=== PATIENT | female | born 1965 | race Caucasian/White ===

== ENCOUNTER → 2017-05-07 | Outpatient (CLI) | payer BC ==
[~2017-05-07] MED LIST: ACET-749 PO; CLRD24 PO; FRRG27 PO; MULT-506 PO; NAPR-1169 PO; OSCAL PO
--- NOTE | 2017-05-08 07:57 | MAMMOGRAPHY REPORT ---
BILATERAL DIGITAL SCREENING MAMMOGRAM TOMOSYNTHESIS WITH CAD: 05/07/2017 CLINICAL HISTORY: Routine screening. TECHNIQUE: Breast tomosynthesis in addition to standard 2D mammography was performed. Current study was also evaluated with a Computer Aided Detection (CAD) system. COMPARISON: Comparison is made to exams dated: 05/03/2016 mammogram, 04/29/2015 mammogram, 04/28/2014 beto mogram, 04/27/2013 mammogram, 04/25/2012 mammogram, and 04/20/2011 mammogram - [facility] BREAST COMPOSITION: The tissue of both breasts is heterogeneously dense, which may obscure small mas ses. FINDINGS: There is stable asymmetry in the superior left breast. No suspicious mass, architectural d istortion or cluster of suspicious microcalcifications is seen. IMPRESSION: ACR BI-RADS CATEGORY 1: NEGATIVE There is no mammographic evidence of malignancy. A 1 year screening mammogram is recommended. The pa tient will receive written notification of the results. Approximately 10% of breast cancers are not detected with mammography. A negative mammographic report should not delay biopsy if a clinically suggestive mass is present. Machelle Pastor M.D. ay/:05/07/2017 16:29:30 Survival Equipment Repairer: Jani ROSE(Torie)(Schuyler), [facility] letter sent: Normal 1/2 BI-RADS Code: ACR BI-RADS Category 1: Negative
== END | disposition home or self-care (01) ==
LOC: C.MAMM 08:50
PROVIDERS: ATTEND Obstetrics & Gynecology
DX: Z12.31 Encounter for screening mammogram for malignant neoplasm of breast (principal)

== ENCOUNTER → 2017-06-03 | Outpatient (CLI) | payer BC | END | disposition home or self-care (01) | LOC: C.LABSPEC 13:39 | PROVIDERS: ATTEND Obstetrics & Gynecology | DX: N89.8 Other specified noninflammatory disorders of vagina (principal) ==

== ENCOUNTER → 2017-06-03 | Outpatient (CLI) | payer BC | END | disposition home or self-care (01) | LOC: C.PAPS 14:13 | PROVIDERS: ATTEND Obstetrics & Gynecology | DX: Z01.419 Encounter for gynecological examination (general) (routine) without abnormal findings (principal); Z78.0 Asymptomatic menopausal state ==

== ENCOUNTER 2021-07-02 15:21 | Inpatient (IN) ==
[2021-07-02] MEDS ORDERED: CEFEPIME 2,000 MG/20 ML VIAL IV STA (16:17)
[2021-07-02] MEDS ORDERED: REMDESIVIR 200 MG in SODIUM CHLORIDE 0.9% 210 ML IV STA (16:29)
[2021-07-02] MEDS ORDERED: SODIUM CHLORIDE 0.9% 1000ML 1,000 ML IV SCH ×2 (16:30→17:30)
[2021-07-02] MEDS ORDERED: SODIUM CHLORIDE 0.9% 10ML FLUSH IV SCH (16:30)
[2021-07-02] MEDS ORDERED: ACETAMINOPHEN 1,000 MG/100 ML VIAL IV STA (16:33)
[2021-07-02] MEDS ORDERED: ALBUT/IPRATROP 3MG/0.5MG NEB 3 ML VIAL NEB ONE (16:34)
--- NOTE | 2021-07-02 16:34 | Emergency Department Note ---
History of Present Illness General Chief complaint: Shortness of Breath/Dyspnea Stated complaint: SOB COUGH CONGESTION Time Seen by Provider: 07/02/21 16:16 History of Present Illness 56-year-old female who presents to the ED with a chief complaint of shortness of breath. The patient states that she had had some sinus infection-like symptoms and was tested for Covid on last Saturday. Her test was positive. Since that time she has developed a cough over the past couple of days, decreased appetite. Her shortness of breath that is worse with exertion. She also reports tightness in her chest. She also reports decreased energy. No additional complaints at this time. Home Medications Medication Instructions Recorded Confirmed Type cetirizine 10 mg capsule (Allergy 10 mg PO QA 06/16/19 06/20/20 History Relief (cetirizine)) montelukast 10 mg tablet 10 mg PO QA 06/16/19 06/20/20 History calcium carbonate 500 mg calcium 1,000 mg PO [facility] 03/25/20 06/20/20 History (1,250 mg) chewable tablet (Calcium 500) cyanocobalamin (vitamin B-12) 2,500 mcg PO [facility] 03/25/20 06/20/20 History 2,500 mcg tablet fluticasone propionate 50 1 spray INTRANASAL [facility] 03/25/20 06/20/20 History mcg/actuation nasal spray,suspension (Flonase Allergy Relief) hydrochlorothiazide 25 mg tablet 25 mg PO [facility] 03/25/20 06/20/20 History multivitamin 1 tab PO [facility] 03/25/20 06/20/20 History tramadol 50 mg tablet 50 mg PO Q6 PRN #28 tab 04/04/20 06/20/20 Rx clindamycin phosphate 1 % topical 1 applic TOPICAL BID #30 g 06/20/20 06/20/20 Rx gel escitalopram oxalate 5 mg tablet 5 mg PO DAILY #30 tab 07/25/20 Rx (Lexapro) Allergies Allergy/AdvReac Type Severity Reaction Status Date / Time gluten Allergy Severe celiac's Verified 06/20/20 10:11 disease wheat Allergy Severe celiac's Verified 06/20/20 10:11 diease adhesive Allergy Mild Rash Verified 06/20/20 10:11 Sulfa (Sulfonamide Allergy Unknown CHILDHOOD Verified 06/20/20 10:11 Antibiotics) - UNKNOWN Past Med/Surg History Medical History (Updated 07/02/21 @ 19:25 by Pj Sidhu DO) Anxiety Celiac disease eats gluten free HTN (hypertension) Hx of menorrhagia IBS (irritable bowel syndrome) Osteoarthritis Surgical History H/O sinus surgery History of colonoscopy History of dilatation and curettage History of wisdom tooth extraction S/P tubal ligation Status post hysteroscopic ablation of endometrium Family History Aunt Ovarian cancer maternal Breast cancer maternal Family history of diabetes mellitus Mother Breast cancer Other No family history of adverse response to anesthesia Social History Smoking Status: Never smoker Second Hand Exposure: Yes (parents smoked); Hx Alcohol Use: No Hx Substance Use: No Preferred Language: Belarusian Communication Ability: Effective Location Director Required: No Beliefs That Will Affect Care: None marital status: Current Living Situation: Spouse current occupational status: employed Feels Safe at Home: Yes Assistive Devices: Glasses Review of Systems A total of 10 systems reviewed and were otherwise negative Physical Exam Vital Signs Vital Signs - 24 hr 07/02/21 16:06 07/02/21 16:28 07/02/21 16:30 Temperature 39.1 C H Temperature Source Oral Pulse Rate 103 H 96 H Pulse Rate [Right Radial] Respiratory Rate 22 26 H Respiratory Effort / Characteristics Blood Pressure 97/58 L Blood Pressure Mean 71 Pulse Oximetry 56 L 90 92 Oxygen Delivery Method Room Air Oxymask Oxymask Oxygen Flow Rate 15 12 Sepsis Recent Fever Within 48 Hours Yes Sepsis New/Unexplained Change in Mental Status N/A Sepsis Action Taken by Nursing No Action Required 07/02/21 17:00 07/02/21 17:04 07/02/21 17:30 Temperature Temperature Source Pulse Rate 96 H 102 H Pulse Rate [Right Radial] 94 H Respiratory Rate 26 H 22 28 H Respiratory Effort / Characteristics Short of Breath Non-Labored Spontaneous Short of Breath Blood Pressure 129/60 Blood Pressure Mean 83 Pulse Oximetry 90 90 89 L Oxygen Delivery Method Oxymask Oxyhood Nebulizer Oxygen Flow Rate 12 12 10 Sepsis Recent Fever Within 48 Hours Sepsis New/Unexplained Change in Mental Status Sepsis Action Taken by Nursing 07/02/21 17:45 07/02/21 18:00 07/02/21 18:15 Temperature 37.8 C H Temperature Source Oral Pulse Rate 104 H 101 H 93 H Pulse Rate [Right Radial] Respiratory Rate 30 H 28 H 29 H Respiratory Effort / Characteristics Non-Labored Blood Pressure 121/57 L Blood Pressure Mean 78 Pulse Oximetry 89 L 78 L 78 L Oxygen Delivery Method Nebulizer Oxymask Non-rebreather Oxygen Flow Rate 10 12 15 Sepsis Recent Fever Within 48 Hours Sepsis New/Unexplained Change in Mental Status Sepsis Action Taken by Nursing 07/02/21 18:30 07/02/21 18:45 07/02/21 19:00 Temperature Temperature Source Pulse Rate 91 H 88 86 Pulse Rate [Right Radial] Respiratory Rate 26 H 24 24 Respiratory Effort / Characteristics Blood Pressure 121/63 124/66 Blood Pressure Mean 82 85 Pulse Oximetry 86 L 91 88 L Oxygen Delivery Method Non-rebreather Non-rebreather Non-rebreather Oxygen Flow Rate 15 15 15 Sepsis Recent Fever Within 48 Hours Sepsis New/Unexplained Change in Mental Status Sepsis Action Taken by Nursing CONSTITUTIONAL/VITAL SIGNS: Reviewed / noted above. GENERAL: Non-toxic in appearance. INTEGUMENTARY: Warm, dry, and [place]. HEAD: Normocephalic. EYES: without scleral icterus or trauma. ENT/OROPHARYNX: clear and moist. LYMPHADENOPATHY/NECK: Is supple without lymphadenopathy or meningismus. RESPIRATORY: Decreased breath sounds bilaterally with crackles in the bases. Mild increased work of breathing. CARDIOVASCULAR: Regular rate and rhythm. GI/ABDOMEN: Soft and nontender. No organomegaly or pulsatile mass. EXTREMITIES: Warm and well perfused. BACK: No CVA tenderness. NEUROLOGICAL: Intact without focal deficits. PSYCHIATRIC: normal affect. MUSCULOSKELETAL: Normally developed with good muscle tone. TRIAGE NURSING DOCUMENTATION REVIEWED. Procedures ABG Interpretation ABG Interpretation 1: ABG Results: pH 7.47/PCO2 35/PO2 49/84.7% Additional Comments: The patient has a normal acid-base status and adequate ventilation. Oxygenation is poor despite 10 L of oxygen via facemask. Course Administered Medications Dexamethasone 6 mg/ Syringe 1.5 mls @ 1 mls/min IV DAILY NAKIA Stop: 07/12/21 16:29 Last Admin: 07/02/21 18:08 Dose: 1 mls/min Documented by: [id number] Discontinued Medications Albuterol (Albut/Ipratrop 3mg/0.5mg Neb 3 Ml Vial) 12 ml NEB ONE ONE Stop: 07/02/21 16:35 Last Admin: 07/02/21 17:02 Dose: 12 ml Documented by: [id number] Sodium Chloride (Nss 1000ml) 1,000 mls @ 999 mls/hr IV .Q1H1M NAKIA Stop: 07/02/21 17:18 Last Infusion: 07/02/21 19:14 Dose: 999 mls/hr Documented by: [id number] Admin: 07/02/21 17:13 Dose: 999 mls/hr Documented by: [id number] Sodium Chloride (Nss 1000ml) 1,000 mls @ 999 mls/hr IV .Q1H1M NAKIA Stop: 07/02/21 18:29 Last Admin: 07/02/21 18:14 Dose: 999 mls/hr Documented by: [id number] Cefepime HCl (Maxipime) 2,000 mg in 20 mls @ 5 mls/min IV NOW STA; Protocol Stop: 07/02/21 16:20 Last Admin: 07/02/21 17:13 Dose: 5 mls/min Documented by: [id number] Remdesivir 200 mg/ Sodium (Chloride) 250 mls @ 125 mls/hr IV ONE STA; Protocol Stop: 07/02/21 18:28 Last Admin: 07/02/21 18:12 Dose: 125 mls/hr Documented by: [id number] Acetaminophen (Ofirmev) 1,000 mg in 100 mls @ 400 mls/hr IV NOW STA Stop: 07/02/21 16:47 Last Infusion: 07/02/21 17:31 Dose: 0 mls/hr Documented by: [id number] Admin: 07/02/21 17:13 Dose: 400 mls/hr Documented by: [id number] Critical Care Time Critical Care Time: Yes Total Critical Care Time: 40 I have personally spent 40 minutes of critical care time in the direct management of this patient. This includes bedside care, interpretation of diagnostic studies, and testing, discussion with consultants, patient, and family members, and other required patient management activities. This 40 minutes is in excess of all separately billable procedures. Medical Decision Making Differential Diagnosis Differential includes viral illness, influenza, streptococcal pharyngitis, meningitis, pneumonia, sinusitis, UTI, pyelonephritis, otitis media. Medical Records Attestation: I reviewed the patient's medical records. Home Medications Current Medication List: was personally reviewed by me Laboratory Data Attestation: I reviewed the patient's lab results. Result diagrams: 07/02/21 17:12 07/02/21 17:12 Lab Results 07/02/21 07/02/21 07/02/21 Range/Units 17:05 17:12 17:12 WBC 9.23 (4.8-10.8) K/uL RBC 4.06 L (4.2-5.4) M/uL Hgb 12.6 (12.0-16.0) g/dL Hct 36.4 L (37-47) % MCV 89.7 (80-100) fL MCH 31.0 (25-34) pg MCHC 34.6 (32-36) g/dL RDW Std Deviation 41.0 (36.4-46.3) fL RDW Coeff of Sheng 12.5 (11.5-14.5) % Plt Count 303 (130-400) K/uL MPV 9.6 (7.4-10.4) fL Immature Gran % (Auto) 1.1 % Neut % (Auto) 82.5 % Lymph % (Auto) 9.5 % [place] % (Auto) 6.5 % Eos % (Auto) 0.1 % Baso % (Auto) 0.3 % Neut # (Auto) 7.61 H (1.4-6.5) K/uL Lymph # (Auto) 0.88 L (1.2-3.4) K/uL [place] # (Auto) 0.60 H (0.11-0.59) K/uL Eos # (Auto) 0.01 (0-0.5) K/uL Baso # (Auto) 0.03 (0-0.2) K/uL Immature Gran # (Auto) 0.10 H (0.00-0.02) K/uL PT 10.6 (9.0-12.0) Seconds INR 1.0 (0.9-1.1) APTT 27.5 (21.0-31.0) Seconds PTT Ratio 1.0 ABG pH (7.35-7.45) ABG pCO2 (35-46) mmHg ABG pO2 (80-95) mmHg ABG HCO3 (19-24) mmol/L ABG O2 Saturation (90-95) % ABG Base Excess (-9-1.8) mEq/L Giovanni Test (Pos) Barometric Pressure mm/Hg Oxygen Given Sodium (136-145) mmol/L Potassium (3.5-5.1) mmol/L Chloride (98-107) mmol/L Carbon Dioxide (21-32) mmol/L Anion Gap (3-11) BUN (7-18) mg/dl Creatinine (0.6-1.2) mg/dl Est Cr Clr Drug Dosing ml/min Est GFR ( Amer) ml/min Est GFR (Non-Af Amer) ml/min BUN/Creatinine Ratio (10-20) Glucose (70-99) mg/dl Lactate (0.4-2.0) mmol/L Calcium (8.5-10.1) mg/dl Magnesium (1.8-2.4) mg/dl Total Bilirubin (0.2-1) mg/dl AST (15-37) U/L ALT (12-78) U/L Alkaline Phosphatase (45-117) U/L Troponin I (0-0.045) ng/ml Total Protein (6.4-8.2) gm/dl Albumin (3.4-5.0) gm/dl Globulin (2.5-4.0) gm/dl Albumin/Globulin Ratio (0.9-2) Procalcitonin (0-0.5) ng/ml COVID-19 Eval Order SARS-CoV-2 (PCR) POSITIVE A* (Negative) 07/02/21 07/02/21 07/02/21 Range/Units 17:12 17:12 17:12 WBC (4.8-10.8) K/uL RBC (4.2-5.4) M/uL Hgb (12.0-16.0) g/dL Hct (37-47) % MCV (80-100) fL MCH (25-34) pg MCHC (32-36) g/dL RDW Std Deviation (36.4-46.3) fL RDW Coeff of Sheng (11.5-14.5) % Plt Count (130-400) K/uL MPV (7.4-10.4) fL Immature Gran % (Auto) % Neut % (Auto) % Lymph % (Auto) % [place] % (Auto) % Eos % (Auto) % Baso % (Auto) % Neut # (Auto) (1.4-6.5) K/uL Lymph # (Auto) (1.2-3.4) K/uL [place] # (Auto) (0.11-0.59) K/uL Eos # (Auto) (0-0.5) K/uL Baso # (Auto) (0-0.2) K/uL Immature Gran # (Auto) (0.00-0.02) K/uL PT (9.0-12.0) Seconds INR (0.9-1.1) APTT (21.0-31.0) Seconds PTT Ratio ABG pH (7.35-7.45) ABG pCO2 (35-46) mmHg ABG pO2 (80-95) mmHg ABG HCO3 (19-24) mmol/L ABG O2 Saturation (90-95) % ABG Base Excess (-9-1.8) mEq/L Giovanni Test (Pos) Barometric Pressure mm/Hg Oxygen Given Sodium 131 L (136-145) mmol/L Potassium 3.4 L (3.5-5.1) mmol/L Chloride 92 L (98-107) mmol/L Carbon Dioxide 32 (21-32) mmol/L Anion Gap 7.0 (3-11) BUN 17 (7-18) mg/dl Creatinine 1.41 H (0.6-1.2) mg/dl Est Cr Clr Drug Dosing 43.2 ml/min Est GFR ( Amer) 47.5 ml/min Est GFR (Non-Af Amer) 41.0 ml/min BUN/Creatinine Ratio 12.3 (10-20) Glucose 143 H (70-99) mg/dl Lactate 2.0 (0.4-2.0) mmol/L Calcium 8.6 (8.5-10.1) mg/dl Magnesium 2.1 (1.8-2.4) mg/dl Total Bilirubin 0.6 (0.2-1) mg/dl AST 54 H (15-37) U/L ALT 36 (12-78) U/L Alkaline Phosphatase 73 (45-117) U/L Troponin I < 0.015 (0-0.045) ng/ml Total Protein 7.6 (6.4-8.2) gm/dl Albumin 2.5 L (3.4-5.0) gm/dl Globulin 5.1 H (2.5-4.0) gm/dl Albumin/Globulin Ratio 0.5 L (0.9-2) Procalcitonin 0.10 (0-0.5) ng/ml COVID-19 Eval Order SARS-CoV-2 (PCR) (Negative) 07/02/21 07/02/21 Range/Units 17:12 18:25 WBC (4.8-10.8) K/uL RBC (4.2-5.4) M/uL Hgb (12.0-16.0) g/dL Hct (37-47) % MCV (80-100) fL MCH (25-34) pg MCHC (32-36) g/dL RDW Std Deviation (36.4-46.3) fL RDW Coeff of Sheng (11.5-14.5) % Plt Count (130-400) K/uL MPV (7.4-10.4) fL Immature Gran % (Auto) % Neut % (Auto) % Lymph % (Auto) % [place] % (Auto) % Eos % (Auto) % Baso % (Auto) % Neut # (Auto) (1.4-6.5) K/uL Lymph # (Auto) (1.2-3.4) K/uL [place] # (Auto) (0.11-0.59) K/uL Eos # (Auto) (0-0.5) K/uL Baso # (Auto) (0-0.2) K/uL Immature Gran # (Auto) (0.00-0.02) K/uL PT (9.0-12.0) Seconds INR (0.9-1.1) APTT (21.0-31.0) Seconds PTT Ratio ABG pH 7.47 H (7.35-7.45) ABG pCO2 35 (35-46) mmHg ABG pO2 49 L (80-95) mmHg ABG HCO3 25 H (19-24) mmol/L ABG O2 Saturation 84.7 L (90-95) % ABG Base Excess 1.3 (-9-1.8) mEq/L Giovanni Test Pos (Pos) Barometric Pressure 734.4 mm/Hg Oxygen Given 10 Sodium (136-145) mmol/L Potassium (3.5-5.1) mmol/L Chloride (98-107) mmol/L Carbon Dioxide (21-32) mmol/L Anion Gap (3-11) BUN (7-18) mg/dl Creatinine (0.6-1.2) mg/dl Est Cr Clr Drug Dosing ml/min Est GFR ( Amer) ml/min Est GFR (Non-Af Amer) ml/min BUN/Creatinine Ratio (10-20) Glucose (70-99) mg/dl Lactate (0.4-2.0) mmol/L Calcium (8.5-10.1) mg/dl Magnesium (1.8-2.4) mg/dl Total Bilirubin (0.2-1) mg/dl AST (15-37) U/L ALT (12-78) U/L Alkaline Phosphatase (45-117) U/L Troponin I (0-0.045) ng/ml Total Protein (6.4-8.2) gm/dl Albumin (3.4-5.0) gm/dl Globulin (2.5-4.0) gm/dl Albumin/Globulin Ratio (0.9-2) Procalcitonin (0-0.5) ng/ml COVID-19 Eval Order Covid19 at [facility] SARS-CoV-2 (PCR) (Negative) Imaging Data Radiologist's Impression: Chest X-Ray 07/02/21 16:18 SINGLE VIEW CHEST CLINICAL HISTORY: Cough and fever. FINDINGS: An AP, portable, upright chest radiograph is obtained. No prior studies are available for comparison at the time of dictation. The cardiomediastinal silhouette is unremarkable. There is elevation of the right hemidiaphragm. Multifocal airspace consolidation is seen throughout both lungs, most confluent at the left lung base. No large pleural effusion or pneumothorax is identified. The bony thorax is grossly intact. There is mild thoracolumbar scoliosis. IMPRESSION: Multifocal airspace consolidation is typical for pneumonia. Clinical correlation will be required and radiographic follow-up to resolution is recommended. ACT 112: Negative or not required by law. Electronically signed by: Darell Guillen M.D. 07/02/2021 4:57 PM ECG Data Attestation: I personally reviewed and interpreted this ECG as follows: Additional Comments: Twelve-lead EKG: Per my interpretation there is a normal sinus rhythm at a rate of 98. No ST elevation. No PVCs. Normal QTC. MDM Narrative 56-year-old female presents with shortness of breath and hypoxia in the setting of a positive recent Covid test. Details listed above. Her temperature here was 39.1. Heart rate was 103. Room air oxygen saturations when she arrived was 56% on room air. Blood pressure was 98/57. Exam reveals some diminished breath sounds bilaterally with some crackles primarily in the bases. She does not appear to be in acute respiratory distress. The patient's chest x-ray shows multifocal bilateral pneumonia. CBC was unremarkable. Chemistry panel was unremarkable. Troponin was negative. The patient initially was around 91% on a facemask at 15 L. She was given an hour DuoNeb treatment. Following the treatment, her oxygen saturation dropped to about 81%. ABG shows an adequate pH with a normal PCO2 but hypoxia with saturations of 84.7%. PO2 is 49. After this I did talk with Dr. Paz. He did recommend proning the patient. The patient feels comfortable in that position. Her oxygen saturations did improve to 88 to 91% with proning. The patient was given IV Tylenol for her fever. Her fever did improve. She was given IV cefepime empirically. She was given IV Decadron 6 mg as well as IV remdesivir. She was given 2 L normal saline IV. She will be seen by the hospitalist for further inpatient evaluation and care. Impression & Plan Pneumonia due to 2019 novel coronavirus, Hypoxia Discharge Plan Visit Data Chief Complaint: Shortness of Breath/Dyspnea Stated Complaint: SOB COUGH CONGESTION ED Provider: Pj Sidhu Discharge Problem: Pneumonia due to 2019 novel coronavirus, Hypoxia Patient Disposition: Being Evaluated by Hospitalist Forms Stand Alone Forms: My ARCsys Prescriptions Prescriptions: No Action tramadol 50 mg tablet 50 mg PO Q6 PRN (Reason: pain) Qty: 28 RF: 0 escitalopram oxalate [Lexapro] 5 mg tablet 5 mg PO DAILY Qty: 30 RF: 11 montelukast 10 mg tablet 10 mg PO QAM RF: 0 Allergy Relief (cetirizine) 10 mg capsule 10 mg PO QAM RF: 0 clindamycin phosphate 1 % gel 1 applic topical BID Qty: 30 RF: 2 calcium carbonate [Calcium 500] 500 mg calcium (1,250 mg) Tablet,Chewable 1,000 mg PO QAM RF: 0 hydrochlorothiazide 25 mg Tablet 25 mg PO QAM RF: 0 multivitamin Tablet,Chewable 1 tab PO QAM RF: 0 fluticasone propionate [Flonase Allergy Relief] 50 mcg/actuation [place],Suspension 1 spray INTRANASAL QAM RF: 0 cyanocobalamin (vitamin B-12) 2,500 mcg Tablet 2,500 mcg PO QAM RF: 0 Referrals Referrals: Zaida Bansal PA-C [Primary Care Provider] -
--- NOTE | 2021-07-02 16:58 | XRay Report ---
SINGLE VIEW CHEST CLINICAL HISTORY: Cough and fever. FINDINGS: An AP, portable, upright chest radiograph is obtained. No prior studies are available for c omparison at the time of dictation. The cardiomediastinal silhouette is unremarkable. There is eleva tion of the right hemidiaphragm. Multifocal airspace consolidation is seen throughout both lungs, mos t confluent at the left lung base. No large pleural effusion or pneumothorax is identified. The bony thorax is grossly intact. There is mild thoracolumbar scoliosis. IMPRESSION: Multifocal airspace consolidation is typical for pneumonia. Clinical correlation will be required and radiographic follow-up to resolution is recommended. ACT 112: Negative or not required by law. Electronically signed by: Darell Guillen M.D. 07/02/2021 4:57 PM
[2021-07-02 17:24] LABS: Hematocrit (blood only) 36.4 % (37-47); Hemoglobin 12.6 g/dL (12.0-16.0); Mean Corpuscular Hgb Conc 34.6 g/dL (32-36); Mean Corpuscular Volume 89.7 fL (80-100); Mean Platelet Volume 9.6 fL (7.4-10.4); Platelet Count 303 K/uL (130-400); RDW Coefficient of Variation 12.5 % (11.5-14.5); Red Blood Count 4.06 M/uL (4.2-5.4); White Blood Count 9.23 K/uL (4.8-10.8)
[2021-07-02 17:35] LABS: Partial Thromboplastin Time 27.5 Seconds (21.0-31.0); Prothrombin Time 10.6 Seconds (9.0-12.0)
[2021-07-02 17:51] LABS: Alanine Aminotransferase 36 U/L (12-78); Albumin Level 2.5 gm/dl (3.4-5.0); Aspartate Aminotransferase 54 U/L (15-37); BUN Creatinine Ratio 12.3 (10-20); Blood Urea Nitrogen 17 mg/dl (7-18); Calcium 8.6 mg/dl (8.5-10.1); Carbon Dioxide 32 mmol/L (21-32); Chloride 92 mmol/L (98-107); Creatinine Clr Calc Pharmacy 43.2 ml/min; Est GFR (African American) 47.5 ml/min; Glucose 143 mg/dl (70-99); Magnesium 2.1 mg/dl (1.8-2.4); Potassium 3.4 mmol/L (3.5-5.1); Sodium 131 mmol/L (136-145)
[2021-07-02 17:55] LABS: Albumin Globulin Ratio 0.5 (0.9-2); Alkaline Phosphatase 73 U/L (45-117); Bilirubin,Total 0.6 mg/dl (0.2-1); Globulin 5.1 gm/dl (2.5-4.0); Total Protein 7.6 gm/dl (6.4-8.2); Troponin I < 0.015 ng/ml (0-0.045)
[2021-07-02 17:58] LABS: Basophils # (auto) 0.03 K/uL (0-0.2); Basophils % (auto) 0.3 %; Eosinophils # (auto) 0.01 K/uL (0-0.5); Eosinophils % (auto) 0.1 %; Immature Granulocytes % (auto) 1.1 %; Lymphocytes # (auto) 0.88 K/uL (1.2-3.4); Lymphocytes % (auto) 9.5 %; Monocytes % (auto) 6.5 %; Neutrophils # (auto) 7.61 K/uL (1.4-6.5); Neutrophils % (auto) 82.5 %
[2021-07-02] MEDS: dexAMETHasone 6 MG in SYRINGE 0 ML IV SCH (18:08)
[2021-07-02 18:33] LABS: Base Excess ABG 1.3 mEq/L (-9-1.8); HCO3 ABG 25 mmol/L (19-24); Oxygen Saturation ABG 84.7 % (90-95); PCO2 ABG 35 mmHg (35-46); PO2 ABG 49 mmHg (80-95); pH ABG 7.47 (7.35-7.45)
[2021-07-02 18:39] LABS: Allen Test Pos (Pos)
[2021-07-02] MEDS ORDERED: POTASSIUM CHLORIDE 40 MEQ in SODIUM CHLORIDE 0.9% 1000ML 1,000 ML IV ONE (19:44)
--- NOTE | 2021-07-02 20:23 | History & Physical Report ---
Date of Service July 02, 2021 Assessment & Plan (1) Acute hypoxemic respiratory failure: Plan: Secondary to severe COVID-19 pneumonia Failed outpatient treatment Hypertension, slight elevated Hypokalemia, ARF secondary to illness, home diuretic contributory NAFLD, patient follows with [facility] Hyperglycemia rule out DM PCU BiPAP Decadron and Remdesivir for severe COVID-19 pneumonia. Pulmonary consult Re: Respiratory failure, severe COVID-19 pneumonia Monitor creatinine response to IVF, hold home diuretic for now DVT prophylaxis Heparin subcu Full code Patient's requesting updates from providers. Mr. Earle Burgos, contact number [phone]. Text document was generated using [employer] voice recognition software. It may contain grammatical or spelling errors. Kindly contact undersigned for clarification of any documentation item in que stion. History of Present Illness Chief Complaint: Worsening shortness of breath, Covid positive Primary Care Provider: Dr. Swartz History obtained from patient, family, and records. Medical history significant for hypertension, celiac disease, NAFLD. 10 days ago, patient noted sinus pressure with congestion symptoms. Patient prescribed cefdinir and prednisone course for possible sinusitis. Outpatient COVID-19 test noted to be positive. Patient has not received COVID-19 vaccination. Worsening congestion with sticky cough and shortness of breath symptoms over the next few days. No chest pain. Patient seen at PCPs office today. O2 sats no elzbieta to be 80s on room air. Patient directed to the ER for evaluation. Decadron, remdesivir, neb treatment administered at the ER. O2 sats still in the 80s despite patient being proned at the ER. 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 Allergies Allergy/AdvReac Type Severity Reaction Status Date / Time gluten Allergy Severe celiac's Verified 07/02/21 20:44 disease wheat Allergy Severe celiac's Verified 07/02/21 20:44 diease adhesive Allergy Mild Rash Verified 07/02/21 20:44 Sulfa (Sulfonamide Allergy Unknown CHILDHOOD Verified 07/02/21 20:44 Antibiotics) - UNKNOWN Home Medications Medication Instructions Recorded Confirmed Type cetirizine 10 mg capsule (Allergy 10 mg PO QAM 06/16/19 07/02/21 History Relief (cetirizine)) montelukast 10 mg tablet 10 mg PO QAM 06/16/19 07/02/21 History calcium carbonate 500 mg calcium 1,000 mg PO QAM 03/25/20 07/02/21 History (1,250 mg) chewable tablet (Calcium 500) cyanocobalamin (vitamin B-12) 2,500 mcg PO QAM 03/25/20 07/02/21 History 2,500 mcg tablet fluticasone propionate 50 1 spray INTRANASAL QAM 03/25/20 07/02/21 History mcg/actuation nasal spray,suspension (Flonase Allergy Relief) hydrochlorothiazide 25 mg tablet 25 mg PO QAM 03/25/20 07/02/21 History escitalopram oxalate 5 mg tablet 5 mg PO DAILY #30 tab 07/25/20 07/02/21 Rx (Lexapro) albuterol sulfate 90 mcg/actuation 1 - 2 puff INHALATION Q6 PRN 07/02/21 07/02/21 History aerosol inhaler benzonatate 100 mg capsule 100 mg PO TID PRN 07/02/21 07/02/21 History (Tesdonovan Mcpherson) chromium 1,000 mcg tablet 100 mcg PO DAILY 07/02/21 07/02/21 History glucosam 750 mg-chondroi 100 1 tab PO DAILY 07/02/21 07/02/21 History mg-hyalur 1.65 mg-CF borate 108 mg tablet ([facility] [employer]) loratadine 10 mg tablet (Claritin) 10 mg PO DAILY 07/02/21 07/02/21 History multivitamin 1 tab PO DAILY 07/02/21 07/02/21 History pantoprazole 40 mg tablet,delayed 40 mg PO DAILY 07/02/21 07/02/21 History release Past Med/Surg History Medical History (Updated 07/03/21 @ 11:03 by Gualberto Patel MD) Anxiety Celiac disease eats gluten free HTN (hypertension) Hx of menorrhagia IBS (irritable bowel syndrome) Osteoarthritis Surgical History H/O sinus surgery History of colonoscopy History of dilatation and curettage History of wisdom tooth extraction S/P tubal ligation Status post hysteroscopic ablation of endometrium Family History Aunt Ovarian cancer maternal Breast cancer maternal Family history of diabetes mellitus Mother Breast cancer Other No family history of adverse response to anesthesia Social History Smoking Status: Never smoker Second Hand Exposure: No; Do You Dip or Chew Tobacco: No; Tobacco Cessation Education Requested by Patient: No Hx Alcohol Use: No Hx Substance Use: No Preferred Language: Divehi Communication Ability: Effective 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 Beliefs That Will Affect Care: None marital status: Current Living Situation: Spouse current occupational status: employed Other Information That Helps Us Care for You: No Feels Safe at Home: Yes Safety Concerns: Feels Safe At This Time Assistive Devices: None Review of Systems Review of Systems: As per HPI, all 10 systems reviewed, all other ROS negative Physical Exam Physical Exam: GENERAL: Slightly uncomfortable, slightly anxious, no respiratory distress, prone position at the ER SKIN: Normal color, warm HEENT: [place] palpebral conjunctivae, no ptosis, dry buccal mucosa, O2 mask in place NECK : Supple, no tenderness CHEST : Decreased breath sounds, occasional expiratory wheezes, no tenderness HEART : RRR, no obvious murmurs ABDOMEN: Some distention, nontender EXTREMITIES : No LE swelling/tenderness, no other conspicuous deformities noted NEUROLOGIC : Coherent, no facial asymmetry, no other gross focality Results & Data Results & Data ([facility]) Vital Signs (Past 12 Hours) Vital Signs Temp Pulse Pulse Resp BP Pulse Ox 07/02/21 19:15 86 25 H 124/66 87 L 07/02/21 19:00 86 24 124/66 88 L 07/02/21 18:45 88 24 91 07/02/21 18:30 91 H 26 H 121/63 86 L 07/02/21 18:15 93 H 29 H 78 L 07/02/21 18:00 37.8 C H 101 H 28 H 121/57 L 78 L 07/02/21 17:45 104 H 30 H 89 L 07/02/21 17:30 102 H 28 H 129/60 89 L 07/02/21 17:04 94 H 22 90 07/02/21 17:00 96 H 26 H 90 07/02/21 16:30 96 H 26 H 92 07/02/21 16:28 90 07/02/21 16:06 39.1 C H 103 H 22 97/58 L 56 L Laboratory Results Laboratory Results WBC 9.23 K/uL (4.8-10.8) 07/02/21 17:12 RBC 4.06 M/uL (4.2-5.4) L 07/02/21 17:12 Hgb 12.6 g/dL (12.0-16.0) 07/02/21 17:12 Hct 36.4 % (37-47) L 07/02/21 17:12 MCV 89.7 fL (80-100) 07/02/21 17:12 MCH 31.0 pg (25-34) 07/02/21 17:12 MCHC 34.6 g/dL (32-36) 07/02/21 17:12 RDW Std Deviation 41.0 fL (36.4-46.3) 07/02/21 17:12 RDW Coeff of Sheng 12.5 % (11.5-14.5) 07/02/21 17:12 Plt Count 303 K/uL (130-400) 07/02/21 17:12 MPV 9.6 fL (7.4-10.4) 07/02/21 17:12 Immature Gran % (Auto) 1.1 % 07/02/21 17:12 Neut % (Auto) 82.5 % 07/02/21 17:12 Lymph % (Auto) 9.5 % 07/02/21 17:12 Dane % (Auto) 6.5 % 07/02/21 17:12 Eos % (Auto) 0.1 % 07/02/21 17:12 Baso % (Auto) 0.3 % 07/02/21 17:12 Neut # (Auto) 7.61 K/uL (1.4-6.5) H 07/02/21 17:12 Lymph # (Auto) 0.88 K/uL (1.2-3.4) L 07/02/21 17:12 Dane # (Auto) 0.60 K/uL (0.11-0.59) H 07/02/21 17:12 Eos # (Auto) 0.01 K/uL (0-0.5) 07/02/21 17:12 Baso # (Auto) 0.03 K/uL (0-0.2) 07/02/21 17:12 Immature Gran # (Auto) 0.10 K/uL (0.00-0.02) H 07/02/21 17:12 PT 10.6 Seconds (9.0-12.0) 07/02/21 17:12 INR 1.0 (0.9-1.1) 07/02/21 17:12 APTT 27.5 Seconds (21.0-31.0) 07/02/21 17:12 PTT Ratio 1.0 07/02/21 17:12 ABG pH 7.47 (7.35-7.45) H 07/02/21 18:25 ABG pCO2 35 mmHg (35-46) 07/02/21 18:25 ABG pO2 49 mmHg (80-95) L 07/02/21 18:25 ABG HCO3 25 mmol/L (19-24) H 07/02/21 18:25 ABG O2 Saturation 84.7 % (90-95) L 07/02/21 18:25 ABG Base Excess 1.3 mEq/L (-9-1.8) 07/02/21 18:25 Giovanni Test Pos (Pos) 07/02/21 18:25 Barometric Pressure 734.4 mm/Hg 07/02/21 18:25 Oxygen Given 10 07/02/21 18:25 Sodium 131 mmol/L (136-145) L 07/02/21 17:12 Potassium 3.4 mmol/L (3.5-5.1) L 07/02/21 17:12 Chloride 92 mmol/L (98-107) L 07/02/21 17:12 Carbon Dioxide 32 mmol/L (21-32) 07/02/21 17:12 Anion Gap 7.0 (3-11) 07/02/21 17:12 BUN 17 mg/dl (7-18) 07/02/21 17:12 Creatinine 1.41 mg/dl (0.6-1.2) H 07/02/21 17:12 Est Cr Clr Drug Dosing 43.2 ml/min 07/02/21 17:12 Est GFR ( Amer) 47.5 ml/min 07/02/21 17:12 Est GFR (Non-Af Amer) 41.0 ml/min 07/02/21 17:12 BUN/Creatinine Ratio 12.3 (10-20) 07/02/21 17:12 Glucose 143 mg/dl (70-99) H 07/02/21 17:12 Lactate 2.0 mmol/L (0.4-2.0) 07/02/21 17:12 Calcium 8.6 mg/dl (8.5-10.1) 07/02/21 17:12 Magnesium 2.1 mg/dl (1.8-2.4) 07/02/21 17:12 Total Bilirubin 0.6 mg/dl (0.2-1) 07/02/21 17:12 AST 54 U/L (15-37) H 07/02/21 17:12 ALT 36 U/L (12-78) 07/02/21 17:12 Alkaline Phosphatase 73 U/L (45-117) 07/02/21 17:12 Troponin I < 0.015 ng/ml (0-0.045) 07/02/21 17:12 Total Protein 7.6 gm/dl (6.4-8.2) 07/02/21 17:12 Albumin 2.5 gm/dl (3.4-5.0) L 07/02/21 17:12 Globulin 5.1 gm/dl (2.5-4.0) H 07/02/21 17:12 Albumin/Globulin Ratio 0.5 (0.9-2) L 07/02/21 17:12 Procalcitonin 0.10 ng/ml (0-0.5) 07/02/21 17:12 COVID-19 Eval Order Covid19 at [facility] 07/02/21 17:12 SARS-CoV-2 (PCR) POSITIVE (Negative) A* 07/02/21 17:05 Impressions Chest X-Ray 07/02/21 16:18 SINGLE VIEW CHEST CLINICAL HISTORY: Cough and fever. FINDINGS: An AP, portable, upright chest radiograph is obtained. No prior studies are available for comparison at the time of dictation. The cardiomediastinal silhouette is unremarkable. There is elevation of the right hemidiaphragm. Multifocal airspace consolidation is seen throughout both lungs, most confluent at the left lung base. No large pleural effusion or pneumothorax is identified. The bony thorax is grossly intact. There is mild thoracolumbar scoliosis. IMPRESSION: Multifocal airspace consolidation is typical for pneumonia. Clinical correlation will be required and radiographic follow-up to resolution is recommended. ACT 112: Negative or not required by law. Electronically signed by: Darell Guillen M.D. 07/02/2021 4:57 PM Diagnostic Findings EKG as per my interpretation rate 100, NSR, LAD, LAFB, T wave inversion lateral leads
[2021-07-02 21:15] LABS: Appearance Urine Clear (Clear); Bacteria Urine Automated Negative (Negative); Bilirubin Urine Negative (Negative); Blood Urine Negative (Negative); Color Urine Yellow; Epithelial Cell Urine Auto 20-30 /lpf (0-5); Glucose Urine UA Negative (Negative); Ketones Urine Trace (Negative); Leukocyte Esterase Urine Negative (Negative); Nitrite Urine Negative (Negative); Protein Urine Trace (Negative); RBC Urine Automated 0-4 /hpf (0-4); Specific Gravity Urine 1.008 (1.000-1.030); Urobilinogen Urine Negative (Negative)
[2021-07-02] MEDS ORDERED: IPRATROPIUM BROMIDE NEB SOLN 0.02% 2.5 ML VIAL INH PRN (22:00)
[2021-07-02] MEDS ORDERED: LEVALBUTEROL 1.25MG/0.5ML NEB INH PRN (22:00)
[2021-07-02] MEDS ORDERED: PROMETHAZINE HCL 12.5 MG in SODIUM CHLORIDE 0.9% 50 ML IV PRN (22:00)
[2021-07-02] MEDS ORDERED: XOPENEX/ATROVENT 1.25mg/0.5MG NEB COMBO NEB PRN (22:00)
[2021-07-02 22:31] LABS: Thyroid Stimulating Hormone 0.664 uIu/ml (0.300-4.500)
[2021-07-02] MEDS: HEPARIN SOD 5,000 UNIT/0.5 ML VIAL SQ SCH (23:58)
[2021-07-02] MEDS: POTASSIUM CHLORIDE 40 MEQ in SODIUM CHLORIDE 0.9% 1000ML 1,000 ML IV SCH (23:58)
[2021-07-03] MEDS: HEPARIN SOD 5,000 UNIT/0.5 ML VIAL SQ SCH ×3 (06:01→19:45)
[2021-07-03] MEDS: dexAMETHasone 6 MG in SYRINGE 0 ML IV SCH (07:33)
[2021-07-03] MEDS: PANTOprazole 40 MG TAB PO SCH (07:34)
[2021-07-03] MEDS: MONTELUKAST SODIUM 10 MG TABLET PO SCH (07:34)
[2021-07-03] MEDS: ESCITALOPRAM OXALATE 10 MG TAB PO SCH (07:34)
[2021-07-03] MEDS: LORATADINE 10 MG TAB PO SCH (07:34)
[2021-07-03] MEDS: CYANOCOBALAMIN (VITAMIN B-12) 2,500 MCG TAB.SUBL SL SCH (07:37)
[2021-07-03] MEDS: MULTIVITAMIN TAB PO SCH (07:38)
[2021-07-03] MEDS: FLUTICASONE PROPIONATE NA SPR 16 GM BTL SCH (07:38)
[2021-07-03 08:06] LABS: Basophils # (auto) 0.01 K/uL (0-0.2); Basophils % (auto) 0.1 %; Hematocrit (blood only) 35.1 % (37-47); Immature Granulocytes # (auto) 0.07 K/uL (0.00-0.02); Immature Granulocytes % (auto) 0.8 %; Lymphocytes # (auto) 0.66 K/uL (1.2-3.4); Lymphocytes % (auto) 7.2 %; Mean Corpuscular Hemoglobin 30.9 pg (25-34); Mean Corpuscular Hgb Conc 34.2 g/dL (32-36); Mean Corpuscular Volume 90.5 fL (80-100); Mean Platelet Volume 9.8 fL (7.4-10.4); Monocytes % (auto) 6.6 %; Neutrophils # (auto) 7.81 K/uL (1.4-6.5); Neutrophils % (auto) 85.3 %; Platelet Count 303 K/uL (130-400); RDW Coefficient of Variation 12.9 % (11.5-14.5); RDW Standard Deviation 42.9 fL (36.4-46.3); Red Blood Count 3.88 M/uL (4.2-5.4); White Blood Count 9.15 K/uL (4.8-10.8)
[2021-07-03 08:06] LABS: Estimated Average Glucose 148 mg/dl; Hemoglobin A1C 6.8 % (4.5-5.6)
[2021-07-03 08:36] LABS: Albumin Globulin Ratio 0.4 (0.9-2); Albumin Level 2.1 gm/dl (3.4-5.0); Bilirubin,Total 0.3 mg/dl (0.2-1); C Reactive Protein 23.2 mg/dl (0-0.29); Calcium 8.4 mg/dl (8.5-10.1); Creatinine Clr Calc Pharmacy 70.3 ml/min; Est GFR (African American) 83.9 ml/min; Est GFR (Non-African American) 72.4 ml/min; Potassium 3.5 mmol/L (3.5-5.1); Total Protein 7.1 gm/dl (6.4-8.2)
[2021-07-03] MEDS: BARICITINIB 2 MG TAB PO SCH (13:10)
--- NOTE | 2021-07-03 13:40 | Pulmonary Consultation ---
Date of Consultation July 03, 2021 Assessment & Plan (1) Acute hypoxemic respiratory failure: (2) Pneumonia due to 2019 novel coronavirus: (3) Hypoxia: Impression: 56-year-old female not vaccinated for Covid presenting with acute Covid pneumonia and hypoxemic respiratory failure. The patient is outside the window for remdesivir. Her CRP is elevated and she does qualify for baricitinib. Recommendations: 1. Covid pneumonia: Continue dexamethasone 6 mg daily. Will initiate treatment with baricitinib and follow clinically. She is outside the window for remdesivir so this will be discontinued. 2. Hypoxemic respiratory failure: Advised the patient to try and self proning is much as possible. We will try and wean her off of CPAP to high flow oxygen to see how she does. We may need to alternate back and forth between high flow and CPAP. Should the patient's condition deteriorate or she develops respiratory distress or were unable to achieve targeted oxygenation, consideration for intubation mechanical ventilation would be appropriate. This was discussed with the patient and she is agreeable if these interventions are required. 3. May consider empiric diuresis or checking BNP level. Aggressive blood pressure control is recommended. Patient's overall prognosis is quite guarded. We will need to see how she responds to therapy. Will follow with you. History of Present Illness Attending Physician: Basim Mckeon MD History of Present Illness Asked by hospitalist to assist in evaluation management this patient mated with Covid pneumonia and hypoxemic respiratory failure. History is obtained from discussion with the patient as well as review the electronic medical record. The patient is a 56-year-old unvaccinated female without significant past medical history. She reportedly has had 10-day history of congestion and was prescribed prednisone and an antibiotic for sinusitis in the outpatient setting. Reportedly outpatient testing for Covid was positive. She continued to have worsening congestion and shortness of breath and was seen at her primary care provider's office where she was noted to be hypoxemic. She was directed to the emergency room and evaluated. She received Decadron remdesivir and nebulizers in the emergency room. She remained hypoxemic and noninvasive positive pressure ventilation the form of BiPAP was initiated. She was admitted to the floor. On my assessment this morning the patient is awake alert and conversant. She does not appear to be in any respiratory distress. She is breathing comfortably. She denies any chest pain palpitations or significant shortness of breath. Allergies Allergy/AdvReac Type Severity Reaction Status Date / Time gluten Allergy Severe celiac's Verified 07/02/21 20:44 disease wheat Allergy Severe celiac's Verified 07/02/21 20:44 diease adhesive Allergy Mild Rash Verified 07/02/21 20:44 Sulfa (Sulfonamide Allergy Unknown CHILDHOOD Verified 07/02/21 20:44 Antibiotics) - UNKNOWN Home Medications Medication Instructions Recorded Confirmed Type cetirizine 10 mg capsule (Allergy 10 mg PO QAM 06/16/19 07/02/21 History Relief (cetirizine)) montelukast 10 mg tablet 10 mg PO QAM 06/16/19 07/02/21 History calcium carbonate 500 mg calcium 1,000 mg PO QAM 03/25/20 07/02/21 History (1,250 mg) chewable tablet (Calcium 500) cyanocobalamin (vitamin B-12) 2,500 mcg PO QAM 03/25/20 07/02/21 History 2,500 mcg tablet fluticasone propionate 50 1 spray INTRANASAL QAM 03/25/20 07/02/21 History mcg/actuation nasal spray,suspension (Flonase Allergy Relief) hydrochlorothiazide 25 mg tablet 25 mg PO QAM 03/25/20 07/02/21 History escitalopram oxalate 5 mg tablet 5 mg PO DAILY #30 tab 07/25/20 07/02/21 Rx (Lexapro) albuterol sulfate 90 mcg/actuation 1 - 2 puff INHALATION Q6 PRN 07/02/21 07/02/21 History aerosol inhaler benzonatate 100 mg capsule 100 mg PO TID PRN 07/02/21 07/02/21 History (Leatha Mcpherson) chromium 1,000 mcg tablet 100 mcg PO DAILY 07/02/21 07/02/21 History glucosam 750 mg-chondroi 100 1 tab PO DAILY 07/02/21 07/02/21 History mg-hyalur 1.65 mg-CF borate 108 mg tablet ([facility]) loratadine 10 mg tablet (Claritin) 10 mg PO DAILY 07/02/21 07/02/21 History multivitamin 1 tab PO DAILY 07/02/21 07/02/21 History pantoprazole 40 mg tablet,delayed 40 mg PO DAILY 07/02/21 07/02/21 History release Patient History Medical History (Updated 07/03/21 @ 11:03 by Gualberto Patel MD) Anxiety Celiac disease eats gluten free HTN (hypertension) Hx of menorrhagia IBS (irritable bowel syndrome) Osteoarthritis Surgical History H/O sinus surgery History of colonoscopy History of dilatation and curettage History of wisdom tooth extraction S/P tubal ligation Status post hysteroscopic ablation of endometrium Family History Aunt Ovarian cancer maternal Breast cancer maternal Family history of diabetes mellitus Mother Breast cancer Other No family history of adverse response to anesthesia Social History Smoking Status: Never smoker Second Hand Exposure: No; Do You Dip or Chew Tobacco: No; Tobacco Cessation Education Requested by Patient: No Hx Alcohol Use: No Hx Substance Use: No Preferred Language: Spanish Communication Ability: Effective 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 No additions or deletions Physical Exam Constitutional: WD/WN, vitals as above Neck: trachea midline, no thyromegaly Respiratory: normal respiratory effort; no respiratory distress and no labored breathing Crackles bilaterally Cardiovascular: RRR, no murmur, no edema Gastrointestinal (Abdomen): normal bowel sounds, soft, nontender, no hepatosplenomegaly Musculoskeletal: Extremities: extremities normal to inspection Skin: no rashes, warm and dry Neurologic: Nonfocal exam Lymphatic: no cervical lymphadenopathy Results & Data Results & Data ([facility]) Vital Signs (Past 12 Hours) Vital Signs Temp Pulse Pulse Resp BP BP Pulse Ox 07/03/21 11:36 77 24 91 07/03/21 11:25 37.0 C 78 18 155/92 H 92 07/03/21 10:47 72 29 H 94 07/03/21 07:59 73 26 H 91 07/03/21 07:13 36.5 C 71 18 137/83 94 07/03/21 03:47 36.2 C L 66 19 120/70 92 07/03/21 03:08 65 22 90 07/03/21 02:30 69 92 07/03/21 02:00 64 99 07/03/21 01:30 64 95 07/03/21 01:00 67 145/83 H 96 Laboratory Results 07/03/21 07:24 07/03/21 07:24 CRP 23 Procalcitonin 0. 10 Troponin negative Diagnostic Findings Imaging studies were independently reviewed. Chest x-ray 07/02/21 was independently reviewed. It demonstrates patchy bibasilar airspace opacities without effusion or pneumothorax. PG Care Time/CCT Total # of Minutes Spent Total Time Spent with Patient: Total time spent is greater than 50% in coordination of care (as documented) at patient's floor/unit and/or counseling patient: Total Critical Care Time: 45 Coding Level of Care Code 79748 Inpt Consult Level 5 Diagnoses Acute hypoxemic respiratory failure J96.01 Pneumonia due to 2019 novel coronavirus U07.1; J12.82 Hypoxia R09.02 Time Spent (min) 45
--- NOTE | 2021-07-03 14:09 | Electrocardiogram Report ---
Test Reason : Blood Pressure : / mmHG Vent. Rate : 098 BPM Atrial Rate : 098 BPM P-R Int : 150 ms QRS Dur : 082 ms QT Int : 380 ms P-R-T Axes : 040 -29 068 degrees QTc Int : 485 ms Poor data quality, interpretation may be adversely affected Normal sinus rhythm Possible Left atrial enlargement Left ventricular hypertrophy with repolarization abnormality Cannot rule out Septal infarct , age undetermined Abnormal ECG When compared with ECG of 23-NOV-2008 09:19, Significant changes have occurred Confirmed by Jesús Fan ([id number]) on 07/03/2021 2:09:04 PM Referred By: REFERRED SELF Confirmed By:Jesús Fan
[2021-07-03] MEDS: POTASSIUM CHLORIDE 40 MEQ in SODIUM CHLORIDE 0.9% 1000ML 1,000 ML IV SCH (14:26)
[2021-07-03] MEDS ORDERED: FUROSEMIDE 20 MG in SYRINGE 0 ML IV ONE (14:46)
--- NOTE | 2021-07-03 14:48 | Hospitalist Progress Note ---
Date of Service July 03, 2021 Assessment & Plan (1) Acute hypoxemic respiratory failure: (2) Pneumonia due to 2019 novel coronavirus: Plan: 56-year-old lady with PMH significant for hypertension, celiac disease, NAFLD presented 07/02 to our ED with complaint of shortness of breathworsening secondary to recent diagnosis of Covid positive at primary care office. She is being managed for the following: #. Covid pneumonia #. Acute hypoxemic respiratory failure. 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 Patient requiring very high flow oxygen. Continue oxygen [high flow and CPAP], wean as tolerated, prone position as able, continue dexamethasone, continue with flutter valve and incentive spirometry. Continue heparin. Dexamethasone 07/02 Remdesivir 1 dose on 07/02, discontinued 07/03 Baricitinib 07/03 Patient updated about the plan of care and expectation/prognosis associated with Covid treatment. Pulmonology consulted: Recommends discontinuing remdesivir and patient is candidate for baricitinib and hence is started on it. I/Os so far +1200 mL, use as needed Lasix to keep her on long goods drier side. Follow-up BNP level. #. Chronic medical conditions: GERD/hypertension Resume home meds DVT prophylaxis Heparin subcu Full code Patient's requesting updates from providers. Mr. Earle Burgos, contact number [phone]. Admission and Anticipated Discharge Date Admission Date: July 02, 2021 Subjective Patient was lying in bed, NAD, on 40 L nasal cannula oxygen, denies any acute events overnight. Patient reports decreased appetite and loose stool and normal taste sensation. Patient denies any fever/chills/chest pain/feeling of heart racing/other review of symptoms. Physical Exam Physical Exam: GENERAL: Alert and oriented x3. NAD, on 40 L 90% HEENT: No pallor, no icterus. Pupils equal, round and reactive to light. Oral mucosa moist. NECK: No JVD, no neck masses. HEART: S1 and S2 heard. Regular rate and rhythm. No murmur, no gallop. RESPIRATORY SYSTEM: Normal AP diameter. No accessory muscle use. No wheezing, bibasilar crackles. Decreased breath sounds. ABDOMEN: Soft, bowel sounds present, nontender, no distention. CENTRAL NERVOUS SYSTEM: Alert and oriented x3. No facial droop. Speech is clear. Obeys simple commands. Moves extremities. EXTREMITIES: No edema, no erythema seen. Results & Data Results & Data ([facility]) Vital Signs (Past 12 Hours) Vital Signs Temp Pulse Pulse Resp BP Pulse Ox 07/03/21 11:36 77 24 91 07/03/21 11:25 37.0 C 78 18 155/92 H 92 07/03/21 10:47 72 29 H 94 07/03/21 07:59 73 26 H 91 07/03/21 07:13 36.5 C 71 18 137/83 94 07/03/21 03:47 36.2 C L 66 19 120/70 92 07/03/21 03:08 65 22 90
[2021-07-03] MEDS ORDERED: FUROSEMIDE 40 MG/4 ML VIAL IV ONE (15:00)
--- NOTE | 2021-07-03 16:02 | Ultrasound Report ---
BILATERAL LOWER EXTREMITY VENOUS DOPPLER HISTORY: Acute pain and swelling of the lower legs dvt eval COMPARISON STUDY: None. FINDINGS: There is normal compressibility, flow, and augmentation within the bilateral lower extremit y deep venous systems. IMPRESSION: No DVT within the right or left lower extremity. ACT 112: Negative or not required by law. Electronically signed by: Joseph Nance M.D. 07/03/2021 4:01 PM
[2021-07-03] MEDS ORDERED: SODIUM CHLORIDE 0.9% 10ML FLUSH IV SCH (20:00)
[2021-07-03] MEDS ORDERED: REMDESIVIR 100 MG in SODIUM CHLORIDE 0.9% 230 ML IV SCH (20:00)
[2021-07-04] MEDS: HEPARIN SOD 5,000 UNIT/0.5 ML VIAL SQ SCH ×3 (03:55→19:14)
[2021-07-04 05:52] LABS: Hematocrit (blood only) 36.3 % (37-47); Hemoglobin 12.2 g/dL (12.0-16.0); Mean Corpuscular Hemoglobin 31.1 pg (25-34); Mean Corpuscular Hgb Conc 33.6 g/dL (32-36); Mean Corpuscular Volume 92.6 fL (80-100); Mean Platelet Volume 9.9 fL (7.4-10.4); Platelet Count 352 K/uL (130-400); RDW Coefficient of Variation 13.1 % (11.5-14.5); Red Blood Count 3.92 M/uL (4.2-5.4); White Blood Count 16.73 K/uL (4.8-10.8)
[2021-07-04 06:08] LABS: BUN Creatinine Ratio 37.5 (10-20); Calcium 8.2 mg/dl (8.5-10.1); Creatinine Clr Calc Pharmacy 72.8 ml/min; Est GFR (African American) 87.5 ml/min; Est GFR (Non-African American) 75.5 ml/min; Potassium 3.7 mmol/L (3.5-5.1)
[2021-07-04] MEDS: POTASSIUM CHLORIDE 40 MEQ in SODIUM CHLORIDE 0.9% 1000ML 1,000 ML IV SCH ×2 (08:26→08:54)
[2021-07-04] MEDS: LORATADINE 10 MG TAB PO SCH (08:29)
[2021-07-04] MEDS: MULTIVITAMIN TAB PO SCH (08:29)
[2021-07-04] MEDS: CYANOCOBALAMIN (VITAMIN B-12) 2,500 MCG TAB.SUBL SL SCH (08:29)
[2021-07-04] MEDS: PANTOprazole 40 MG TAB PO SCH (08:30)
[2021-07-04] MEDS: ESCITALOPRAM OXALATE 10 MG TAB PO SCH (08:30)
[2021-07-04] MEDS: MONTELUKAST SODIUM 10 MG TABLET PO SCH (08:30)
[2021-07-04] MEDS: dexAMETHasone 6 MG in SYRINGE 0 ML IV SCH (08:31)
[2021-07-04] MEDS: FLUTICASONE PROPIONATE NA SPR 16 GM BTL SCH (08:31)
[2021-07-04] MEDS: BARICITINIB 2 MG TAB PO SCH (08:53)
[2021-07-04] MEDS ORDERED: GLUCOSE 40% GEL 15 GM TUBE PO PRN (09:56)
[2021-07-04] MEDS ORDERED: PHARMACY GLYCEMIC MGMT CONSULT PRN (09:56)
[2021-07-04] MEDS ORDERED: GLUCOSE 10 TABS/TUBE PO PRN (09:56)
[2021-07-04] MEDS ORDERED: DEXTROSE 50% 50 ML SYRINGE IV PRN (09:56)
[2021-07-04] MEDS ORDERED: GLUCAGON FOR INJ 1 MG VIAL SQ PRN (09:56)
[2021-07-04] MEDS ORDERED: CARBOHYDRATES FOR HYPOGLYCEMIA PO PRN (09:56)
[2021-07-04] MEDS ORDERED: INSULIN GLARGINE SOLOSTAR 100 UNITS/ML 3 ML PEN SC SCH (10:00)
--- NOTE | 2021-07-04 10:37 | Pharmacy Report ---
Pharmacy Glycemic Short Note 2 - Date of Service July 04, 2021 - Glycemic Short BSG Results (Last 24 hours): 07/04/21 07/04/21 05:23 10:24 Glucose 140 H POC Glucose 149 H OUTPATIENT ANTIDIABETIC REGIMEN: * None * HbA1c 6.8% on 07/02/21 ASSESSMENT: * 56 yo F with new diagnosis of diabetes admitted with COVID-19 and on steroids * Pharmacy consulted on day 3 of admission. AM random BSG's have ranged 140-176 mg/dL over the last 3 days * Will start NPH to mimic PK of dexamethasone, but will not be aggressive as AM fasting this AM is in goal range without basal insulin (although at the upper end of goal) * Will start Novolog ACHS between weight-based moderate to severe stress estimate. Will adjust based on trend in BSG's PLAN FOR INPATIENT GLYCEMIC CONTROL: * Basal insulin * NPH 20 units SC x1 now * Bolus insulin * NovoLog per scale ACHS or Q6hrs while NPO * Goal Range: Low 110 mg/dL - High 140 mg/dL * Correction Factor: 25 mg/dL/unit * Nutritional / Prandial insulin per carb ratio of 1 unit per 8 grams CHO consumed PLAN FOR DISCHARGE: * coding educator consulted on 07/04 - will review recommendations and also follow trend in BSG's as an inpatient (although steroids as an inpatient may complicate selecting an appropriate outpatient regimen)
[2021-07-04] MEDS ORDERED: INSULIN HUMAN NPH SC ONE (10:45)
--- NOTE | 2021-07-04 10:59 | Pulmonology Progress Note ---
Date of Service July 04, 2021 Assessment & Plan (1) Acute hypoxemic respiratory failure: (2) Pneumonia due to 2019 novel coronavirus: (3) Hypoxia: Plan: Impression: 56-year-old female not vaccinated for Covid presenting with acute Covid pneumonia and hypoxemic respiratory failure. The patient is outside the window for remdesivir. Her CRP is elevated and she does qualify for baricitinib which was started 07/03. Recommendations: 1. Covid pneumonia: Continue dexamethasone 6 mg daily and with baricitinib and follow clinically. 2. Hypoxemic respiratory failure: Patient reports that she has difficulty self proning due to claustrophobia. She is okay to pursue lateral decubitus positioning and I assisted in getting her to the left lateral decubitus down position. This improved her oxygen saturations from 89% to 94%. I think positional therapy may be helpful. Transition to noninvasive positive pressure ventilation would be appropriate if the patient fails high flow. She is slightly more tachypneic today and is certainly at risk of respiratory failure requiring intubation mechanical ventilation although the patient states she is doing okay currently. 3. May consider empiric diuresis or checking BNP level. Aggressive blood pressure control is recommended. 4. Duplex ultrasound of the lower extremities was negative. Will obtain CT angiogram to exclude PE although clinical suspicion is moderate to low. Patient's overall prognosis is quite guarded. We will need to see how she responds to therapy. We will continue to follow closely Admission and Anticipated Discharge Date Admission Date: July 02, 2021 Subjective Patient feels that her breathing is about the same. She was transitioned to high flow and has been stable overnight. She is not coughing or expectorating phlegm. She is not complaining of any chest pain. She was initiated on baricitinib yesterday. Review of Systems Review of Systems: Unchanged from prior Physical Exam Constitutional: WD/WN, vitals as above Neck: trachea midline, no thyromegaly Respiratory: Slightly more tachypneic today. Still appears comfortable with work of breathing. Transition to decubitus position with marked improvement in oxygen saturations Cardiovascular: RRR, no murmur, no edema Gastrointestinal (Abdomen): normal bowel sounds, soft, nontender, no hepatosplenomegaly Musculoskeletal: Extremities: extremities normal to inspection Skin: no rashes, warm and dry Lymphatic: no cervical lymphadenopathy Results & Data Results & Data ([facility]) Vital Signs (Past 12 Hours) Vital Signs Temp Pulse Pulse Resp BP BP Pulse Ox 07/04/21 10:40 36.8 C 63 18 173/98 H 98 07/04/21 08:34 36.9 C 69 24 185/85 H 95 07/04/21 07:18 78 24 95 07/04/21 03:41 36.4 C 68 20 138/92 89 L 07/04/21 03:18 79 24 93 07/03/21 23:46 36.4 C 75 20 132/84 89 L Laboratory Results 07/04/21 05:23 07/04/21 05:23 Diagnostic Findings Duplex ultrasound of the lower extremities negative PG Care Time/CCT Total # of Minutes Spent Total Time Spent with Patient: Total time spent is greater than 50% in coordination of care (as documented) at patient's floor/unit and/or counseling patient: Coding Level of Care Code 49042 Subseq Hosp Care Lvl 3 Diagnoses Acute hypoxemic respiratory failure J96.01 Pneumonia due to 2019 novel coronavirus U07.1; J12.82 Hypoxia R09.02
[2021-07-04] MEDS ORDERED: OPTIRAY 320 125ml IV ONE (12:13)
--- NOTE | 2021-07-04 13:02 | CT Scan Report ---
CT ANGIOGRAM OF THE CHEST CLINICAL HISTORY: Dyspnea. Covid pneumonia. COMPARISON STUDY: Chest x-ray dated 07/02/2021. TECHNIQUE: Following the IV administration of 117 cc of Optiray 320, CT angiogram of the chest was pe rformed from the upper abdomen to the thoracic inlet utilizing the pulmonary embolus protocol. Images are reviewed in the axial, sagittal, and coronal planes. 3-D MIPS images are created and assessed. I V contrast was administered without complication. A dose lowering technique was utilized adhering to the principles of ALARA. CT DOSE: 296.22 mGy.cm FINDINGS: Thyroid: Imaged portions of the thyroid gland are normal in size and attenuation. Thoracic aorta: The thoracic aorta is normal in caliber and demonstrates standard 3-vessel arch anato my. No dissection is seen. Pulmonary vasculature: The pulmonary trunk is normal in caliber. There are no filling defects identif ied in main, lobar, or segmental pulmonary branches to suggest pulmonary embolus. Heart: The heart is normal in size and without pericardial effusion. Lungs and pleural spaces: There is multifocal airspace consolidation seen throughout both lungs. No p leural effusion is identified. The trachea and central airways are clear. Mediastinum: Mildly enlarged mediastinal nodes measure up to 12 mm in short axis. Danisha: Mildly enlarged hilar nodes measure up to 10 mm short axis. Axillae: There is no axillary lymphadenopathy. Upper abdomen: There is a small hiatal hernia. Partially visualized upper abdominal viscera is otherw ise within normal limits. Skeletal structures: No lytic or blastic bony lesions are seen. IMPRESSION: 1. There is no evidence of pulmonary embolus in the main, lobar, or segmental pulmonary arteries. 2. Multifocal airspace consolidation is consistent with the reported history of a viral pneumonia. Ra diographic follow-up to resolution is recommended. 3. Enlarged mediastinal and hilar nodes are likely reactive. ACT 112: Negative or not required by law. Electronically signed by: Darell Guillen M.D. 07/04/2021 1:00 PM
[2021-07-04] MEDS: INSULIN ASPART 100 UNITS/ML 3 ML PEN SC SCH ×3 (14:13→19:14)
[2021-07-04] MEDS ORDERED: FUROSEMIDE 20 MG in SYRINGE 0 ML IV ONE (15:35)
--- NOTE | 2021-07-04 15:37 | Hospitalist Progress Note ---
Date of Service July 04, 2021 Assessment & Plan (1) Acute hypoxemic respiratory failure: Plan: 56-year-old lady with PMH significant for hypertension, celiac disease, NAFLD presented 07/02 to our ED with complaint of shortness of breathworsening secondary to recent diagnosis of Covid positive at primary care office. She is being managed for the following: #. Covid pneumonia #. Acute hypoxemic respiratory failure. 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 Patient requiring very high flow oxygen. Continue oxygen [high flow and CPAP], wean as tolerated, prone position as able, continue dexamethasone, continue with flutter valve and incentive spirometry. Continue heparin. Dexamethasone 07/02 Remdesivir 1 dose on 07/02, discontinued 07/03 Baricitinib 07/03 Patient updated about the plan of care and expectation/prognosis associated with Covid treatment. Pulmonology consulted: Recommends discontinuing remdesivir and patient is candidate for baricitinib and hence is started on it. I/Os so far +98 mL, use as needed Lasix to keep her on long goods drier side. Pro-BNP level 520, pro-Milad negative. Encouraged to use flutter valve and incentive spirometry while awake. #. Chronic medical conditions: GERD/hypertension Resume home meds DVT prophylaxis Heparin subcu Full code Patient's requesting updates from providers. Mr. Earle Burgos, contact number [phone]. Admission and Anticipated Discharge Date Admission Date: July 02, 2021 Subjective Patient was lying in bed, on 55 L or 90% oxygen, saturating greater than 90%, NAD, no new acute events overnight. Patient denies any chest pain/headache/dizziness/other review of symptoms. Patient is eating and moving bowels okay. Patient looks more lethargic than yesterday, I did not see incentive spirometer at the bedside, will put in orders again for incentive spirometer. Patient advised to continue with flutter valve when awake and as instructed. Physical Exam Physical Exam: GENERAL: Alert and oriented x3. NAD, on 55 L 90% HEENT: No pallor, no icterus. Pupils equal, round and reactive to light. Oral mucosa moist. NECK: No JVD, no neck masses. HEART: S1 and S2 heard. Regular rate and rhythm. No murmur, no gallop. RESPIRATORY SYSTEM: Normal AP diameter. No accessory muscle use. No wheezing, bibasilar crackles. Decreased breath sounds. ABDOMEN: Soft, bowel sounds present, nontender, no distention. CENTRAL NERVOUS SYSTEM: Alert and oriented x3. No facial droop. Speech is clear. Obeys simple commands. Moves extremities. EXTREMITIES: No edema, no erythema seen. Results & Data Results & Data ([facility]) Vital Signs (Past 12 Hours) Vital Signs Temp Pulse Resp BP Pulse Ox 07/04/21 10:55 80 18 95 07/04/21 10:40 36.8 C 63 18 173/98 H 98 07/04/21 08:34 36.9 C 69 24 185/85 H 95 07/04/21 07:18 78 24 95 07/04/21 03:41 36.4 C 68 20 138/92 89 L
[2021-07-04] MEDS ORDERED: FUROSEMIDE 40 MG/4 ML VIAL IV ONE (15:45)
[2021-07-05 06:33] LABS: Hematocrit (blood only) 39.7 % (37-47); Hemoglobin 13.1 g/dL (12.0-16.0); Mean Corpuscular Hemoglobin 31.1 pg (25-34); Mean Corpuscular Volume 94.3 fL (80-100); Mean Platelet Volume 10.3 fL (7.4-10.4); Platelet Count 440 K/uL (130-400); RDW Coefficient of Variation 13.2 % (11.5-14.5); RDW Standard Deviation 45.5 fL (36.4-46.3); Red Blood Count 4.21 M/uL (4.2-5.4); White Blood Count 19.46 K/uL (4.8-10.8)
[2021-07-05] MEDS: HEPARIN SOD 5,000 UNIT/0.5 ML VIAL SQ SCH ×3 (06:57→22:19)
[2021-07-05 07:06] LABS: BUN Creatinine Ratio 44.9 (10-20); Calcium 8.7 mg/dl (8.5-10.1); Creatinine Clr Calc Pharmacy 76.4 ml/min; Est GFR (African American) 97.1 ml/min; Est GFR (Non-African American) 83.8 ml/min; Potassium 3.9 mmol/L (3.5-5.1)
[2021-07-05] MEDS: INSULIN ASPART 100 UNITS/ML 3 ML PEN SC SCH ×4 (08:56→20:19)
[2021-07-05] MEDS: POTASSIUM CHLORIDE 40 MEQ in SODIUM CHLORIDE 0.9% 1000ML 1,000 ML IV SCH (08:56)
[2021-07-05] MEDS: BARICITINIB 2 MG TAB PO SCH (08:56)
[2021-07-05] MEDS: dexAMETHasone 6 MG in SYRINGE 0 ML IV SCH (08:57)
[2021-07-05] MEDS: MULTIVITAMIN TAB PO SCH (08:57)
[2021-07-05] MEDS: PANTOprazole 40 MG TAB PO SCH (08:57)
[2021-07-05] MEDS: ESCITALOPRAM OXALATE 10 MG TAB PO SCH (08:58)
[2021-07-05] MEDS: MONTELUKAST SODIUM 10 MG TABLET PO SCH (08:58)
[2021-07-05] MEDS: CYANOCOBALAMIN (VITAMIN B-12) 2,500 MCG TAB.SUBL SL SCH (08:58)
[2021-07-05] MEDS: LORATADINE 10 MG TAB PO SCH (08:58)
[2021-07-05] MEDS: FLUTICASONE PROPIONATE NA SPR 16 GM BTL SCH (08:58)
[2021-07-05] MEDS ORDERED: INSULIN HUMAN NPH SC ONE (09:00)
[2021-07-05] MEDS: oxyCODONE HCL IR 5 MG TAB (IMMEDIATE RELEASE) PO PRN ×2 (09:03→23:25)
[2021-07-05] MEDS: ACETAMINOPHEN 325 MG TAB PO PRN (09:04)
--- NOTE | 2021-07-05 12:11 | Pharmacy Report ---
Pharmacy Glycemic Short Note 2 - Date of Service July 05, 2021 - Glycemic Short BSG Results (Last 24 hours): 07/04/21 07/04/21 07/04/21 12:50 16:24 19:11 Glucose POC Glucose 146 H 138 H 147 H 07/05/21 07/05/21 05:26 07:11 Glucose 86 POC Glucose 92 OUTPATIENT ANTIDIABETIC REGIMEN: * None * HbA1c 6.8% on 07/02/21 ASSESSMENT: 07/05 * Stressors stable * AM fasting BSG below goal range - will significantly reduce NPH * Post-prandial BSG's yesterday good - no change to Novolog 07/04 * 56 yo F with new diagnosis of diabetes admitted with COVID-19 and on steroids * Pharmacy consulted on day 3 of admission. AM random BSG's have ranged 140-176 mg/dL over the last 3 days * Will start NPH to mimic PK of dexamethasone, but will not be aggressive as AM fasting this AM is in goal range without basal insulin (although at the upper end of goal) * Will start Novolog ACHS between weight-based moderate to severe stress estimate. Will adjust based on trend in BSG's PLAN FOR INPATIENT GLYCEMIC CONTROL: * Basal insulin * NPH 10 units SC x1 now * Bolus insulin * NovoLog per scale ACHS or Q6hrs while NPO * Goal Range: Low 110 mg/dL - High 140 mg/dL * Correction Factor: 25 mg/dL/unit * Nutritional / Prandial insulin per carb ratio of 1 unit per 8 grams CHO consumed PLAN FOR DISCHARGE: * db2 dba consulted on 07/04 - will review recommendations and also follow trend in BSG's as an inpatient (although steroids as an inpatient may complicate selecting an appropriate outpatient regimen)
--- NOTE | 2021-07-05 13:00 | Pulmonology Progress Note ---
Date of Service July 05, 2021 Assessment & Plan (1) Acute hypoxemic respiratory failure: (2) Pneumonia due to 2019 novel coronavirus: (3) Hypoxia: Plan: Impression: 56-year-old female not vaccinated for Covid presenting with acute Covid pneumonia and hypoxemic respiratory failure. She is stable to slightly better using positional therapy, high flow oxygen, and dexamethasone and baricitinib. Recommendations: 1. Covid pneumonia: Continue dexamethasone 6 mg daily and with baricitinib and follow clinically. 2. Hypoxemic respiratory failure: Positional therapy appears to be effective currently. Should we fail to meet oxygenation goals, next up would be to place her back on noninvasive positive pressure ventilation. I am encouraged that she is stable over the last 24 hours although she is certainly not out of the window for clinical deterioration and need for potential mechanical ventilation. This was discussed with the patient in detail. 3. No evidence of PE on CT angiogram. Continue DVT prophylaxis. We will continue to follow closely. Please let us know if her condition deteriorates. Admission and Anticipated Discharge Date Admission Date: July 02, 2021 Subjective Patient seen and examined. EMR reviewed. She is feeling a little better today. She continues to require high flow oxygen. She becomes dyspneic when eating and has to eat quite slowly. She has been trying to stay on her sides and notes that things are slightly better. She continues to have dyspnea with conversation. She denies chest pain palpitations. No significant lower extremity edema Review of Systems Review of Systems: Negative except as noted above Physical Exam Constitutional: WD/WN, vitals as above Neck: trachea midline, no thyromegaly Cardiovascular: RRR, no murmur, no edema Gastrointestinal (Abdomen): normal bowel sounds, soft, nontender, no hepatosplenomegaly Musculoskeletal: Extremities: extremities normal to inspection Skin: no rashes, warm and dry Lymphatic: no cervical lymphadenopathy Results & Data Results & Data ([facility]) Vital Signs (Past 12 Hours) Vital Signs Temp Pulse Pulse Resp BP BP Pulse Ox 07/05/21 12:21 37.0 C 82 23 137/81 91 07/05/21 09:39 73 22 93 07/05/21 07:56 37.0 C 79 20 159/80 H 97 07/05/21 06:06 75 24 96 07/05/21 03:50 36.4 C L 66 16 154/84 H 97 07/05/21 02:42 80 24 95 07/05/21 02:39 64 22 90 07/05/21 01:45 67 Laboratory Results 07/05/21 05:26 07/05/21 05:[address] ANGIOGRAM OF THE CHEST CLINICAL HISTORY: Dyspnea. Covid pneumonia. COMPARISON STUDY: Chest x-ray dated 07/02/2021. TECHNIQUE: Following the IV administration of 117 cc of Optiray 320, CT angiogram of the chest was performed from the upper abdomen to the thoracic i nlet utilizing the pulmonary embolus protocol. Images are reviewed in the axial, sagittal, and coronal planes. 3-D MIPS images are created and assessed. IV contrast was administered without complication. A dose lowering technique was utilized adhering to the principles of ALARA. CT DOSE: 296.22 mGy.cm FINDINGS: Thyroid: Imaged portions of the thyroid gland are normal in size and attenuation. Thoracic aorta: The thoracic aorta is normal in caliber and demonstrates standard 3-vessel arch anatomy. No dissection is seen. Pulmonary vasculature: The pulmonary trunk is normal in caliber. There are no filling defects identified in main, lobar, or segmental pulmonary branches to suggest pulmonary embolus. Heart: The heart is normal in size and without pericardial effusion. Lungs and pleural spaces: There is multifocal airspace consolidation seen throughout both lungs. No pleural effusion is identified. The trachea and central airways are clear. Mediastinum: Mildly enlarged mediastinal nodes measure up to 12 mm in short axis. Danisha: Mildly enlarged hilar nodes measure up to 10 mm short axis. Axillae: There is no axillary lymphadenopathy. Upper abdomen: There is a small hiatal hernia. Partially visualized upper abdominal viscera is otherwise within normal limits. Skeletal structures: No lytic or blastic bony lesions are seen. IMPRESSION: 1. There is no evidence of pulmonary embolus in the main, lobar, or segmental pulmonary arteries. 2. Multifocal airspace consolidation is consistent with the reported history of a viral pneumonia. Radiographic follow-up to resolution is recommended. 3. Enlarged mediastinal and hilar nodes are likely reactive. PG Care Time/CCT Total # of Minutes Spent Total Time Spent with Patient: Total time spent is greater than 50% in coordinat ion of care (as documented) at patient's floor/unit and/or counseling patient: Coding Level of Care Code 87158 Subseq Hosp Care Lvl 2 Diagnoses Acute hypoxemic respiratory failure J96.01 Pneumonia due to 2019 novel coronavirus U07.1; J12.82 Hypoxia R09.02
--- NOTE | 2021-07-05 16:26 | Hospitalist Progress Note ---
Date of Service July 05, 2021 Assessment & Plan (1) Acute hypoxemic respiratory failure: Plan: 56-year-old lady with PMH significant for hypertension, celiac disease, NAFLD presented 07/02 to our ED with complaint of shortness of breathworsening secondary to recent diagnosis of Covid positive at primary care office. She is being managed for the following: #. Covid pneumonia #. Acute hypoxemic respiratory failure. 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 Patient requiring very high flow oxygen. Continue oxygen [high flow and CPAP], wean as tolerated, prone position as able, continue dexamethasone, continue with flutter valve and incentive spirometry. Continue heparin. Dexamethasone 07/02 Remdesivir 1 dose on 07/02, discontinued 07/03 Baricitinib 07/03 Patient updated about the plan of care and expectation/prognosis associated with Covid treatment. Pulmonology consulted: Recommends discontinuing remdesivir and patient is candidate for baricitinib and hence is started on it. I/Os so far +98 mL, use as needed Lasix to keep her on snuff drier side. Pro-BNP level 520, pro-Milad negative. Negative for pulmonary embolism Encouraged to use flutter valve and incentive spirometry while awake. Minimally improved as of today, if the condition gets worse may need intubation and mechanical ventilation #. Chronic medical conditions: GERD/hypertension Resume home meds DVT prophylaxis Heparin subcu Full code Patient's requesting updates from providers. Mr. Earle Burgos, contact number [phone]. Admission and Anticipated Discharge Date Admission Date: July 02, 2021 Subjective 07/05/2021 The patient was seen and examined in telemetry unit in the Covid room She has been feeling a little bit better today Still requiring 50 L flow rate with 80% FiO2 to maintain saturation Has cough but no chest pain and/or palpitation Review of Systems Review of Systems: All systems reviewed and are unremarkable except as noted below Respiratory: Mild to moderate respiratory distress at rest Physical Exam Physical Exam: Lying in bed comfortably Constitutional: well developed, well nourished, + ill appearing and average body habitus Eyes: PERRL, conjunctivae normal, anicteric sclerae ENMT: external ear and nose normal, oropharynx normal Neck: trachea midline, no thyromegaly Respiratory: + respiratory distress and + cough Auscultation: + diminished lung sounds and + crackles (At the bases) Cardiovascular: Rate/Rhythm: regular rate and regular rhythm; not tachycardic Heart Sounds: normal S1 and normal S2; no murmur Extremities: no edema Gastrointestinal (Abdomen): Inspection/Auscultation: normal bowel sounds; abdomen not distended Percussion/Palpation: abdomen soft; abdomen nontender Musculoskeletal: No acute arthritis in any joint Neurologic: Awake and oriented x3. No focal sensory or no motor deficit appreciated Results & Data Results & Data ([facility]) Vital Signs (Past 12 Hours) Vital Signs Temp Pulse Pulse Resp BP BP Pulse Ox 07/05/21 15:25 37.0 C 67 18 155/76 H 94 07/05/21 14:35 22 92 07/05/21 12: 37.0 C 82 23 137/81 91 07/05/21 09:39 73 22 93 07/05/21 07:56 37.0 C 79 20 159/80 H 97 07/05/21 06:06 75 24 96 Laboratory Results Short CBC 07/05/21 Range/Units 05:26 WBC 19.46 H (4.8-10.8) K/uL Hgb 13.1 (12.0-16.0) g/dL Hct 39.7 (37-47) % Plt Count 440 H (130-400) K/uL BMP 07/05/21 05:26 Sodium 142 Potassium 3.9 Chloride 107 Carbon Dioxide 30 BUN 35 H Creatinine 0.78 Glucose 86 Calcium 8.7 Medications Administered Current Inpatient Medications Acetaminophen (Acetaminophen 325 Mg Tab) 650 mg PO Q4H PRN PRN Reason: Pain or Fever Stop: 08/01/21 21:59 Last Admin: 07/05/21 09:04 Dose: 650 mg Documented by: Baricitinib (Baricitinib 2 Mg Tab) 4 mg PO DAILY NAKIA Stop: 07/17/21 08:59 Last Admin: 07/05/21 08:56 Dose: 4 mg Documented by: Cyanocobalamin (Cyanocobalamin (Vitamin B-12) 2,500 Mcg Tab.Subl) 2,500 mcg SL QAM NAKIA Stop: 08/02/21 08:59 Last Admin: 07/05/21 08:58 Dose: 2,500 mcg Documented by: Dextrose (Dextrose 50% 50 Ml Syringe) 25 - 50 ml IV UD PRN; Protocol PRN Reason: Hypoglycemia Protocol Stop: 08/03/21 09:55 Escitalopram Oxalate (Escitalopram Oxalate 10 Mg Tab) 5 mg PO DAILY NAKIA Stop: 08/02/21 08:59 Last Admin: 07/05/21 08:58 Dose: 5 mg Documented by: Fluticasone Propionate (Fluticasone Propionate Na Spr 16 Gm Btl) 1 sprays NA QAM NAKIA Stop: 08/02/21 08:59 Last Admin: 07/05/21 08:58 Dose: 1 sprays Documented by: Glucagon (Glucagon For Inj 1 Mg Vial) 1 mg SQ UD PRN; Protocol PRN Reason: Hypoglycemia Protocol Stop: 08/03/21 09:55 Glucose (Glucose 10 Tabs/Tube) 4 - 8 tabs PO UD PRN; Protocol PRN Reason: Hypoglycemia Protocol Stop: 08/03/21 09:55 Glucose (Glucose 40% Gel 15 Gm Tube) 15 - 30 gm PO UD PRN; Protocol PRN Reason: Hypoglycemia Protocol Stop: 08/03/21 09:55 Heparin Sodium (Porcine) (Heparin Sod 5,000 Unit/0.5 Ml Vial) 5,000 units SQ Q8 NAKIA Stop: 08/01/21 21:59 Last Admin: 07/05/21 12:27 Dose: 5,000 units Documented by: Dexamethasone 6 mg/ Syringe 1.5 mls @ 1 mls/min IV DAILY NAKIA Stop: 07/12/21 16:29 Last Admin: 07/05/21 08:57 Dose: 1 mls/min Documented by: Promethazine HCl 12.5 mg/ (Sodium Chloride) 50.5 mls @ 202 mls/hr IV Q6H PRN PRN Reason: Nausea And Vomiting Stop: 08/01/21 21:59 Insulin Aspart (Insulin Aspart 100 Units/Ml 3 Ml Pen) 0 units SC ACHS NAKIA; Protocol Stop: 08/03/21 11:29 Last Admin: 07/05/21 12:25 Dose: Not Given Documented by: Ipratropium [place] (Ipratropium [place] Neb Soln 0.02% 2.5 Ml Vial) 0.5 mg INH Q4H PRN PRN Reason: sob/wheezing Stop: 08/01/21 21:59 Levalbuterol HCl (Levalbuterol 1.25mg/0.5ml Neb) 1.25 mg INH Q4H PRN PRN Reason: sob/wheezing Stop: 08/01/21 21:59 Loratadine (Loratadine 10 Mg Tab) 10 mg PO DAILY NAKIA Stop: 08/02/21 08:59 Last Admin: 07/05/21 08:58 Dose: 10 mg Documented by: Miscellaneous (Carbohydrates For Hypoglycemia ) 15 - 30 gm PO UD PRN PRN Reason: Hypoglycemia Protocol Stop: 08/03/21 09:55 Miscellaneous Information (Pharmacy Glycemic Mgmt Consult) 1 ea N/A UD PRN; Protocol PRN Reason: Consult Stop: 08/03/21 09:55 Montelukast Sodium (Montelukast Sodium 10 Mg Tablet) 10 mg PO QAM NAKIA Stop: 08/02/21 08:59 Last Admin: 07/05/21 08:58 Dose: 10 mg Documented by: Multivitamins (Multivitamin Tab) 1 tab PO DAILY NAKIA Stop: 08/02/21 08:59 Last Admin: 07/05/21 08:57 Dose: 1 tab Documented by: Oxycodone HCl (Oxycodone Hcl Ir 5 Mg Tab (Immediate Release)) 5 mg PO Q4H PRN PRN Reason: Pain Stop: 07/16/21 21:59 Last Admin: 07/05/21 09:03 Dose: 5 mg Documented by: Pantoprazole Sodium (Pantoprazole 40 Mg Tab) 40 mg PO DAILY NAKIA Stop: 08/02/21 08:59 Last Admin: 07/05/21 08:57 Dose: 40 mg Documented by:
[2021-07-06] MEDS: HEPARIN SOD 5,000 UNIT/0.5 ML VIAL SQ SCH ×3 (06:07→22:28)
[2021-07-06 06:11] LABS: Basophils # (auto) 0.02 K/uL (0-0.2); Basophils % (auto) 0.1 %; Eosinophils # (auto) 0.02 K/uL (0-0.5); Eosinophils % (auto) 0.1 %; Hematocrit (blood only) 39.3 % (37-47); Hemoglobin 13.1 g/dL (12.0-16.0); Immature Granulocytes % (auto) 1.5 %; Lymphocytes # (auto) 0.75 K/uL (1.2-3.4); Lymphocytes % (auto) 3.7 %; Mean Corpuscular Hemoglobin 31.2 pg (25-34); Mean Corpuscular Hgb Conc 33.3 g/dL (32-36); Mean Corpuscular Volume 93.6 fL (80-100); Mean Platelet Volume 10.2 fL (7.4-10.4); Monocytes # (auto) 0.81 K/uL (0.11-0.59); Neutrophils # (auto) 18.26 K/uL (1.4-6.5); Neutrophils % (auto) 90.6 %; Platelet Count 465 K/uL (130-400); RDW Coefficient of Variation 12.5 % (11.5-14.5); RDW Standard Deviation 42.6 fL (36.4-46.3); White Blood Count 20.16 K/uL (4.8-10.8)
[2021-07-06 06:37] LABS: BUN Creatinine Ratio 33.7 (10-20); Calcium 8.9 mg/dl (8.5-10.1); Creatinine Clr Calc Pharmacy 75.6 ml/min; Est GFR (African American) 95.6 ml/min; Est GFR (Non-African American) 82.5 ml/min; Magnesium 2.4 mg/dl (1.8-2.4); Potassium 4.1 mmol/L (3.5-5.1)
[2021-07-06 06:38] LABS: C Reactive Protein 11.1 mg/dl (0-0.29); Phosphorus 2.9 mg/dl (2.5-4.9)
[2021-07-06] MEDS: oxyCODONE HCL IR 5 MG TAB (IMMEDIATE RELEASE) PO PRN ×2 (08:20→20:23)
[2021-07-06] MEDS: ACETAMINOPHEN 325 MG TAB PO PRN (08:21)
[2021-07-06] MEDS: LORATADINE 10 MG TAB PO SCH (08:21)
[2021-07-06] MEDS: ESCITALOPRAM OXALATE 10 MG TAB PO SCH (08:21)
[2021-07-06] MEDS: MONTELUKAST SODIUM 10 MG TABLET PO SCH (08:21)
[2021-07-06] MEDS: PANTOprazole 40 MG TAB PO SCH (08:21)
[2021-07-06] MEDS: MULTIVITAMIN TAB PO SCH (08:21)
[2021-07-06] MEDS: CYANOCOBALAMIN (VITAMIN B-12) 2,500 MCG TAB.SUBL SL SCH (08:21)
[2021-07-06] MEDS: dexAMETHasone 6 MG in SYRINGE 0 ML IV SCH (08:22)
[2021-07-06] MEDS: FLUTICASONE PROPIONATE NA SPR 16 GM BTL SCH (08:22)
[2021-07-06] MEDS: INSULIN ASPART 100 UNITS/ML 3 ML PEN SC SCH ×4 (08:23→20:18)
[2021-07-06] MEDS: BARICITINIB 2 MG TAB PO SCH (11:44)
--- NOTE | 2021-07-06 12:17 | Pharmacy Report ---
Pharmacy Glycemic Short Note 2 - Date of Service July 06, 2021 - Glycemic Short BSG Results (Last 24 hours): 07/05/21 07/05/21 07/05/21 12:24 16:54 20:07 Glucose POC Glucose 105 H 139 H 148 H 07/06/21 07/06/21 07/06/21 05:24 08:14 11:43 Glucose 82 POC Glucose 73 143 H OUTPATIENT ANTIDIABETIC REGIMEN: * None * HbA1c 6.8% on 07/02/21 ASSESSMENT: 07/06 * Stressors stable * Patient received 11 units of insulin yesterday (10 basal, 1 bolus), with BSG's ranging 92-148 mg/dL * AM fasting BSG well below goal range despite minimal basal insulin yesterday - will hold * Post-prandial BSG's yesterday good although po intake poor - no change to Novolog 07/05 * Stressors stable * AM fasting BSG below goal range - will significantly reduce NPH * Post-prandial BSG's yesterday good - no change to Novolog 07/04 * 56 yo F with new diagnosis of diabetes admitted with COVID-19 and on steroids * Pharmacy consulted on day 3 of admission. AM random BSG's have ranged 140-176 mg/dL over the last 3 days * Will start NPH to mimic PK of dexamethasone, but will not be aggressive as AM fasting this AM is in goal range without basal insulin (although at the upper end of goal) * Will start Novolog ACHS between weight-based moderate to severe stress estimate. Will adjust based on trend in BSG's PLAN FOR INPATIENT GLYCEMIC CONTROL: * Basal insulin * NPH 10 units SC x1 now * Bolus insulin * NovoLog per scale ACHS or Q6hrs while NPO * Goal Range: Low 110 mg/dL - High 140 mg/dL * Correction Factor: 25 mg/dL/unit * Nutritional / Prandial insulin per carb ratio of 1 unit per 8 grams CHO consumed PLAN FOR DISCHARGE: * backend tester consulted on 07/04 - awaiting recommendations * Possible consideration to metformin monotherapy due to mildly elevated HbA1c and also low inpatient insulin requirements despite acute illness and steroids. Would then suggest metformin ER 500 mg po daily initially, with up-titration per outpatient provider assuming no contraindications at discharge * Late-onset type 1 diabetes can't be excluded although it is considered less likely. Patient may benefit from occasional BSG monitoring as an outpatient. Awaiting diabetes trainer assessment
--- NOTE | 2021-07-06 14:50 | Pulmonology Progress Note ---
Date of Service July 06, 2021 Assessment & Plan (1) Acute hypoxemic respiratory failure: (2) Pneumonia due to 2019 novel coronavirus: (3) Hypoxia: Plan: Impression: 56-year-old female not vaccinated for Covid presenting with acute Covid pneumonia and hypoxemic respiratory failure. She is stable to slightly better using positional therapy, high flow oxygen, and dexamethasone and baricitinib. Recommendations: 1. Covid pneumonia: Continue dexamethasone 6 mg daily and with baricitinib and follow clinically. 2. Hypoxemic respiratory failure: Positional therapy appears to be effective currently. Should we fail to meet oxygenation goals, next up would be to place her back on noninvasive positive pressure ventilation. Slight progress over the last 24 hours. This was discussed with the patient in detail. 3. No evidence of PE on CT angiogram. Continue DVT prophylaxis. We will continue to follow closely. Please let us know if her condition deter iorates. Admission and Anticipated Discharge Date Admission Date: July 02, 2021 Subjective Patient seen and examined. EMR reviewed. She thinks she might be feeling a little bit better today. We have been able to slightly wean her oxygen requirement. She is sleeping. She is trying to remain positive but is appropriately fearful of her medical condition Review of Systems Review of Systems: Unchanged from prior Physical Exam Constitutional: WD/WN, vitals as above Neck: trachea midline, no thyromegaly Respiratory: + labored breathing and + tachypneic; no respiratory distress Cardiovascular: RRR, no murmur, no edema Gastrointestinal (Abdomen): normal bowel sounds, soft, nontender, no hepatosplenomegaly Musculoskeletal: Extremities: extremities normal to inspection Skin: no rashes, warm and dry Lymphatic: no cervical lymphadenopathy Results & Data Results & Data ([facility]) Vital Signs (Past 12 Hours) Vital Signs Temp Pulse Resp BP Pulse Ox 07/06/21 11:56 71 24 89 L 07/06/21 11:41 37.2 C 82 18 158/93 H 90 07/06/21 07:20 73 26 H 94 07/06/21 07:12 36.8 C 79 22 152/100 H 88 L 07/06/21 05:41 73 15 88 L 07/06/21 03:49 36.8 C 71 20 164/79 H 96 Laboratory Results 07/06/21 05:24 07/06/21 05:24 Diagnostic Findings No new imaging PG Care Time/CCT Total # of Minutes Spent Total Time Spent with Patient: Total time spent is greater than 50% in coordination of care (as documented) at patient's floor/unit and/or counseling patient: Coding Level of Care Code 71542 Subseq Hosp Care Lvl 2 Diagnoses Acute hypoxemic respiratory failure J96.01 Pneumonia due to 2019 novel coronavirus U07.1; J12.82 Hypoxia R09.02
--- NOTE | 2021-07-06 15:44 | Hospitalist Progress Note ---
Date of Service July 06, 2021 Assessment & Plan (1) Acute hypoxemic respiratory failure: Plan: 56-year-old lady with PMH significant for hypertension, celiac disease, NAFLD presented 07/02 to our ED with complaint of shortness of breathworsening secondary to recent diagnosis of Covid positive at primary care office. She is being managed for the following: #. Covid pneumonia #. Acute hypoxemic respiratory failure. Symptoms for 10 days [employer] LOC[employer]. 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 Patient requiring very high flow oxygen. Continue oxygen [high flow and CPAP], wean as tolerated, prone position as able, continue dexamethasone, continue with flutter valve and incentive spirometry. Continue heparin. Dexamethasone 07/02 Remdesivir 1 dose on 07/02, discontinued 07/03 Baricitinib 07/03 Patient updated about the plan of care and expectation/prognosis associated with Covid treatment. Pulmonology consulted: Recommends discontinuing remdesivir and patient is candidate for baricitinib and hence is started on it. 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 Pro-BNP level 520, pro-Milad negative. Negative for pulmonary embolism Encouraged to use flutter valve and incentive spirometry while awake. Minimally improved as of today, if the condition gets worse may need intubation and mechanical ventilation Remains stable and has been proning as long as she can Clinically a little bit better today #. Chronic medical conditions: GERD/hypertension Resume home meds DVT prophylaxis Heparin subcu Full code Patient's requesting updates from providers. Mr. Earle Burgos, contact number [phone]. Admission and Anticipated Discharge Date Admission Date: July 02, 2021 Subjective 07/06/2021 The patient was seen and examined in telemetry unit and in the Covid room She has been feeling a little better but is still requiring high flow nasal ca nnula to maintain saturation She has been proning as needed and as far as she can Review of Systems Review of Systems: All systems reviewed and are unremarkable except as noted below Physical Exam Physical Exam: Lying in bed comfortably Constitutional: well developed, well nourished, + ill appearing and average body habitus Eyes: PERRL, conjunctivae normal, anicteric sclerae ENMT: external ear and nose normal, oropharynx normal Neck: trachea midline, no thyromegaly Respiratory: + respiratory distress and + cough Auscultation: + diminished lung sounds and + crackles (At the bases) Cardiovascular: Rate/Rhythm: regular rate and regular rhythm; not tachycardic Heart Sounds: normal S1 and normal S2; no murmur Extremities: no edema Gastrointestinal (Abdomen): Inspection/Auscultation: normal bowel sounds; abdomen not distended Percussion/Palpation: abdomen soft; abdomen nontender Musculoskeletal: No acute arthritis in any joint Neurologic: Awake and oriented x3. No focal sensory or no motor deficit appreciated Results & Data Results & Data ([facility]) Vital Signs (Past 12 Hours) Vital Signs Temp Pulse Resp BP Pulse Ox 07/06/21 15:33 36.5 C 68 22 157/93 H 91 07/06/21 15:21 71 21 91 07/06/21 11:56 71 24 89 L 07/06/21 11:41 37.2 C 82 18 158/93 H 90 07/06/21 07:20 73 26 H 94 07/06/21 07:12 36.8 C 79 22 152/100 H 88 L 07/06/21 05:41 73 15 88 L 07/06/21 03:49 36.8 C 71 20 164/79 H 96 Laboratory Results Short CBC 07/06/21 Range/Units 05:24 WBC 20.16 H (4.8-10.8) K/uL Hgb 13.1 (12.0-16.0) g/dL Hct 39.3 (37-47) % Plt Count 465 H (130-400) K/uL BMP 07/06/21 05:24 Sodium 138 Potassium 4.1 Chloride 104 Carbon Dioxide 32 BUN 27 H Creatinine 0.79 Glucose 82 Calcium 8.9 Medications Administered Current Inpatient Medications Acetaminophen (Acetaminophen 325 Mg Tab) 650 mg PO Q4H PRN PRN Reason: Pain or Fever Stop: 08/01/21 21:59 Last Admin: 07/06/21 08:21 Dose: 650 mg Documented by: Baricitinib (Baricitinib 2 Mg Tab) 4 mg PO DAILY [facility] Stop: 07/17/21 08:59 Last Admin: 07/06/21 11:44 Dose: 4 mg Documented by: Cyanocobalamin (Cyanocobalamin (Vitamin B-12) 2,500 Mcg Tab.Subl) 2,500 mcg SL QAM [facility] Stop: 08/02/21 08:59 Last Admin: 07/06/21 08:21 Dose: 2,500 mcg Documented by: Dextrose (Dextrose 50% 50 Ml Syringe) 25 - 50 ml IV UD PRN; Protocol PRN Reason: Hypoglycemia Protocol Stop: 08/03/21 09:55 Escitalopram Oxalate (Escitalopram Oxalate 10 Mg Tab) 5 mg PO DAILY [facility] Stop: 08/02/21 08:59 Last Admin: 07/06/21 08:21 Dose: 5 mg Documented by: Fluticasone Propionate (Fluticasone Propionate Na Spr 16 Gm Btl) 1 sprays NA QAM [facility] Stop: 08/02/21 08:59 Last Admin: 07/06/21 08:22 Dose: 1 sprays Documented by: Glucagon (Glucagon For Inj 1 Mg Vial) 1 mg SQ UD PRN; Protocol PRN Reason: Hypoglycemia Protocol Stop: 08/03/21 09:55 Glucose (Glucose 10 Tabs/Tube) 4 - 8 tabs PO UD PRN; Protocol PRN Reason: Hypoglycemia Protocol Stop: 08/03/21 09:55 Glucose (Glucose 40% Gel 15 Gm Tube) 15 - 30 gm PO UD PRN; Protocol PRN Reason: Hypoglycemia Protocol Stop: 08/03/21 09:55 Heparin Sodium (Porcine) (Heparin Sod 5,000 Unit/0.5 Ml Vial) 5,000 units SQ Q8 [facility] Stop: 08/01/21 21:59 Last Admin: 07/06/21 12:29 Dose: 5,000 units Documented by: Dexamethasone 6 mg/ Syringe 1.5 mls @ 1 mls/min IV DAILY [facility] Stop: 07/12/21 16:29 Last Admin: 07/06/21 08:22 Dose: 1 mls/min Documented by: Promethazine HCl 12.5 mg/ (Sodium Chloride) 50.5 mls @ 202 mls/hr IV Q6H PRN PRN Reason: Nausea And Vomiting Stop: 08/01/21 21:59 Insulin Aspart (Insulin Aspart 100 Units/Ml 3 Ml Pen) 0 units SC ACHS [facility]; Protocol Stop: 08/03/21 11:29 Last Admin: 07/06/21 11:44 Dose: 3 units Documented by: Ipratropium Brea (Ipratropium Brea Neb Soln 0.02% 2.5 Ml Vial) 0.5 mg INH Q4H PRN PRN Reason: sob/wheezing Stop: 08/01/21 21:59 Levalbuterol HCl (Levalbuterol 1.25mg/0.5ml Neb) 1.25 mg INH Q4H PRN PRN Reason: sob/wheezing Stop: 08/01/21 21:59 Loratadine (Loratadine 10 Mg Tab) 10 mg PO DAILY [facility] Stop: 08/02/21 08:59 Last Admin: 07/06/21 08:21 Dose: 10 mg Documented by: Miscellaneous (Carbohydrates For Hypoglycemia ) 15 - 30 gm PO UD PRN PRN Reason: Hypoglycemia Protocol Stop: 08/03/21 09:55 Miscellaneous Information (Pharmacy Glycemic Mgmt Consult) 1 ea N/A UD PRN; Protocol PRN Reason: Consult Stop: 08/03/21 09:55 Montelukast Sodium (Montelukast Sodium 10 Mg Tablet) 10 mg PO QAM [facility] Stop: 08/02/21 08:59 Last Admin: 07/06/21 08:21 Dose: 10 mg Documented by: Multivitamins (Multivitamin Tab) 1 tab PO DAILY [facility] Stop: 08/02/21 08:59 Last Admin: 07/06/21 08:21 Dose: 1 tab Documented by: Oxycodone HCl (Oxycodone Hcl Ir 5 Mg Tab (Immediate Release)) 5 mg PO Q4H PRN PRN Reason: Pain Stop: 07/16/21 21:59 Last Admin: 07/06/21 08:20 Dose: 5 mg Documented by: Pantoprazole Sodium (Pantoprazole 40 Mg Tab) 40 mg PO DAILY [facility] Stop: 08/02/21 08:59 Last Admin: 07/06/21 08:21 Dose: 40 mg Documented by:
[2021-07-06] MEDS ORDERED: hydrALAZINE HCL 20 MG/ML VIAL IV STA (22:25)
[2021-07-06] MEDS ORDERED: LORazepam 0.5 MG TAB PO STA (23:21)
[2021-07-06] MEDS ORDERED: LABETALOL HCL IV 5 MG/ML 20ML IV STA (23:21)
[2021-07-07] MEDS: HEPARIN SOD 5,000 UNIT/0.5 ML VIAL SQ SCH ×3 (06:08→21:28)
[2021-07-07] MEDS: INSULIN ASPART 100 UNITS/ML 3 ML PEN SC SCH ×4 (08:25→21:00)
[2021-07-07] MEDS: dexAMETHasone 6 MG in SYRINGE 0 ML IV SCH (08:26)
[2021-07-07] MEDS: BARICITINIB 2 MG TAB PO SCH (08:26)
[2021-07-07] MEDS: ACETAMINOPHEN 325 MG TAB PO PRN ×2 (08:26→21:28)
[2021-07-07] MEDS: LORATADINE 10 MG TAB PO SCH (08:27)
[2021-07-07] MEDS: PANTOprazole 40 MG TAB PO SCH (08:27)
[2021-07-07] MEDS: ESCITALOPRAM OXALATE 10 MG TAB PO SCH (08:27)
[2021-07-07] MEDS: FLUTICASONE PROPIONATE NA SPR 16 GM BTL SCH (08:27)
[2021-07-07] MEDS: MONTELUKAST SODIUM 10 MG TABLET PO SCH (08:27)
[2021-07-07] MEDS: MULTIVITAMIN TAB PO SCH (08:27)
[2021-07-07] MEDS: CYANOCOBALAMIN (VITAMIN B-12) 2,500 MCG TAB.SUBL SL SCH (08:27)
[2021-07-07] MEDS ORDERED: FUROSEMIDE 40 MG in SYRINGE 0 ML IV ONE (08:47)
--- NOTE | 2021-07-07 08:57 | Pulmonology Progress Note ---
Date of Service July 07, 2021 Assessment & Plan (1) Acute hypoxemic respiratory failure: (2) Pneumonia due to 2019 novel coronavirus: (3) Hypoxia: Plan: Impression: 56-year-old female not vaccinated for Covid presenting with acute Covid pneumonia and hypoxemic respiratory failure. She has had a clinical setback over the last 24 hours requiring application of noninvasive positive pressure ventilation. Recommendations: 1. Covid pneumonia: Continue dexamethasone 6 mg daily and with baricitinib and follow clinically. 2. Hypoxemic respiratory failure: We will repeat chest x-ray this morning. We will try and wean her back to heated high flow oxygen and see how she does. I advised the patient that given her clinical deterioration, mechanical ventilation may be necessary. She states she is breathing okay currently and wishes to continue current therapy for now which I think is reasonable although we will need to monitor her closely. She does not describe increasing work of breathing or respiratory fatigue. Ideally would like to get her completely prone but she is having difficulty tolerating this. If she were to progress to intubation mechanical ventilation, baricitinib will be discontinued. 3. No evidence of PE on CT angiogram. Continue DVT prophylaxis. We will continue to follow closely. Please let us know if her condition deteriorates. Admission and Anticipated Discharge Date Admission Date: July 02, 2021 Subjective Patient seen and examined. EMR reviewed. Overnight the patient was transitioned off of high flow to CPAP. CPAP had to be increased to 15 cmH2O to improve oxygen saturations. She was somewhat claustrophobic with the mask and has had intermittent issues with panic attacks. She is tolerating lateral decubitus positioning but has not been able to get prone. Review of Systems Review of Systems: Negative except as noted above Physical Exam Constitutional: WD/WN, vitals as above Neck: trachea midline, no thyromegaly Respiratory: + labored breathing and + tachypneic Cardiovascular: RRR, no murmur, no edema Gastrointestinal (Abdomen): normal bowel sounds, soft, nontender, no hepatosplenomegaly Musculoskeletal: Extremities: extremities normal to inspection Skin: no rashes, warm and dry Lymphatic: no cervical lymphadenopathy Results & Data Results & Data ([facility]) Vital Signs (Past 12 Hours) Vital Signs Temp Pulse Pulse Pulse Resp BP BP 07/07/21 08:14 85 22 07/07/21 07:08 37.0 C 83 21 180/98 H 07/07/21 05:49 72 18 07/07/21 04:21 37.1 C 80 20 181/96 H 07/07/21 03:08 70 16 07/07/21 02:08 66 17 07/07/21 00:21 68 20 07/07/21 00:12 72 168/84 H 07/06/21 23:38 90 07/06/21 23:34 66 152/90 H 07/06/21 23:05 37.3 C 79 21 186/110 H 182/105 H 07/06/21 22:35 187/105 H 07/06/21 22:21 66 17 07/06/21 22:00 191/115 H Pulse Ox 07/07/21 08:14 92 07/07/21 07:08 92 07/07/21 05:49 93 07/07/21 04:21 92 07/07/21 03:08 92 07/07/21 02:08 84 L 07/07/21 00:21 87 L 07/07/21 00:12 07/06/21 23:38 07/06/21 23:34 07/06/21 23:05 96 07/06/21 22:35 07/06/21 22:21 88 L 07/06/21 22:00 Critical Care Results & Data Vital Signs (Past 12 Hours) Vital Signs Temp Pulse Pulse Pulse Resp BP BP 07/07/21 08:14 85 22 07/07/21 07:08 37.0 C 83 21 180/98 H 07/07/21 05:49 72 18 07/07/21 04:21 37.1 C 80 20 181/96 H 07/07/21 03:08 70 16 07/07/21 02:08 66 17 07/07/21 00:21 68 20 07/07/21 00:12 72 168/84 H 07/06/21 23:38 90 07/06/21 23:34 66 152/90 H 07/06/21 23:05 37.3 C 79 21 186/110 H 182/105 H 07/06/21 22:35 187/105 H 07/06/21 22:21 66 17 07/06/21 22:00 191/115 H Pulse Ox 07/07/21 08:14 92 07/07/21 07:08 92 07/07/21 05:49 93 07/07/21 04:21 92 07/07/21 03:08 92 07/07/21 02:08 84 L 07/07/21 00:21 87 L 07/07/21 00:12 07/06/21 23:38 07/06/21 23:34 07/06/21 23:05 96 07/06/21 22:35 07/06/21 22:21 88 L 07/06/21 22:00 Lab & Micro Results (Past 24 Hours) No Data to Display No Data to Display No Data to Display I & O Totals 24 Hours 07/06/21 07/07/21 07/08/21 06:59 06:59 06:59 Intake Total 1999 / 1999 700 / 700 Output Total 1201 / 1201 1700 / 1700 Balance 799 / 799 -1000 / -1000 Cumulative 07/02/21 15:21 thru 07/07/21 04:23 Intake Total 7696.666 Output Total 8652 Balance -955.334 RT Ventilator Mngmt (Last Documented) Ventilator Ordered Settings Respiratory Rate 22 07/07/21 08:14 Fraction of Inspired Oxygen 100 07/07/21 08:14 Ventilator - PT Measurements Respiratory Rate 22 PG Care Time/CCT Total # of Minutes Spent Total Time Spent with Patient: Total time spent is greater than 50% in coordination of care (as documented) at patient's floor/unit and/or counseling patient: Coding Level of Care Code 39305 Subseq Hosp Care Lvl 2 Diagnoses Acute hypoxemic respiratory failure J96.01 Pneumonia due to 2019 novel coronavirus U07.1; J12.82 Hypoxia R09.02
[2021-07-07] MEDS ORDERED: FUROSEMIDE 40 MG/4 ML VIAL IV ONE (09:30)
--- NOTE | 2021-07-07 09:34 | XRay Report ---
XR chest 1V portable HISTORY: 56 years-old Female hypoxemia acute hypoxia COMPARISON: CTA chest 07/04/2021, chest radiograph 07/02/2021 TECHNIQUE: Portable AP view of the chest FINDINGS: Cardiac mediastinal and hilar silhouettes are unchanged. Mild right hemidiaphragm elevation redemonst rated. No pneumothorax or large pleural effusion. Ill-defined multifocal lateral pulmonary opacities correlate with the groundglass density seen on comparison chest CT appear generally stable from dora rison. No acute fracture. Levoscoliosis of the thoracolumbar junction redemonstrated. IMPRESSION: No significant change of the multifocal viral pneumonia. ACT 112: Negative or not required by law. The above report was generated using voice recognition software. It may contain grammatical, syntax o r spelling errors. Electronically signed by: Joseph Nance M.D. 07/07/2021 9:32 AM
[2021-07-07] MEDS: amLODIPine BESYLATE 5 MG TAB PO SCH (11:34)
[2021-07-07] MEDS: oxyCODONE HCL IR 5 MG TAB (IMMEDIATE RELEASE) PO PRN ×2 (13:31→21:28)
--- NOTE | 2021-07-07 13:53 | Pharmacy Report ---
Pharmacy Glycemic Short Note 2 - Date of Service July 07, 2021 - Glycemic Short BSG Results (Last 24 hours): 07/06/21 07/06/21 07/07/21 16:36 20:09 08:04 POC Glucose 138 H 169 H 91 07/07/21 11:38 POC Glucose 137 H OUTPATIENT ANTIDIABETIC REGIMEN: * None * HbA1c 6.8% on 07/02/21 ASSESSMENT: 07/07 * Stressors stable * Patient received 8 units of prandial/correctional insulin with adequate cont rol * Fasting 91 mg/dL, will continue to hold basal for now * No change to novolog. 07/06 * Stressors stable * Patient received 11 units of insulin yesterday (10 basal, 1 bolus), with BSG's ranging 92-148 mg/dL * AM fasting BSG well below goal range despite minimal basal insulin yesterday - will hold * Post-prandial BSG's yesterday good although po intake poor - no change to Novolog 07/05 * Stressors stable * AM fasting BSG below goal range - will significantly reduce NPH * Post-prandial BSG's yesterday good - no change to Novolog 07/04 * 56 yo F with new diagnosis of diabetes admitted with COVID-19 and on steroids * Pharmacy consulted on day 3 of admission. AM random BSG's have ranged 140-176 mg/dL over the last 3 days * Will start NPH to mimic PK of dexamethasone, but will not be aggressive as AM fasting this AM is in goal range without basal insulin (although at the upper end of goal) * Will start Novolog ACHS between weight-based moderate to severe stress estimate. Will adjust based on trend in BSG's PLAN FOR INPATIENT GLYCEMIC CONTROL: * Basal insulin * hold * Bolus insulin * NovoLog per scale ACHS or Q6hrs while NPO * Goal Range: Low 110 mg/dL - High 140 mg/dL * Correction Factor: 25 mg/dL/unit * Nutritional / Prandial insulin per carb ratio of 1 unit per 8 grams CHO consumed PLAN FOR DISCHARGE: * see note from 07/06
--- NOTE | 2021-07-07 15:08 | Hospitalist Progress Note ---
Date of Service July 07, 2021 Assessment & Plan (1) Acute hypoxemic respiratory failure: Plan: 56-year-old lady with PMH significant for hypertension, celiac disease, NAFLD presented 07/02 to our ED with complaint of shortness of breathworsening secondary to recent diagnosis of Covid positive at primary care office. She is being managed for the following: #. Covid pneumonia-did not receive the vaccine #. Acute hypoxemic respiratory failure. Symptoms for 10 days [employer]. 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 Patient requiring very high flow oxygen. Continue oxygen [high flow and CPAP], wean as tolerated, prone position as able, continue dexamethasone, continue with flutter valve and incentive spirometry. Continue heparin. Dexamethasone 07/02 Remdesivir 1 dose on 07/02, discontinued 07/03 Baricitinib 07/03 Patient updated about the plan of care and expectation/prognosis associated with Covid treatment. Pulmonology consulted: Recommends discontinuing remdesivir and patient is candidate for baricitinib and hence is started on it. I/Os so far +98 mL, use as needed Lasix to keep her on primer expeditor and drier side. Pro-BNP level 520, pro-Milad negative. Negative for pulmonary embolism Encouraged to use flutter valve and incentive spirometry while awake. Minimally improved as of today, if the condition gets worse may need intubation and mechanical ventilation Remains stable and has been proning as long as she can Clinically a little bit better today Repeat chest x-ray showed no significant improvement of the pneumonia on 07/07/2021 We will continue current management #. Chronic medical conditions: GERD/hypertension Resume home meds No pulmonary embolism on CTA DVT prophylaxis Heparin subcu Full code Patient's requesting updates from providers. Mr. Earle Burgos, contact number [phone]. Admission and Anticipated Discharge Date Admission Date: July 02, 2021 Subjective 07/06/2021 The patient was seen and examined in telemetry unit and in the Covid room She has been feeling a little better but is still requiring high flow nasal cannula to maintain saturation She has been proning as needed and as far as she can 07/07/2021 The patient was seen and examined in telemetry unit and in the Covid room She has been feeling a little better though she has had a setback last night Still has cough and moderate shortness of breath at rest Review of Systems Review of Systems: All systems reviewed and are unremarkable except as noted below Physical Exam Physical Exam: Lying in bed with moderate respiratory distress Constitutional: well developed, well nourished, + ill appearing and average body habitus Eyes: PERRL, conjunctivae normal, anicteric sclerae ENMT: external ear and nose normal, oropharynx normal Neck: trachea midline, no thyromegaly Respiratory: + respiratory distress and + cough Auscultation: + diminished lung sounds and + crackles (At the bases) Cardiovascular: Rate/Rhythm: regular rate and regular rhythm; not tachycardic Heart Sounds: normal S1 and normal S2; no murmur Extremities: no edema Gastrointestinal (Abdomen): Inspection/Auscultation: normal bowel sounds; abdomen not distended Percussion/Palpation: abdomen soft; abdomen nontender Musculoskeletal: No acute arthritis involving any joint Neurologic: Alert, awake and oriented x3. Generally weak but no focal sensory and motor deficit appreciated Lymphatic: no cervical or axillary lymphadenopathy Results & Data Results & Data ([facility]) Vital Signs (Past 12 Hours) Vital Signs Temp Pulse Pulse Pulse Resp BP BP 07/07/21 14:00 83 20 07/07/21 12:09 80 17 157/102 H 07/07/21 11:12 74 22 07/07/21 10:56 36.9 C 78 22 07/07/21 08:14 85 22 07/07/21 07:08 37.0 C 83 21 180/98 H 07/07/21 05:49 72 18 07/07/21 04:21 37.1 C 80 20 07/07/21 03:08 70 16 BP Pulse Ox 07/07/21 14:00 95 07/07/21 12:09 93 07/07/21 11:12 94 07/07/21 10:56 95 07/07/21 08:14 92 07/07/21 07:08 92 07/07/21 05:49 93 07/07/21 04:21 181/96 H 92 07/07/21 03:08 92 Medications Administered Current Inpatient Medications Acetaminophen (Acetaminophen 325 Mg Tab) 650 mg PO Q4H PRN PRN Reason: Pain or Fever Stop: 08/01/21 21:59 Last Admin: 07/07/21 08:26 Dose: 650 mg Documented by: Amlodipine Besylate (Amlodipine Besylate 5 Mg Tab) 5 mg PO LAMAR [facility] Stop: 08/06/21 09:59 Last Admin: 07/07/21 11:34 Dose: 5 mg Documented by: Baricitinib (Baricitinib 2 Mg Tab) 4 mg PO DAILY NAKIA Stop: 07/17/21 08:59 Last Admin: 07/07/21 08:26 Dose: 4 mg Documented by: Cyanocobalamin (Cyanocobalamin (Vitamin B-12) 2,500 Mcg Tab.Subl) 2,500 mcg SL QAM NAKIA Stop: 08/02/21 08:59 Last Admin: 07/07/21 08:27 Dose: 2,500 mcg Documented by: Dextrose (Dextrose 50% 50 Ml Syringe) 25 - 50 ml IV UD PRN; Protocol PRN Reason: Hypoglycemia Protocol Stop: 08/03/21 09:55 Escitalopram Oxalate (Escitalopram Oxalate 10 Mg Tab) 5 mg PO DAILY [facility] Stop: 08/02/21 08:59 Last Admin: 07/07/21 08:27 Dose: 5 mg Documented by: Fluticasone Propionate (Fluticasone Propionate Na Spr 16 Gm Btl) 1 sprays NA QAM NAKIA Stop: 08/02/21 08:59 Last Admin: 07/07/21 08:27 Dose: 1 sprays Documented by: Glucagon (Glucagon For Inj 1 Mg Vial) 1 mg SQ UD PRN; Protocol PRN Reason: Hypoglycemia Protocol Stop: 08/03/21 09:55 Glucose (Glucose 10 Tabs/Tube) 4 - 8 tabs PO UD PRN; Protocol PRN Reason: Hypoglycemia Protocol Stop: 08/03/21 09:55 Glucose (Glucose 40% Gel 15 Gm Tube) 15 - 30 gm PO UD PRN; Protocol PRN Reason: Hypoglycemia Protocol Stop: 08/03/21 09:55 Heparin Sodium (Porcine) (Heparin Sod 5,000 Unit/0.5 Ml Vial) 5,000 units SQ Q8 NAKIA Stop: 08/01/21 21:59 Last Admin: 07/07/21 13:31 Dose: 5,000 units Documented by: Dexamethasone 6 mg/ Syringe 1.5 mls @ 1 mls/min IV DAILY NAKIA Stop: 07/12/21 16:29 Last Admin: 07/07/21 08:26 Dose: 1 mls/min Documented by: Promethazine HCl 12.5 mg/ (Sodium Chloride) 50.5 mls @ 202 mls/hr IV Q6H PRN PRN Reason: Nausea And Vomiting Stop: 08/01/21 21:59 Insulin Aspart (Insulin Aspart 100 Units/Ml 3 Ml Pen) 0 units SC ACHS [facility]; Protocol Stop: 08/03/21 11:29 Last Admin: 07/07/21 12:02 Dose: 2 units Documented by: Ipratropium [place] (Ipratropium [place] Neb Soln 0.02% 2.5 Ml Vial) 0.5 mg INH Q4H PRN PRN Reason: sob/wheezing Stop: 08/01/21 21:59 Levalbuterol HCl (Levalbuterol 1.25mg/0.5ml Neb) 1.25 mg INH Q4H PRN PRN Reason: sob/wheezing Stop: 08/01/21 21:59 Loratadine (Loratadine 10 Mg Tab) 10 mg PO DAILY [facility] Stop: 08/02/21 08:59 Last Admin: 07/07/21 08:27 Dose: 10 mg Documented by: Miscellaneous (Carbohydrates For Hypoglycemia ) 15 - 30 gm PO UD PRN PRN Reason: Hypoglycemia Protocol Stop: 08/03/21 09:55 Miscellaneous Information (Pharmacy Glycemic Mgmt Consult) 1 ea N/A UD PRN; Protocol PRN Reason: Consult Stop: 08/03/21 09:55 Montelukast Sodium (Montelukast Sodium 10 Mg Tablet) 10 mg PO QAM [facility] Stop: 08/02/21 08:59 Last Admin: 07/07/21 08:27 Dose: 10 mg Documented by: Multivitamins (Multivitamin Tab) 1 tab PO DAILY NAKIA Stop: 08/02/21 08:59 Last Admin: 07/07/21 08:27 Dose: 1 tab Documented by: Oxycodone HCl (Oxycodone Hcl Ir 5 Mg Tab (Immediate Release)) 5 mg PO Q4H PRN PRN Reason: Pain Stop: 07/16/21 21:59 Last Admin: 07/07/21 13:31 Dose: 5 mg Documented by: Pantoprazole Sodium (Pantoprazole 40 Mg Tab) 40 mg PO DAILY [facility] Stop: 08/02/21 08:59 Last Admin: 07/07/21 08:27 Dose: 40 mg Documented by:
[2021-07-08] MEDS: HEPARIN SOD 5,000 UNIT/0.5 ML VIAL SQ SCH ×3 (06:31→20:30)
[2021-07-08 06:54] LABS: Basophils # (auto) 0.01 K/uL (0-0.2); Basophils % (auto) 0.1 %; Eosinophils # (auto) 0.07 K/uL (0-0.5); Eosinophils % (auto) 0.4 %; Hematocrit (blood only) 41.4 % (37-47); Hemoglobin 13.8 g/dL (12.0-16.0); Immature Granulocytes # (auto) 0.31 K/uL (0.00-0.02); Immature Granulocytes % (auto) 1.8 %; Lymphocytes # (auto) 0.63 K/uL (1.2-3.4); Lymphocytes % (auto) 3.8 %; Mean Corpuscular Hemoglobin 30.9 pg (25-34); Mean Corpuscular Hgb Conc 33.3 g/dL (32-36); Mean Corpuscular Volume 92.8 fL (80-100); Monocytes # (auto) 0.57 K/uL (0.11-0.59); Monocytes % (auto) 3.4 %; Neutrophils % (auto) 90.5 %; Platelet Count 656 K/uL (130-400); RDW Coefficient of Variation 12.8 % (11.5-14.5); RDW Standard Deviation 43.5 fL (36.4-46.3); Red Blood Count 4.46 M/uL (4.2-5.4); White Blood Count 16.79 K/uL (4.8-10.8)
[2021-07-08 07:14] LABS: Albumin Globulin Ratio 0.4 (0.9-2); Albumin Level 2.2 gm/dl (3.4-5.0); BUN Creatinine Ratio 43.3 (10-20); Bilirubin,Total 0.5 mg/dl (0.2-1); C Reactive Protein 13.7 mg/dl (0-0.29); Calcium 9.6 mg/dl (8.5-10.1); Creatinine Clr Calc Pharmacy 59.6 ml/min; Est GFR (African American) 71.9 ml/min; Est GFR (Non-African American) 62.1 ml/min; Globulin 5.4 gm/dl (2.5-4.0); Potassium 4.2 mmol/L (3.5-5.1); Total Protein 7.6 gm/dl (6.4-8.2)
[2021-07-08] MEDS: INSULIN ASPART 100 UNITS/ML 3 ML PEN SC SCH ×4 (08:43→20:31)
[2021-07-08] MEDS: amLODIPine BESYLATE 5 MG TAB PO SCH (08:44)
[2021-07-08] MEDS: CYANOCOBALAMIN (VITAMIN B-12) 2,500 MCG TAB.SUBL SL SCH (08:45)
[2021-07-08] MEDS: ESCITALOPRAM OXALATE 10 MG TAB PO SCH (08:45)
[2021-07-08] MEDS: LORATADINE 10 MG TAB PO SCH (08:47)
[2021-07-08] MEDS: PANTOprazole 40 MG TAB PO SCH (08:47)
[2021-07-08] MEDS: MULTIVITAMIN TAB PO SCH (08:48)
[2021-07-08] MEDS: FLUTICASONE PROPIONATE NA SPR 16 GM BTL SCH (08:48)
[2021-07-08] MEDS: MONTELUKAST SODIUM 10 MG TABLET PO SCH (08:50)
[2021-07-08] MEDS: dexAMETHasone 6 MG in SYRINGE 0 ML IV SCH (08:51)
[2021-07-08] MEDS: BARICITINIB 2 MG TAB PO SCH (08:58)
--- NOTE | 2021-07-08 09:01 | Pharmacy Report ---
Pharmacy Glycemic Short Note 2 - Date of Service July 08, 2021 - Glycemic Short BSG Results (Last 24 hours): 07/07/21 07/07/21 07/07/21 11:38 16:14 19:57 Glucose POC Glucose 137 H 162 H 184 H 07/08/21 07/08/21 06:07 07:17 Glucose 110 H POC Glucose 97 OUTPATIENT ANTIDIABETIC REGIMEN: * None * HbA1c 6.8% on 07/02/21 ASSESSMENT: 07/08 * Patient's BSGs yesterday were 92-773-500-184 mg/dL. Patient received 8 units of insulin (0 units of basal and 8 units of bolus). * Fasting today was 97 mg/dL. * Continue to hold Lantus. * BSGs trend up throughout the day so tighten CR as this is primarily affected by steroids. 07/07 * Stressors stable * Patient received 8 units of prandial/correctional insulin with adequate control * Fasting 91 mg/dL, will continue to hold basal for now * No change to novolog. 07/06 * Stressors stable * Patient received 11 units of insulin yesterday (10 basal, 1 bolus), with BSG's ranging 92-148 mg/dL * AM fasting BSG well below goal range despite minimal basal insulin yesterday - will hold * Post-prandial BSG's yesterday good although po intake poor - no change to Novolog 07/05 * Stressors stable * AM fasting BSG below goal range - will significantly reduce NPH * Post-prandial BSG's yesterday good - no change to Novolog 07/04 * 56 yo F with new diagnosis of diabetes admitted with COVID-19 and on steroids * Pharmacy consulted on day 3 of admission. AM random BSG's have ranged 140-176 mg/dL over the last 3 days * Will start NPH to mimic PK of dexamethasone, but will not be aggressive as AM fasting this AM is in goal range without basal insulin (although at the upper end of goal) * Will start Novolog ACHS between weight-based moderate to severe stress estimate. Will adjust based on trend in BSG's PLAN FOR INPATIENT GLYCEMIC CONTROL: * Basal insulin * hold * Bolus insulin * NovoLog per scale ACHS or Q6hrs while NPO * Goal Range: Low 110 mg/dL - High 140 mg/dL * Correction Factor: 25 mg/dL/unit * Nutritional / Prandial insulin per carb ratio of 1 unit per 6 grams CHO consumed PLAN FOR DISCHARGE: * see note from 07/06
[2021-07-08] MEDS ORDERED: POTASSIUM CHLORIDE CRTAB 20 MEQ TABCR PO STA (10:48)
[2021-07-08] MEDS ORDERED: FUROSEMIDE 40 MG in SYRINGE 0 ML IV ONE (10:48)
[2021-07-08] MEDS ORDERED: FUROSEMIDE 40 MG/4 ML VIAL IV ONE (11:00)
--- NOTE | 2021-07-08 11:49 | Pulmonology Progress Note ---
Date of Service July 08, 2021 Assessment & Plan (1) Acute hypoxemic respiratory failure: (2) Pneumonia due to 2019 novel coronavirus: (3) Hypoxia: Plan: Impression: 56-year-old female not vaccinated for Covid presenting with acute Covid pneumonia and hypoxemic respiratory failure. She is on a high level of noninvasive support currently. Recommendations: 1. Covid pneumonia: Currently on dexamethasone 6 mg daily and with baricitinib and follow clinically. Given the fact that she is now about 16 days out, it may be appropriate to increase her dexamethasone to 20 mg a day for 5 days followed by 10 mg a day for 5days for late-phase ARDS therapy. 2. Hypoxemic respiratory failure: She is stable on high flow oxygen currently. I see no findings on her chest x-ray that would account for her clinical deterioration or need for potential escalation of therapy. We will continue positional therapy. Could consider application of a nonrebreather oxygen mask over her high flow oxygen cannula if we were unable to maintain saturations. Would pursue CPAP or BiPAP should she fail. 3. No evidence of PE on CT angiogram. Continue DVT prophylaxis. I advised the patient that I think this process is going to take quite some time. I advised her that I do not anticipate that she would be dismissed from the hospital within the next 1 to 2weeks and may in fact require longer hospitalization. She is quite emotional at this and obviously frustrated with her lack of progress. She is also fearful about potential clinical deterioration. I tried to offer emotional support as much as possible. Admission and Anticipated Discharge Date Admission Date: July 02, 2021 Subjective Patient seen and examined. She is awake alert and sitting upright. She is on 60 L/min at 100% with oxygen saturations about 88%. She has intermittently been using lateral positioning and is tolerating it reasonably well. She would like to avoid CPAP. She does not feel like her work of breathing is excessive. She is not experiencing any chest pain or palpitations. No significant lower extremity edema. No wheezing. Cough remains nonproductive. Review of Systems Review of Systems: All systems reviewed & are unremarkable except as noted in HPI & below Physical Exam Constitutional: WD/WN, vitals as above Neck: trachea midline, no thyromegaly Respiratory: + labored breathing and + tachypneic; no respiratory distress Cardiovascular: RRR, no murmur, no edema Gastrointestinal (Abdomen): normal bowel sounds, soft, nontender, no hepatosplenomegaly Musculoskeletal: Extremities: extremities normal to inspection Skin: no rashes, warm and dry Lymphatic: no cervical lymphadenopathy Results & Data Results & Data ([facility]) Vital Signs (Past 12 Hours) Vital Signs Temp Pulse Pulse Pulse Resp BP Pulse Ox 07/08/21 08:00 07/08/21 07:39 36.9 C 66 18 161/82 H 91 07/08/21 06:21 37.2 C 79 16 169/99 H 96 07/08/21 06:16 69 18 97 07/08/21 02:46 67 20 95 07/08/21 00:32 36.4 C L 75 16 166/99 H 95 07/08/21 00:00 68 Pulse Ox 07/08/21 08:00 90 07/08/21 07:39 07/08/21 06:21 07/08/21 06:16 07/08/21 02:46 07/08/21 00:32 07/08/21 00:00 Critical Care Results & Data Vital Signs (Past 12 Hours) Vital Signs Temp Pulse Pulse Pulse Resp BP Pulse Ox 07/08/21 08:00 07/08/21 07:39 36.9 C 66 18 161/82 H 91 07/08/21 06:21 37.2 C 79 16 169/99 H 96 07/08/21 06:16 69 18 97 07/08/21 02:46 67 20 95 07/08/21 00:32 36.4 C L 75 16 166/99 H 95 07/08/21 00:00 68 Pulse Ox 07/08/21 08:00 90 07/08/21 07:39 07/08/21 06:21 07/08/21 06:16 07/08/21 02:46 07/08/21 00:32 07/08/21 00:00 Lab & Micro Results (Past 24 Hours) RBC 4.46 M/uL (4.2-5.4) 07/08/21 WBC 16.79 K/uL (4.8-10.8) H 07/08/21 Hgb 13.8 g/dL (12.0-16.0) 07/08/21 Hct 41.4 % (37-47) 07/08/21 MCV 92.8 fL (80-100) 07/08/21 MCH 30.9 pg (25-34) 07/08/21 MCHC 33.3 g/dL (32-36) 07/08/21 RDW Standard Deviation 43.5 fL (36.4-46.3) 07/08/21 RDW Coefficient of Variation 12.8 % (11.5-14.5) 07/08/21 Plt Count 656 K/uL (130-400) H 07/08/21 MPV 10.0 fL (7.4-10.4) 07/08/21 Neutrophils (%) (Auto) 90.5 % 07/08/21 Lymphocytes (%) (Auto) 3.8 % 07/08/21 Monocytes # (Auto) 0.57 K/uL (0.11-0.59) 07/08/21 Eosinophils # (Auto) 0.07 K/uL (0-0.5) 07/08/21 Immature Granulocyte % (Auto) 1.8 % 07/08/21 Neutrophils # (Auto) 15.20 K/uL (1.4-6.5) H 07/08/21 Lymphocytes # (Auto) 0.63 K/uL (1.2-3.4) L 07/08/21 Monocytes # (Auto) 0.57 K/uL (0.11-0.59) 07/08/21 Eosinophils # (Auto) 0.07 K/uL (0-0.5) 07/08/21 Basophils # (Auto) 0.01 K/uL (0-0.2) 07/08/21 Immature Granulocyte # (Auto) 0.31 K/uL (0.00-0.02) H 07/08/21 Na 135 mmol/L (136-145) L 07/08/21 K 4.2 mmol/L (3.5-5.1) 07/08/21 Cl 100 mmol/L (98-107) 07/08/21 CO2 31 mmol/L (21-32) 07/08/21 Anion Gap 4.0 (3-11) 07/08/21 BUN 43 mg/dl (7-18) H 07/08/21 Creatinine 1.00 mg/dl (0.6-1.2) 07/08/21 Estimated GFR ( Amer) 71.9 ml/min 07/08/21 Estimated GFR (Non-Af Amer) 62.1 ml/min 07/08/21 BUN/Creatinine Ratio 43.3 (10-20) H 07/08/21 Glu 110 mg/dl (70-99) H 07/08/21 Ca 9.6 mg/dl (8.5-10.1) 07/08/21 Total Bilirubin 0.5 mg/dl (0.2-1) 07/08/21 AST 21 U/L (15-37) 07/08/21 ALT 22 U/L (12-78) 07/08/21 Alkaline Phosphatase 74 U/L (45-117) 07/08/21 TP 7.6 gm/dl (6.4-8.2) 07/08/21 Albumin 2.2 gm/dl (3.4-5.0) L 07/08/21 Globulin 5.4 gm/dl (2.5-4.0) H 07/08/21 Albumin/Globulin Ratio 0.4 (0.9-2) L 07/08/21 Calcium Level 9.6 mg/dl (8.5-10.1) 07/08/21 06:07 07/08/21 Microbiology 07/02/21 17:12 Aerobic Blood Culture - Final Blood No growth in Aerobic bottle after 5 days. Anaerobic Blood Culture - Final No growth in Anaerobic bottle after 5 days. 07/02/21 17:05 Aerobic Blood Culture - Final Blood No growth in Aerobic bottle after 5 days. Anaerobic Blood Culture - Final No growth in Anaerobic bottle after 5 days. Diagnostic Findings (Past 24 Hours) Chest x-ray yesterday demonstrated no significant change in the multifocal airspace opacity. There was no new pleural effusion or pneumothorax noted. I & O Totals 24 Hours 07/07/21 07/08/21 07/09/21 06:59 06:59 06:59 Intake Total 700 / 700 960 / 960 Output Total 1700 / 1700 2301 / 2301 Balance -1000 / -1000 -1341 / -1341 Cumulative 07/02/21 15:21 thru 07/08/21 06:26 Intake Total 8656.666 Output Total 27442 Balance -2296.334 RT Ventilator Mngmt (Last Documented) Ventilator Ordered Settings Respiratory Rate 18 07/08/21 07:39 Fraction of Inspired Oxygen 100 07/08/21 07:39 Ventilator - PT Measurements Respiratory Rate 18 PG Care Time/CCT Total # of Minutes Spent Total Time Spent with Patient: Total time spent is greater than 50% in coordination of care (as documented) at patient's floor/unit and/or counseling patient: Coding Level of Care Code 10086 Subseq Hosp Care Lvl 3 Diagnoses Acute hypoxemic respiratory failure J96.01 Pneumonia due to 2019 novel coronavirus U07.1; J12.82 Hypoxia R09.02
[2021-07-08] MEDS: oxyCODONE HCL IR 5 MG TAB (IMMEDIATE RELEASE) PO PRN ×2 (13:13→20:30)
--- NOTE | 2021-07-08 13:57 | Hospitalist Progress Note ---
Date of Service July 08, 2021 Assessment & Plan (1) Acute hypoxemic respiratory failure: Plan: 56-year-old lady with PMH significant for hypertension, celiac disease, NAFLD presented 07/02 to our ED with complaint of shortness of breathworsening secondary to recent diagnosis of Covid positive at primary care office. She is being managed for the following: #. Covid pneumonia-did not receive the vaccine #. Acute hypoxemic respiratory failure. 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 Patient requiring very high flow oxygen. Continue oxygen [high flow and CPAP], wean as tolerated, prone position as able, continue dexamethasone, continue with flutter valve and incentive spirometry. Continue heparin. Dexamethasone 07/02 Remdesivir 1 dose on 07/02, discontinued 07/03 Baricitinib 07/03 Patient updated about the plan of care and expectation/prognosis associated with Covid treatment. Pulmonology consulted: Recommends discontinuing remdesivir and patient is candidate for baricitinib and hence is started on it. I/Os so far +98 mL, use as needed Lasix to keep her on raw stock drier tender side. Pro-BNP level 520, pro-Milad negative. Negative for pulmonary embolism Encouraged to use flutter valve and incentive spirometry while awake. Minimally improved as of today, if the condition gets worse may need intubation and mechanical ventilation Remains stable and has been proning as long as she can Clinically a little bit better today Repeat chest x-ray showed no significant improvement of the pneumonia on 07/07/2021 Clinically better but is still requiring high flow oxygen We will continue current management and give small dose of Lasix again today #. Chronic medical conditions: GERD/hypertension Resume home meds No pulmonary embolism on CTA DVT prophylaxis Heparin subcu Full code Patient's requesting updates from providers. Mr. Earle Burgos, contact number [phone]. Admission and Anticipated Discharge Date Admission Date: July 02, 2021 Subjective 07/06/2021 The patient was seen and examined in telemetry unit and in the Covid room She has been feeling a little better but is still requiring high flow nasal cannula to maintain saturation She has been proning as needed and as far as she can 07/07/2021 The patient was seen and examined in telemetry unit and in the Covid room She has been feeling a little better though she has had a setback last night Still has cough and moderate shortness of breath at rest 07/08/2021 The patient was seen and examined in telemetry unit and in the Covid room She has been feeling a little better but is still requiring high flow oxygen to maintain saturation Denies any chest pain, palpitation, any abdominal pain, nausea and or vomiting Review of Systems Review of Systems: All systems reviewed and are unremarkable except as noted below Respiratory: Mild to moderate respiratory distress at rest Physical Exam Physical Exam: Lying in bed with moderate respiratory distress Constitutional: well developed, well nourished, + ill appearing and average body habitus Eyes: PERRL, conjunctivae normal, anicteric sclerae ENMT: external ear and nose normal, oropharynx normal Neck: trachea midline, no thyromegaly Respiratory: + respiratory distress and + cough Auscultation: + diminished lung sounds and + crackles (At the bases) Cardiovascular: Rate/Rhythm: regular rate and regular rhythm; not tachycardic Heart Sounds: normal S1 and normal S2; no murmur Extremities: no edema Gastrointestinal (Abdomen): Inspection/Auscultation: normal bowel sounds; abdomen not distended Percussion/Palpation: abdomen soft; abdomen nontender Neurologic: Alert, awake and oriented x3 Lymphatic: no cervical or axillary lymphadenopathy Results & Data Results & Data ([facility]) Vital Signs (Past 12 Hours) Vital Signs Temp Pulse Pulse Resp BP Pulse Ox Pulse Ox 07/08/21 11:54 71 18 95 07/08/21 11:48 37.1 C 77 20 154/73 H 95 07/08/21 08:00 90 07/08/21 07:39 36.9 C 66 18 161/82 H 91 07/08/21 06:21 37.2 C 79 16 169/99 H 96 07/08/21 06:16 69 18 97 07/08/21 02:46 67 20 95 Laboratory Results Short CBC 07/08/21 Range/Units 06:07 WBC 16.79 H (4.8-10.8) K/uL Hgb 13.8 (12.0-16.0) g/dL Hct 41.4 (37-47) % Plt Count 656 H (130-400) K/uL BMP 07/08/21 06:07 Sodium 135 L Potassium 4.2 Chloride 100 Carbon Dioxide 31 BUN 43 H Creatinine 1.00 Glucose 110 H Calcium 9.6 Liver Function 07/08/21 Range/Units 06:07 Total Bilirubin 0.5 (0.2-1) mg/dl AST 21 (15-37) U/L ALT 22 (12-78) U/L Alkaline Phosphatase 74 (45-117) U/L Albumin 2.2 L (3.4-5.0) gm/dl Medications Administered Current Inpatient Medications Acetaminophen (Acetaminophen 325 Mg Tab) 650 mg PO Q4H PRN PRN Reason: Pain or Fever Stop: 08/01/21 21:59 Last Admin: 07/07/21 21:28 Dose: 650 mg Documented by: Amlodipine Besylate (Amlodipine Besylate 5 Mg Tab) 5 mg PO QAM [facility] Stop: 08/06/21 09:59 Last Admin: 07/08/21 08:44 Dose: 5 mg Documented by: Baricitinib (Baricitinib 2 Mg Tab) 4 mg PO DAILY [facility] Stop: 07/17/21 08:59 Last Admin: 07/08/21 08:58 Dose: 4 mg Documented by: Cyanocobalamin (Cyanocobalamin (Vitamin B-12) 2,500 Mcg Tab.Subl) 2,500 mcg SL QAM NAKIA Stop: 08/02/21 08:59 Last Admin: 07/08/21 08:45 Dose: 2,500 mcg Documented by: Dextrose (Dextrose 50% 50 Ml Syringe) 25 - 50 ml IV UD PRN; Protocol PRN Reason: Hypoglycemia Protocol Stop: 08/03/21 09:55 Escitalopram Oxalate (Escitalopram Oxalate 10 Mg Tab) 5 mg PO DAILY NAKIA Stop: 08/02/21 08:59 Last Admin: 07/08/21 08:45 Dose: 5 mg Documented by: Fluticasone Propionate (Fluticasone Propionate Na Spr 16 Gm Btl) 1 sprays NA QAM NAKIA Stop: 08/02/21 08:59 Last Admin: 07/08/21 08:48 Dose: 1 sprays Documented by: Glucagon (Glucagon For Inj 1 Mg Vial) 1 mg SQ UD PRN; Protocol PRN Reason: Hypoglycemia Protocol Stop: 08/03/21 09:55 Glucose (Glucose 10 Tabs/Tube) 4 - 8 tabs PO UD PRN; Protocol PRN Reason: Hypoglycemia Protocol Stop: 08/03/21 09:55 Glucose (Glucose 40% Gel 15 Gm Tube) 15 - 30 gm PO UD PRN; Protocol PRN Reason: Hypoglycemia Protocol Stop: 08/03/21 09:55 Heparin Sodium (Porcine) (Heparin Sod 5,000 Unit/0.5 Ml Vial) 5,000 units SQ Q8 NAKIA Stop: 08/01/21 21:59 Last Admin: 07/08/21 06:31 Dose: 5,000 units Documented by: Promethazine HCl 12.5 mg/ (Sodium Chloride) 50.5 mls @ 202 mls/hr IV Q6H PRN PRN Reason: Nausea And Vomiting Stop: 08/01/21 21:59 Dexamethasone 20 mg/ Dextrose 30 mls @ 60 mls/hr IV DAILY NAKIA Stop: 07/18/21 09:29 Insulin Aspart (Insulin Aspart 100 Units/Ml 3 Ml Pen) 0 units SC ACHS [facility]; Protocol Stop: 08/03/21 11:29 Last Admin: 07/08/21 13:24 Dose: 11 units Documented by: Ipratropium [place] (Ipratropium [place] Neb Soln 0.02% 2.5 Ml Vial) 0.5 mg INH Q4H PRN PRN Reason: sob/wheezing Stop: 08/01/21 21:59 Levalbuterol HCl (Levalbuterol 1.25mg/0.5ml Neb) 1.25 mg INH Q4H PRN PRN Reason: sob/wheezing Stop: 08/01/21 21:59 Loratadine (Loratadine 10 Mg Tab) 10 mg PO DAILY [facility] Stop: 08/02/21 08:59 Last Admin: 07/08/21 08:47 Dose: 10 mg Documented by: Miscellaneous (Carbohydrates For Hypoglycemia ) 15 - 30 gm PO UD PRN PRN Reason: Hypoglycemia Protocol Stop: 08/03/21 09:55 Miscellaneous Information (Pharmacy Glycemic Mgmt Consult) 1 ea N/A UD PRN; Protocol PRN Reason: Consult Stop: 08/03/21 09:55 Montelukast Sodium (Montelukast Sodium 10 Mg Tablet) 10 mg PO QAM [facility] Stop: 08/02/21 08:59 Last Admin: 07/08/21 08:50 Dose: 10 mg Documented by: Multivitamins (Multivitamin Tab) 1 tab PO DAILY [facility] Stop: 08/02/21 08:59 Last Admin: 07/08/21 08:48 Dose: 1 tab Documented by: Oxycodone HCl (Oxycodone Hcl Ir 5 Mg Tab (Immediate Release)) 5 mg PO Q4H PRN PRN Reason: Pain Stop: 07/16/21 21:59 Last Admin: 07/08/21 13:13 Dose: 5 mg Documented by: Pantoprazole Sodium (Pantoprazole 40 Mg Tab) 40 mg PO DAILY NAKIA Stop: 08/02/21 08:59 Last Admin: 07/08/21 08:47 Dose: 40 mg Documented by:
[2021-07-08] MEDS: ACETAMINOPHEN 325 MG TAB PO PRN (20:30)
[2021-07-09] MEDS: HEPARIN SOD 5,000 UNIT/0.5 ML VIAL SQ SCH ×3 (06:27→21:25)
[2021-07-09] MEDS: dexAMETHasone 20 MG in DEXTROSE 5% 25 ML IV SCH (08:48)
[2021-07-09] MEDS: BARICITINIB 2 MG TAB PO SCH (08:51)
[2021-07-09] MEDS: ESCITALOPRAM OXALATE 10 MG TAB PO SCH (08:51)
[2021-07-09] MEDS: MONTELUKAST SODIUM 10 MG TABLET PO SCH (08:52)
[2021-07-09] MEDS: LORATADINE 10 MG TAB PO SCH (08:53)
[2021-07-09] MEDS: MULTIVITAMIN TAB PO SCH (08:53)
[2021-07-09] MEDS: PANTOprazole 40 MG TAB PO SCH (08:53)
[2021-07-09] MEDS: CYANOCOBALAMIN (VITAMIN B-12) 2,500 MCG TAB.SUBL SL SCH (08:54)
[2021-07-09] MEDS: FLUTICASONE PROPIONATE NA SPR 16 GM BTL SCH (08:54)
[2021-07-09] MEDS: amLODIPine BESYLATE 5 MG TAB PO SCH (08:54)
[2021-07-09] MEDS ORDERED: dexAMETHasone 20 MG in SYRINGE 0 ML IV SCH (09:00)
[2021-07-09] MEDS: INSULIN ASPART 100 UNITS/ML 3 ML PEN SC SCH ×4 (09:02→21:25)
--- NOTE | 2021-07-09 12:01 | Pulmonology Progress Note ---
Date of Service July 09, 2021 Assessment & Plan (1) Acute hypoxemic respiratory failure: (2) Pneumonia due to 2019 novel coronavirus: (3) Hypoxia: Plan: Impression: 56-year-old female not vaccinated for Covid presenting with acute Covid pneumonia and hypoxemic respiratory failure. She has been able to be weaned down a little bit on her oxygen requirement over the last 24 hours and appears less dyspneic and tachypneic today. Recommendations: 1. Covid pneumonia: Yesterday increase dexamethasone to 20 mg a day. She is day 2 today out of an anticipated 5-day course followed by 10 mg a day for 5 days. Recommend continuing baricitinib and follow clinically. She is at increased risk of clinical deterioration on dual anti-inflammatory agents however I think the potential risk outweighs the benefit. 2. Hypoxemic respiratory failure: She is stable on high flow oxygen currently. Continue to wean as tolerated 3. No evidence of PE on CT angiogram. Continue DVT prophylaxis. Advised the patient that we have seen a little bit of progress over the last 24 hours and hopefully we can string this together for several days. She expressed understanding and will continue to try to pursue positional therapy in the decubitus position is much as possible. Admission and Anticipated Discharge Date Admission Date: July 02, 2021 Subjective Patient seen and examined. EMR reviewed. The patient appears slightly better today. Her oxygenation is improved and she is less tachypneic. She denies significant coughing or wheezing. She is able to tolerate a diet. No aspiration events. No chest pain palpitations or lower extremity edema. Review of Systems Review of Systems: All systems reviewed & are unremarkable except as noted in HPI & below Physical Exam Constitutional: WD/WN, vitals as above Neck: trachea midline, no thyromegaly Respiratory: no respiratory distress Cardiovascular: RRR, no murmur, no edema Gastrointestinal (Abdomen): normal bowel sounds, soft, nontender, no hepatosplenomegaly Musculoskeletal: Extremities: extremities normal to inspection Skin: no rashes, warm and dry Lymphatic: no cervical lymphadenopathy Results & Data Results & Data ([facility]) Vital Signs (Past 12 Hours) Vital Signs Temp Pulse Pulse Pulse Resp BP BP 07/09/21 10:59 86 16 07/09/21 08:41 36.7 C 95 H 20 123/92 07/09/21 08:00 07/09/21 07:17 82 07/09/21 05:55 69 14 07/09/21 04:21 36.7 C 78 20 137/90 07/09/21 03:25 88 12 07/09/21 00:00 74 Pulse Ox Pulse Ox 07/09/21 10:59 90 07/09/21 08:41 88 L 07/09/21 08:00 88 L 07/09/21 07:17 07/09/21 05:55 93 07/09/21 04:21 92 07/09/21 03:25 92 07/09/21 00:00 Laboratory Results 07/08/21 06:07 07/08/21 06:07 Diagnostic Findings No new imaging PG Care Time/CCT Total # of Minutes Spent Total Time Spent with Patient: Total time spent is greater than 50% in coordination of care (as documented) at patient's floor/unit and/or counseling patient: Coding Level of Care Code 47399 Subseq Hosp Care Lvl 2 Diagnoses Acute hypoxemic respiratory failure J96.01 Pneumonia due to 2019 novel coronavirus U07.1; J12.82 Hypoxia R09.02
--- NOTE | 2021-07-09 14:49 | Hospitalist Progress Note ---
Date of Service July 09, 2021 Assessment & Plan (1) Acute hypoxemic respiratory failure: Plan: 56-year-old lady with PMH significant for hypertension, celiac disease, NAFLD presented 07/02 to our ED with complaint of shortness of breathworsening secondary to recent diagnosis of Covid positive at primary care office. She is being managed for the following: #. Covid pneumonia-did not receive the vaccine #. Acute hypoxemic respiratory failure. 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 Patient requiring very high flow oxygen. Continue oxygen [high flow and CPAP], wean as tolerated, prone position as able, continue dexamethasone, continue with flutter valve and incentive spirometry. Continue heparin. Dexamethasone 07/02- Remdesivir 1 dose on 07/02, discontinued 07/03 Baricitinib 07/03 Patient updated about the plan of care and expectation/prognosis associated with Covid treatment. Pulmonology consulted: Recommends discontinuing remdesivir and patient is candidate for baricitinib and hence is started on it. I/Os so far +98 mL, use as needed Lasix to keep her on graphite pan drier tender side. Pro-BNP level 520, pro-Milad negative. Negative for pulmonary embolism Encouraged to use flutter valve and incentive spirometry while awake. Minimally improved as of today, if the condition gets worse may need intubation and mechanical ventilation Remains stable and has been proning as long as she can Clinically a little bit better today Repeat chest x-ray showed no significant improvement of the pneumonia on 07/07/2021 Clinically better but is still requiring high flow oxygen Dexamethasone doses have been increased to 20 mg daily from 07/08/2021 to be continued for 5 days and after that 10 mg daily for 5 days. Continue baricitinib for 14 days Continue to wean off as tolerated #. Chronic medical conditions: GERD/hypertension Resume home meds No pulmonary embolism on CTA DVT prophylaxis Heparin subcu Full code Patient's requesting updates from providers. Mr. Earle Burgos, contact number [phone]. Admission and Anticipated Discharge Date Admission Date: July 02, 2021 Subjective 07/06/2021 The patient was seen and examined in telemetry unit and in the Covid room She has been feeling a little better but is still requiring high flow nasal cannula to maintain saturation She has been proning as needed and as far as she can 07/07/2021 The patient was seen and examined in telemetry unit and in the Covid room She has been feeling a little better though she has had a setback last night Still has cough and moderate shortness of breath at rest 07/08/2021 The patient was seen and examined in telemetry unit and in the Covid room She has been feeling a little better but is still requiring high flow oxygen to maintain saturation Denies any chest pain, palpitation, any abdominal pain, nausea and or vomiting 07/09/2021 The patient was seen and examined in telemetry unit and in the Covid room She has been feeling a little bit better and is still requiring 50 L of oxygen with 80% FiO2 to maintain saturation Has cough and weakness Review of Systems Review of Systems: All systems reviewed and are unremarkable except as noted below Respiratory: Mild to moderate respiratory distress at rest Physical Exam Physical Exam: Lying in bed with moderate respiratory distress Constitutional: well developed, well nourished, + ill appearing and average body habitus Eyes: PERRL, conjunctivae normal, anicteric sclerae ENMT: external ear and nose normal, oropharynx normal Neck: trachea midline, no thyromegaly Respiratory: + respiratory distress and + cough Auscultation: + diminished lung sounds and + crackles (At the bases) Cardiovascular: Rate/Rhythm: regular rate and regular rhythm; not tachycardic Heart Sounds: normal S1 and normal S2; no murmur Extremities: no edema Gastrointestinal (Abdomen): Inspection/Auscultation: normal bowel sounds; abdomen not distended Percussion/Palpation: abdomen soft; abdomen nontender Musculoskeletal: No acute arthritis in any joint Neurologic: Alert, awake and oriented x3. Generally weak but no focal sensory and motor deficit appreciated Lymphatic: no cervical or axillary lymphadenopathy Results & Data Results & Data ([facility]) Vital Signs (Past 12 Hours) Vital Signs Temp Pulse Pulse Pulse Resp BP BP 07/09/21 14:27 37.0 C 73 24 132/61 07/09/21 10:59 86 16 07/09/21 08:41 36.7 C 95 H 20 123/92 07/09/21 08:00 07/09/21 07:17 82 07/09/21 05:55 69 14 07/09/21 04:21 36.7 C 78 20 137/90 07/09/21 03:25 88 12 Pulse Ox Pulse Ox 07/09/21 14:27 92 07/09/21 10:59 90 07/09/21 08:41 88 L 07/09/21 08:00 88 L 07/09/21 07:17 07/09/21 05:55 93 07/09/21 04:21 92 07/09/21 03:25 92 Diagnostic Findings Current Inpatient Medications Acetaminophen (Acetaminophen 325 Mg Tab) 650 mg PO Q4H PRN PRN Reason: Pain or Fever Stop: 08/01/21 21:59 Last Admin: 07/08/21 20:30 Dose: 650 mg Documented by: Amlodipine Besylate (Amlodipine Besylate 5 Mg Tab) 5 mg PO QAM [facility] Stop: 08/06/21 09:59 Last Admin: 07/09/21 08:54 Dose: 5 mg Documented by: Baricitinib (Baricitinib 2 Mg Tab) 4 mg PO DAILY [facility] Stop: 07/17/21 08:59 Last Admin: 07/09/21 08:51 Dose: 4 mg Documented by: Cyanocobalamin (Cyanocobalamin (Vitamin B-12) 2,500 Mcg Tab.Subl) 2,500 mcg SL QAM [facility] Stop: 08/02/21 08:59 Last Admin: 07/09/21 08:54 Dose: 2,500 mcg Documented by: Dextrose (Dextrose 50% 50 Ml Syringe) 25 - 50 ml IV UD PRN; Protocol PRN Reason: Hypoglycemia Protocol Stop: 08/03/21 09:55 Escitalopram Oxalate (Escitalopram Oxalate 10 Mg Tab) 5 mg PO DAILY [facility] Stop: 08/02/21 08:59 Last Admin: 07/09/21 08:51 Dose: 5 mg Documented by: Fluticasone Propionate (Fluticasone Propionate Na Spr 16 Gm Btl) 1 sprays NA QAM [facility] Stop: 08/02/21 08:59 Last Admin: 07/09/21 08:54 Dose: 1 sprays Documented by: Glucagon (Glucagon For Inj 1 Mg Vial) 1 mg SQ UD PRN; Protocol PRN Reason: Hypoglycemia Protocol Stop: 08/03/21 09:55 Glucose (Glucose 10 Tabs/Tube) 4 - 8 tabs PO UD PRN; Protocol PRN Reason: Hypoglycemia Protocol Stop: 08/03/21 09:55 Glucose (Glucose 40% Gel 15 Gm Tube) 15 - 30 gm PO UD PRN; Protocol PRN Reason: Hypoglycemia Protocol Stop: 08/03/21 09:55 Heparin Sodium (Porcine) (Heparin Sod 5,000 Unit/0.5 Ml Vial) 5,000 units SQ Q8 NAKIA Stop: 08/01/21 21:59 Last Admin: 07/09/21 14:23 Dose: 5,000 units Documented by: Promethazine HCl 12.5 mg/ (Sodium Chloride) 50.5 mls @ 202 mls/hr IV Q6H PRN PRN Reason: Nausea And Vomiting Stop: 08/01/21 21:59 Dexamethasone 20 mg/ Dextrose 30 mls @ 60 mls/hr IV DAILY NAKIA Stop: 07/18/21 09:29 Last Infusion: 07/09/21 09:20 Dose: Infused Documented by: Insulin Aspart (Insulin Aspart 100 Units/Ml 3 Ml Pen) 0 units SC ACHS [facility]; Protocol Stop: 08/03/21 11:29 Last Admin: 07/09/21 14:21 Dose: 9 units Documented by: Ipratropium [place] (Ipratropium [place] Neb Soln 0.02% 2.5 Ml Vial) 0.5 mg INH Q4H PRN PRN Reason: sob/wheezing Stop: 08/01/21 21:59 Levalbuterol HCl (Levalbuterol 1.25mg/0.5ml Neb) 1.25 mg INH Q4H PRN PRN Reason: sob/wheezing Stop: 08/01/21 21:59 Loratadine (Loratadine 10 Mg Tab) 10 mg PO DAILY NAKIA Stop: 08/02/21 08:59 Last Admin: 07/09/21 08:53 Dose: 10 mg Documented by: Miscellaneous (Carbohydrates For Hypoglycemia ) 15 - 30 gm PO UD PRN PRN Reason: Hypoglycemia Protocol Stop: 08/03/21 09:55 Miscellaneous Information (Pharmacy Glycemic Mgmt Consult) 1 ea N/A UD PRN; Protocol PRN Reason: Consult Stop: 08/03/21 09:55 Montelukast Sodium (Montelukast Sodium 10 Mg Tablet) 10 mg PO QAM [facility] Stop: 08/02/21 08:59 Last Admin: 07/09/21 08:52 Dose: 10 mg Documented by: Multivitamins (Multivitamin Tab) 1 tab PO DAILY [facility]AKIA Stop: 08/02/21 08:59 Last Admin: 07/09/21 08:53 Dose: 1 tab Documented by: Oxycodone HCl (Oxycodone Hcl Ir 5 Mg Tab (Immediate Release)) 5 mg PO Q4H PRN PRN Reason: Pain Stop: 07/16/21 21:59 Last Admin: 07/08/21 20:30 Dose: 5 mg Documented by: Pantoprazole Sodium (Pantoprazole 40 Mg Tab) 40 mg PO DAILY [facility]AKIA Stop: 08/02/21 08:59 Last Admin: 07/09/21 08:53 Dose: 40 mg Documented by:
[2021-07-10] MEDS: HEPARIN SOD 5,000 UNIT/0.5 ML VIAL SQ SCH (06:24)
[2021-07-10 06:34] LABS: Basophils # (auto) 0.01 K/uL (0-0.2); Basophils % (auto) 0.1 %; Eosinophils # (auto) 0.02 K/uL (0-0.5); Eosinophils % (auto) 0.1 %; Hematocrit (blood only) 44.7 % (37-47); Hemoglobin 14.6 g/dL (12.0-16.0); Immature Granulocytes # (auto) 0.19 K/uL (0.00-0.02); Immature Granulocytes % (auto) 1.2 %; Lymphocytes # (auto) 0.91 K/uL (1.2-3.4); Lymphocytes % (auto) 5.9 %; Mean Corpuscular Hemoglobin 30.7 pg (25-34); Mean Corpuscular Hgb Conc 32.7 g/dL (32-36); Mean Corpuscular Volume 94.1 fL (80-100); Mean Platelet Volume 10.4 fL (7.4-10.4); Monocytes # (auto) 0.35 K/uL (0.11-0.59); Monocytes % (auto) 2.3 %; Neutrophils % (auto) 90.4 %; Platelet Count 721 K/uL (130-400); RDW Coefficient of Variation 12.6 % (11.5-14.5); RDW Standard Deviation 43.9 fL (36.4-46.3); Red Blood Count 4.75 M/uL (4.2-5.4); White Blood Count 15.38 K/uL (4.8-10.8)
[2021-07-10 07:13] LABS: Albumin Globulin Ratio 0.4 (0.9-2); Albumin Level 2.1 gm/dl (3.4-5.0); BUN Creatinine Ratio 47.1 (10-20); Bilirubin,Total 0.5 mg/dl (0.2-1); C Reactive Protein 5.23 mg/dl (0-0.29); Calcium 9.1 mg/dl (8.5-10.1); Creatinine Clr Calc Pharmacy 57.8 ml/min; Est GFR (African American) 70.2 ml/min; Est GFR (Non-African American) 60.6 ml/min; Potassium 5.2 mmol/L (3.5-5.1); Total Protein 7.1 gm/dl (6.4-8.2)
[2021-07-10] MEDS: INSULIN ASPART 100 UNITS/ML 3 ML PEN SC SCH ×4 (08:52→21:05)
[2021-07-10] MEDS: FLUTICASONE PROPIONATE NA SPR 16 GM BTL SCH (08:53)
[2021-07-10] MEDS: PANTOprazole 40 MG TAB PO SCH (08:54)
[2021-07-10] MEDS: ESCITALOPRAM OXALATE 10 MG TAB PO SCH (08:54)
[2021-07-10] MEDS: amLODIPine BESYLATE 5 MG TAB PO SCH (08:55)
[2021-07-10] MEDS: MONTELUKAST SODIUM 10 MG TABLET PO SCH (08:55)
[2021-07-10] MEDS: MULTIVITAMIN TAB PO SCH (08:56)
[2021-07-10] MEDS: CYANOCOBALAMIN (VITAMIN B-12) 2,500 MCG TAB.SUBL SL SCH (08:56)
[2021-07-10] MEDS: LORATADINE 10 MG TAB PO SCH (08:57)
[2021-07-10] MEDS: dexAMETHasone 20 MG in DEXTROSE 5% 25 ML IV SCH (10:46)
[2021-07-10] MEDS: BARICITINIB 2 MG TAB PO SCH (11:24)
--- NOTE | 2021-07-10 13:02 | Hospitalist Progress Note ---
Date of Service July 10, 2021 Assessment & Plan (1) Acute hypoxemic respiratory failure: Plan: Patient is a 56 yr female with H/o hypertension, celiac disease, NAFLD presented 07/02 to our ED with complaint of shortness of breathworsening secondary to recent diagnosis of Covid positive at primary care office. Acute hypoxemic respiratory failure COVID 19 Pneumonia --CTA:There is no evidence of pulmonary embolus in the main, lobar, or segmental pulmonary arteries. Multifocal airspace consolidation is consistent with the reported history of a viral pneumonia. Radiographic follow-up to resolution is recommended. Enlarged mediastinal and hilar nodes are likely reactive. 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 Received Remdesivir 1 dose on 07/02/21 Continue Baricitinib Day 05/06 Continue dexamethasone as recommended by pulmonology Dexamethasone doses have been increased to 20 mg daily from 07/08/2021 to be continued for 5 days and after that 10 mg daily for 5 day Appreciate pulmonary input Lasix, Nebs PRN Continue Pulmonary Hygiene Encourage to prone as able Hypertension GERD Mood disorder Continue home meds DVT Px: Lovenox SQ Code Status Full code Admission and Anticipated Discharge Date Admission Date: July 02, 2021 Subjective Patient is seen and examined at bedside Denies any significant cough Reports having dyspnea on exertion Also denies nausea, vomiting, abdominal pain, diarrhea, dizziness Currently on high flow oxygen Offers no other complaints Review of Systems Review of Systems: All systems reviewed & are unremarkable except as noted in Subjective Physical Exam Physical Exam: Physical Exam: Vitals signs as noted above General Appearance:Moderately built and nourished, no apparent distress Head: normocephalic, Atraumatic Eyes: normal inspection, EOMI Neck: supple, Trachea midline Respiratory/Chest:Decreased breath sounds, CTA Cardiovascular: S1, S2, No murmur Abdomen/GI:Soft, Non tender, Bowel sounds present Extremities/Musculoskeletal:normal inspection, no edema Neurologic/Psych:AAOX3, grossly no focal neurological deficits Skin: normal color, warm Results & Data Results & Data ([facility]) Vital Signs (Past 12 Hours) Vital Signs Temp Pulse Pulse Pulse Resp BP BP 07/10/21 11:34 36.5 C 79 21 123/73 07/10/21 10:56 82 20 07/10/21 08:00 63 07/10/21 06:54 36.6 C 66 21 134/88 07/10/21 05:43 77 20 07/10/21 04:00 37.4 C 66 18 148/80 H 07/10/21 01:50 63 14 Pulse Ox Pulse Ox 07/10/21 11:34 88 L 07/10/21 10:56 72 L 07/10/21 08:00 90 07/10/21 06:54 88 L 07/10/21 05:43 94 07/10/21 04:00 94 07/10/21 01:50 96 Laboratory Results Short CBC 07/10/21 Range/Units 05:42 WBC 15.38 H (4.8-10.8) K/uL Hgb 14.6 (12.0-16.0) g/dL Hct 44.7 (37-47) % Plt Count 721 H (130-400) K/uL BMP 07/10/21 05:42 Sodium 136 Potassium 5.2 H D Chloride 100 Carbon Dioxide 30 BUN 48 H Creatinine 1.02 Glucose 107 H Calcium 9.1 Liver Function 07/10/21 Range/Units 05:42 Total Bilirubin 0.5 (0.2-1) mg/dl AST 31 (15-37) U/L ALT 40 (12-78) U/L Alkaline Phosphatase 68 (45-117) U/L Albumin 2.1 L (3.4-5.0) gm/dl
--- NOTE | 2021-07-10 13:30 | Pharmacy Report ---
Pharmacy Glycemic Short Note 2 - Date of Service July 10, 2021 - Glycemic Short BSG Results (Last 24 hours): 07/09/21 07/09/21 07/10/21 17:04 20:13 05:42 Glucose 107 H POC Glucose 125 H 142 H 07/10/21 07/10/21 07:40 11:31 Glucose POC Glucose 97 178 H OUTPATIENT ANTIDIABETIC REGIMEN: * None * HbA1c 6.8% on 07/02/21 ASSESSMENT: 07/10 * Patient's BSGs yesterday [phone] mg/dL * Dexamethasone increased to 20 mg daily, anticipate for 5 days then taper * Fasting today 97 mg/dL- continue to hold lantus * will continue current novolog parameters 07/08 * Patient's BSGs yesterday were [phone] mg/dL. Patient received 8 units of insulin (0 units of basal and 8 units of bolus). * Fasting today was 97 mg/dL. * Continue to hold Lantus. * BSGs trend up throughout the day so tighten CR as this is primarily affected by steroids. 07/07 * Stressors stable * Patient received 8 units of prandial/correctional insulin with adequate control * Fasting 91 mg/dL, will continue to hold basal for now * No change to novolog. 07/06 * Stressors stable * Patient received 11 units of insulin yesterday (10 basal, 1 bolus), with BSG's ranging 92-148 mg/dL * AM fasting BSG well below goal range despite minimal basal insulin yesterday - will hold * Post-prandial BSG's yesterday good although po intake poor - no change to Novolog 07/05 * Stressors stable * AM fasting BSG below goal range - will significantly reduce NPH * Post-prandial BSG's yesterday good - no change to Novolog 07/04 * 56 yo F with new diagnosis of diabetes admitted with COVID-19 and on steroids * Pharmacy consulted on day 3 of admission. AM random BSG's have ranged 140-176 mg/dL over the last 3 days * Will start NPH to mimic PK of dexamethasone, but will not be aggressive as AM fasting this AM is in goal range without basal insulin (although at the upper end of goal) * Will start Novolog ACHS between weight-based moderate to severe stress estimate. Will adjust based on trend in BSG's PLAN FOR INPATIENT GLYCEMIC CONTROL: * Basal insulin * hold * Bolus insulin * NovoLog per scale ACHS or Q6hrs while NPO * Goal Range: Low 110 mg/dL - High 140 mg/dL * Correction Factor: 25 mg/dL/unit * Nutritional / Prandial insulin per carb ratio of 1 unit per 5 grams CHO consumed PLAN FOR DISCHARGE: * see note from 07/06
--- NOTE | 2021-07-10 14:12 | Pulmonology Progress Note ---
Date of Service July 10, 2021 Assessment & Plan (1) Acute hypoxemic respiratory failure: (2) Pneumonia due to 2019 novel coronavirus: (3) Hypoxia: Plan: Impression: 56-year-old female not vaccinated for Covid presenting with acute Covid pneumonia and hypoxemic respiratory failure. She has been able to be weaned down a little bit on her oxygen requirement over the last 24 hours and appears less dyspneic and tachypneic today. Recommendations: 1. Covid pneumonia: Currently on late-phase ARDS dexamethasone at 20 mg a day. She is day 3 today out of an anticipated 5-day course followed by 10 mg a day for 5 days. Recommend continuing baricitinib and follow clinically. She is at increased risk of clinical deterioration on dual anti-inflammatory agents however I think the potential risk outweighs the benefit. 2. Hypoxemic respiratory failure: She is stable on high flow oxygen currently. Continue to wean as tolerated 3. No evidence of PE on CT angiogram. Continue DVT prophylaxis. Continue to follow clinically. Slight progress over the last 48 hours Admission and Anticipated Discharge Date Admission Date: July 02, 2021 Subjective Patient seen and examined. EMR reviewed. She appears about the same. She continues to be frustrated by her perceived lack of clinical progress. No other new complaints such as fevers chills or night sweats. No cough or sputum production. She is tolerating diet Review of Systems Review of Systems: All systems reviewed & are unremarkable except as noted in Subjective Physical Exam Constitutional: WD/WN, vitals as above Neck: trachea midline, no thyromegaly Respiratory: + labored breathing and + tachypneic; no respiratory distress Cardiovascular: RRR, no murmur, no edema Gastrointestinal (Abdomen): normal bowel sounds, soft, nontender, no hepatosplenomegaly Musculoskeletal: Extremities: extremities normal to inspection Skin: no rashes, warm and dry Lymphatic: no cervical lymphadenopathy Results & Data Results & Data ([facility]) Vital Signs (Past 12 Hours) Vital Signs Temp Pulse Pulse Pulse Resp BP BP 07/10/21 11:34 36.5 C 79 21 123/73 07/10/21 10:56 82 20 07/10/21 08:00 63 07/10/21 06:54 36.6 C 66 21 134/88 07/10/21 05:43 77 20 07/10/21 04:00 37.4 C 66 18 148/80 H Pulse Ox Pulse Ox 07/10/21 11:34 88 L 07/10/21 10:56 72 L 07/10/21 08:00 90 07/10/21 06:54 88 L 07/10/21 05:43 94 07/10/21 04:00 94 Laboratory Results 07/10/21 05:42 07/10/21 05:42 Diagnostic Findings No new imaging PG Care Time/CCT Total # of Minutes Spent Total Time Spent with Patient: Total time spent is greater than 50% in coordination of care (as documented) at patient's floor/unit and/or counseling patient: Coding Level of Care Code 91524 Subseq Hosp Care Lvl 2 Diagnoses Acute hypoxemic respiratory failure J96.01 Pneumonia due to 2019 novel coronavirus U07.1; J12.82 Hypoxia R09.02
[2021-07-10] MEDS: ENOXAPARIN INJ 40 MG/0.4 ML SYR SQ SCH (15:18)
[2021-07-10] MEDS: oxyCODONE HCL IR 5 MG TAB (IMMEDIATE RELEASE) PO PRN (22:16)
[2021-07-11 07:01] LABS: BUN Creatinine Ratio 44.3 (10-20); Calcium 9.5 mg/dl (8.5-10.1); Creatinine Clr Calc Pharmacy 59.8 ml/min; Est GFR (African American) 73.7 ml/min; Est GFR (Non-African American) 63.6 ml/min; Potassium 4.6 mmol/L (3.5-5.1)
[2021-07-11] MEDS ORDERED: FUROSEMIDE 20 MG in SYRINGE 0 ML IV ONE (07:46)
[2021-07-11] MEDS ORDERED: FUROSEMIDE 40 MG/4 ML VIAL IV ONE (08:00)
[2021-07-11] MEDS: MULTIVITAMIN TAB PO SCH (09:00)
[2021-07-11] MEDS: ESCITALOPRAM OXALATE 10 MG TAB PO SCH (09:01)
[2021-07-11] MEDS: LORATADINE 10 MG TAB PO SCH (09:01)
[2021-07-11] MEDS: PANTOprazole 40 MG TAB PO SCH (09:01)
[2021-07-11] MEDS: amLODIPine BESYLATE 5 MG TAB PO SCH (09:02)
[2021-07-11] MEDS: CYANOCOBALAMIN (VITAMIN B-12) 2,500 MCG TAB.SUBL SL SCH (09:02)
[2021-07-11] MEDS: MONTELUKAST SODIUM 10 MG TABLET PO SCH (09:02)
[2021-07-11] MEDS: ENOXAPARIN INJ 40 MG/0.4 ML SYR SQ SCH (09:03)
[2021-07-11] MEDS: FLUTICASONE PROPIONATE NA SPR 16 GM BTL SCH (09:03)
[2021-07-11] MEDS: INSULIN ASPART 100 UNITS/ML 3 ML PEN SC SCH ×4 (09:13→20:34)
[2021-07-11] MEDS: BARICITINIB 2 MG TAB PO SCH (09:24)
[2021-07-11] MEDS: dexAMETHasone 20 MG in DEXTROSE 5% 25 ML IV SCH (09:28)
--- NOTE | 2021-07-11 09:39 | Pulmonology Progress Note ---
Date of Service July 11, 2021 Assessment & Plan (1) Acute hypoxemic respiratory failure: (2) Pneumonia due to 2019 novel coronavirus: (3) Hypoxia: Plan: Impression: 56-year-old female not vaccinated for Covid presenting with acute Covid pneumonia and hypoxemic respiratory failure. She has been able to be weaned down a little bit on her oxygen requirement over the last 24 hours and appears less dyspneic and tachypneic today. Recommendations: 1. Covid pneumonia: Currently on late-phase ARDS dexamethasone at 20 mg a day. She is day 4 today out of an anticipated 5-day course followed by 10 mg a day for 5 days. Recommend continuing baricitinib and follow clinically. Appears to be making some small degrees of progress with regards to her tachypnea and oxyg en requirement. 2. Hypoxemic respiratory failure: She is stable on high flow oxygen currently. Continue to wean as tolerated 3. No evidence of PE on CT angiogram. Continue DVT prophylaxis. Patient is making some progress which is encouraging. We will follow intermittently to ensure that she is on appropriate track. Feel free to contact us if she should deteriorate Admission and Anticipated Discharge Date Admission Date: July 02, 2021 Subjective Patient seen and examined. EMR reviewed. Patient appears to be making some clinical progress at this point time. Her oxygen requirement is decreased. She is less tachypneic. She is not coughing. She is been out of bed to the chair. Is not experiencing any chest pain. Review of Systems Review of Systems: All systems reviewed & are unremarkable except as noted in Subjective Physical Exam Constitutional: WD/WN, vitals as above Neck: trachea midline, no thyromegaly Respiratory: no respiratory distress Cardiovascular: RRR, no murmur, no edema Gastrointestinal (Abdomen): normal bowel sounds, soft, nontender, no hepatosplenomegaly Musculoskeletal: Extremities: extremities normal to inspection Skin: no rashes, warm and dry Lymphatic: no cervical lymphadenopathy Results & Data Results & [facility] ([facility]) Vital Signs (Past 12 Hours) Vital Signs Temp Pulse Pulse Pulse Resp BP BP 07/11/21 07:06 36.6 C 61 18 131/63 07/11/21 05:45 62 20 07/11/21 03:22 64 20 07/11/21 03:13 36.8 C 95 H 18 143/80 H 07/11/21 00:00 64 07/10/21 22:51 37.0 C 65 21 135/79 07/10/21 22:15 66 20 Pulse Ox 07/11/21 07:06 91 07/11/21 05:45 92 07/11/21 03:22 94 07/11/21 03:13 95 07/11/21 00:00 07/10/21 22:51 98 07/10/21 22:15 87 L Laboratory Results 07/10/21 05:42 07/11/21 06:19 Diagnostic Findings No new imaging PG Care Time/CCT Total # of Minutes Spent Total Time Spent with Patient: Total time spent is greater than 50% in coordination of care (as documented) at patient's floor/unit and/or counseling patient: Coding Level of Care Code 00538 Subseq Hosp Care Lvl 2 Diagnoses Acute hypoxemic respiratory failure J96.01 Pneumonia due to 2019 novel coronavirus U07.1; J12.82 Hypoxia R09.02
--- NOTE | 2021-07-11 16:08 | Hospitalist Progress Note ---
Date of Service July 11, 2021 Assessment & Plan (1) Acute hypoxemic respiratory failure: Plan: Patient is a 56 yr female with H/o hypertension, celiac disease, NAFLD presented 07/02 to our ED with complaint of shortness of breathworsening secondary to recent diagnosis of Covid positive at primary care office. Acute hypoxemic respiratory failure COVID 19 Pneumonia --CTA:There is no evidence of pulmonary embolus in the main, lobar, or segmental pulmonary arteries. Multifocal airspace consolidation is consistent with the reported history of a viral pneumonia. Radiographic follow-up to resolution is recommended. Enlarged mediastinal and hilar nodes are likely reactive. -Symptoms for 10 days [employer]. 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 Received Remdesivir 1 dose on 07/02/21 Continue Baricitinib Day # 06/06 Continue dexamethasone as recommended by pulmonology Dexamethasone doses have been increased to 20 mg daily from 07/08/2021 to be continued for 5 days total and after that 10 mg daily for 5 day Appreciate pulmonary input Lasix, Nebs PRN Continue Pulmonary Hygiene Encourage to prone as able Currently on high flow oxygen Continue current management Hypertension GERD Mood disorder Continue home meds DVT Px: Lovenox SQ Code Status Full code Admission and Anticipated Discharge Date Admission Date: July 02, 2021 Subjective Patient is seen and examined at bedside States feeling better today Reports minimal cough Saturating well on high flow Denies chest pain, nausea, vomiting, abdominal pain, diarrhea, dizziness Review of Systems Review of Systems: All systems reviewed & are unremarkable except as noted in Subjective Physical Exam Physical Exam: Physical Exam: Vitals signs as noted above General Appearance:Moderately built and nourished, no apparent distress Head: normocephalic, Atraumatic Eyes: normal inspection, EOMI Neck: supple, Trachea midline Respiratory/Chest:Decreased breath sounds, CTA Cardiovascular: S1, S2, No murmur Abdomen/GI:Soft, Non tender, Bowel sounds present Extremities/Musculoskeletal:normal inspection, no edema Neurologic/Psych:AAOX3, grossly no focal neurological deficits Skin: normal color, warm Results & Data Results & Data ([facility]) Vital Signs (Past 12 Hours) Vital Signs Temp Pulse Pulse Pulse Resp BP BP 07/11/21 15:35 36.7 C 76 22 133/76 07/11/21 14:45 68 18 07/11/21 11:41 36.5 C 80 24 139/82 07/11/21 10:06 76 18 07/11/21 08:00 58 L 07/11/21 07:06 36.6 C 61 18 131/63 07/11/21 05:45 62 20 Pulse Ox Pulse Ox 07/11/21 15:35 92 07/11/21 14:45 94 07/11/21 11:41 90 07/11/21 10:06 87 L 07/11/21 08:00 90 07/11/21 07:06 91 07/11/21 05:45 92 Laboratory Results [facility] 07/11/21 06:19 Sodium 136 Potassium 4.6 Chloride 101 Carbon Dioxide 30 BUN 43 H Creatinine 0.98 Glucose 107 H Calcium 9.5
[2021-07-12 06:37] LABS: Hematocrit (blood only) 45.5 % (37-47); Mean Corpuscular Hemoglobin 30.9 pg (25-34); Mean Corpuscular Volume 93.8 fL (80-100); Mean Platelet Volume 10.4 fL (7.4-10.4); Platelet Count 867 K/uL (130-400); RDW Coefficient of Variation 12.6 % (11.5-14.5); RDW Standard Deviation 43.6 fL (36.4-46.3); Red Blood Count 4.85 M/uL (4.2-5.4); White Blood Count 16.45 K/uL (4.8-10.8)
[2021-07-12 07:06] LABS: BUN Creatinine Ratio 44.3 (10-20); Calcium 9.3 mg/dl (8.5-10.1); Creatinine Clr Calc Pharmacy 57.1 ml/min; Est GFR (African American) 68.6 ml/min; Est GFR (Non-African American) 59.2 ml/min; Potassium 4.6 mmol/L (3.5-5.1)
--- NOTE | 2021-07-12 08:30 | XRay Report ---
SINGLE VIEW CHEST CLINICAL HISTORY: Covid pneumonia. FINDINGS: An AP, portable, upright chest radiograph is compared to study dated 07/07/2021. The cardi omediastinal silhouette is unremarkable. There is elevation of the right hemidiaphragm. There is pneu momediastinum. Multifocal airspace consolidation is again seen throughout both lungs, most confluent at the lung bases. No large pleural effusion or pneumothorax is identified. The bony thorax is grossl y intact. There is mild thoracolumbar scoliosis. Subcutaneous emphysema in the lower neck is new from previous. IMPRESSION: 1. Multifocal airspace consolidation is consistent with the reported history of a viral pneumonia. Th is has not significantly changed from 07/07/2021. 2. Pneumomediastinum is new from previous. 3. There is subcutaneous emphysema in the lower neck. This is also new from 07/07/2021. 4. No definite pneumothorax is identified. ACT 112: Negative or not required by law. Electronically signed by: Darell Guillen M.D. 07/12/2021 8:28 AM
--- NOTE | 2021-07-12 08:39 | Hospitalist Progress Note ---
Date of Service July 12, 2021 Assessment & Plan (1) Acute hypoxemic respiratory failure: Plan: Patient is a 56 yr female with H/o hypertension, celiac disease, NAFLD presented 07/02 to our ED with complaint of shortness of breathworsening secondary to recent diagnosis of Covid positive at primary care office. Acute hypoxemic respiratory failure COVID 19 Pneumonia --CTA:There is no evidence of pulmonary embolus in the main, lobar, or segmental pulmonary arteries. Multifocal airspace consolidation is consistent with the reported history of a viral pneumonia. Radiographic follow-up to resolution is recommended. Enlarged mediastinal and hilar nodes are likely reactive. -Symptoms for 10 days [employer]. 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 Received Remdesivir 1 dose on 07/02/21 Continue Baricitinib Day # 07/06 Continue dexamethasone as recommended by pulmonology Dexamethasone doses have been increased to 20 mg daily from 07/08/2021 to be continued for 5 days total and after that 10 mg daily for 5 day Appreciate pulmonary input Lasix, Nebs PRN Continue Pulmonary Hygiene Encourage to prone as able Currently on high flow oxygen--55L 70% FiO2 Chest x-ray today showed no significant change in regards to multifocal airspace consolidation. Pneumomediastinum Subcutaneous emphysema -CXR: Multifocal airspace consolidation is consistent with the reported history of a viral pneumonia. This has not significantly changed from 07/07/2021. Pneumomediastinum is new from previous. There is subcutaneous emphysema in the lower neck. This is also new from 07/07/2021. No definite pneumothorax is identified. -Will repeat chest x-ray tomorrow -Avoid positive airway pressure if possible. Thrombocythemia Likely secondary to Baricitinib Monitor Platelet count Hypertension GERD Mood disorder Continue home meds DVT Px: Lovenox SQ Code Status Full code Admission and Anticipated Discharge Date Admission Date: July 02, 2021 Subjective Patient is seen and examined at bedside States having coughing spell overnight Also reports having anxiety overnight but better this morning CXR today showed Pneumomediastinum and subcutaneous emphysema in the lower neck Subjectively feels better this morning Currently on High Flow oxygen Less Cough, denies any significant dyspnea Also denies chest pain, nausea, vomiting, abdominal pain, diarrhea, dizziness Review of Systems Review of Systems: All systems reviewed & are unremarkable except as noted in Subjective Physical Exam Physical Exam: Physical Exam: Vitals signs as noted above General Appearance:Moderately built and nourished, no apparent distress Head: normocephalic, Atraumatic Eyes: normal inspection, EOMI Neck: supple, Trachea midline Respiratory/Chest:Decreased breath sounds, CTA Cardiovascular: S1, S2, No murmur Abdomen/GI:Soft, Non tender, Bowel sounds present Extremities/Musculoskeletal:normal inspection, no edema Neurologic/Psych:AAOX3, grossly no focal neurological deficits Skin: normal color, warm Results & Data Results & Data ([facility]) Vital Signs (Past 12 Hours) Vital Signs Temp Pulse Pulse Resp BP BP Pulse Ox 07/12/21 08:00 07/12/21 07:55 75 20 90 07/12/21 07:02 36.5 C 67 19 155/85 H 91 07/12/21 03:57 36.5 C 75 19 170/96 H 94 07/12/21 03:54 36.5 C 78 18 93 07/12/21 03:39 76 22 92 07/12/21 00:00 68 07/11/21 23:25 68 16 90 07/11/21 23:02 36.5 C 76 19 177/93 H 93 Pulse Ox 07/12/21 08:00 90 07/12/21 07:55 07/12/21 07:02 07/12/21 03:57 07/12/21 03:54 07/12/21 03:39 07/12/21 00:00 07/11/21 23:25 07/11/21 23:02 Laboratory Results Short CBC 07/12/21 Range/Units 05:54 WBC 16.45 H (4.8-10.8) K/uL Hgb 15.0 (12.0-16.0) g/dL Hct 45.5 (37-47) % Plt Count 867 H (130-400) K/uL BMP 07/12/21 05:54 Sodium 136 Potassium 4.6 Chloride 102 Carbon Dioxide 28 BUN 46 H Creatinine 1.04 Glucose 99 Calcium 9.3
[2021-07-12] MEDS: BARICITINIB 2 MG TAB PO SCH (09:03)
[2021-07-12] MEDS: dexAMETHasone 20 MG in DEXTROSE 5% 25 ML IV SCH (09:04)
[2021-07-12] MEDS: amLODIPine BESYLATE 5 MG TAB PO SCH (09:04)
[2021-07-12] MEDS: CYANOCOBALAMIN (VITAMIN B-12) 2,500 MCG TAB.SUBL SL SCH (09:04)
[2021-07-12] MEDS: ENOXAPARIN INJ 40 MG/0.4 ML SYR SQ SCH (09:05)
[2021-07-12] MEDS: ESCITALOPRAM OXALATE 10 MG TAB PO SCH (09:05)
[2021-07-12] MEDS: FLUTICASONE PROPIONATE NA SPR 16 GM BTL SCH (09:06)
[2021-07-12] MEDS: MONTELUKAST SODIUM 10 MG TABLET PO SCH (09:07)
[2021-07-12] MEDS: MULTIVITAMIN TAB PO SCH (09:07)
[2021-07-12] MEDS: LORATADINE 10 MG TAB PO SCH (09:07)
[2021-07-12] MEDS: PANTOprazole 40 MG TAB PO SCH (09:07)
--- NOTE | 2021-07-12 09:10 | Pulmonology Progress Note ---
Date of Service July 12, 2021 Assessment & Plan (1) Acute hypoxemic respiratory failure: (2) Pneumonia due to 2019 novel coronavirus: (3) Hypoxia: (4) Pneumomediastinum: Plan: Impression: 56-year-old female not vaccinated for Covid presenting with acute Covid pneumonia and hypoxemic respiratory failure. She has been able to be weaned down a little bit on her oxygen requirement over the last 24 hours and appears less dyspneic and tachypneic today. Recommendations: 1. Covid pneumonia: Currently on late-phase ARDS dexamethasone at 20 mg a day. She is day 5 today and will transition to 10 mg a day for 5 days starting tomorrow. Recommend continuing baricitinib and follow clinically. Appears to be making some small degrees of progress with regards to her tachypnea and oxygen requirement. 2. Hypoxemic respiratory failure: She is stable on high flow oxygen currently. Continue to wean as tolerated 3. No evidence of PE on CT angiogram. Continue DVT prophylaxis. 4. Pneumomediastinum: Not unexpected given Covid. Continue supportive care. Avoid positive airway pressure if at all possible. Repeat chest x-ray in the morning. Patient is making some progress which is encouraging. Admission and Anticipated Discharge Date Admission Date: July 02, 2021 Subjective Patient seen and examined. EMR reviewed. Clinically she feels about the same. She is not coughing or expectorating phlegm. They are able to slightly wean her oxygen. She is not having any chest pain. She tolerating a diet. Review of Systems Review of Systems: All systems reviewed & are unremarkable except as noted in Subjective Physical Exam Constitutional: WD/WN, vitals as above Neck: trachea midline, no thyromegaly Respiratory: + labored breathing and + tachypneic; no respiratory distress Cardiovascular: RRR, no murmur, no edema Gastrointestinal (Abdomen): normal bowel sounds, soft, nontender, no hepatosplenomegaly Musculoskeletal: Extremities: extremities normal to inspection Skin: no rashes, warm and dry Lymphatic: no cervical lymphadenopathy Results & Data Results & Data ([facility]) Vital Signs (Past 12 Hours) Vital Signs Temp Pulse Pulse Resp BP BP Pulse Ox 07/12/21 08:00 07/12/21 07:55 75 20 90 07/12/21 07:02 36.5 C 67 19 155/85 H 91 07/12/21 03:57 36.5 C 75 19 170/96 H 94 07/12/21 03:54 36.5 C 78 18 93 07/12/21 03:39 76 22 92 07/12/21 00:00 68 07/11/21 23:25 68 16 90 07/11/21 23:02 36.5 C 76 19 177/93 H 93 Pulse Ox 07/12/21 08:00 90 07/12/21 07:55 07/12/21 07:02 07/12/21 03:57 07/12/21 03:54 07/12/21 03:39 07/12/21 00:00 07/11/21 23:25 07/11/21 23:02 Critical Care Results & Data Vital Signs (Past 12 Hours) Vital Signs Temp Pulse Pulse Resp BP BP Pulse Ox 07/12/21 08:00 07/12/21 07:55 75 20 90 07/12/21 07:02 36.5 C 67 19 155/85 H 91 07/12/21 03:57 36.5 C 75 19 170/96 H 94 07/12/21 03:54 36.5 C 78 18 93 07/12/21 03:39 76 22 92 07/12/21 00:00 68 07/11/21 23:25 68 16 90 07/11/21 23:02 36.5 C 76 19 177/93 H 93 Pulse Ox 07/12/21 08:00 90 07/12/21 07:55 07/12/21 07:02 07/12/21 03:57 07/12/21 03:54 07/12/21 03:39 07/12/21 00:00 07/11/21 23:25 07/11/21 23:02 Lab & Micro Results (Past 24 Hours) RBC 4.85 M/uL (4.2-5.4) 07/12/21 WBC 16.45 K/uL (4.8-10.8) H 07/12/21 Hgb 15.0 g/dL (12.0-16.0) 07/12/21 Hct 45.5 % (37-47) 07/12/21 MCV 93.8 fL (80-100) 07/12/21 MCH 30.9 pg (25-34) 07/12/21 MCHC 33.0 g/dL (32-36) 07/12/21 RDW Standard Deviation 43.6 fL (36.4-46.3) 07/12/21 RDW Coefficient of Variation 12.6 % (11.5-14.5) 07/12/21 Plt Count 867 K/uL (130-400) H 07/12/21 MPV 10.4 fL (7.4-10.4) 07/12/21 Na 136 mmol/L (136-145) 07/12/21 K 4.6 mmol/L (3.5-5.1) 07/12/21 Cl 102 mmol/L (98-107) 07/12/21 CO2 28 mmol/L (21-32) 07/12/21 Anion Gap 6.0 (3-11) 07/12/21 BUN 46 mg/dl (7-18) H 07/12/21 Creatinine 1.04 mg/dl (0.6-1.2) 07/12/21 Estimated GFR ( Amer) 68.6 ml/min 07/12/21 Estimated GFR (Non-Af Amer) 59.2 ml/min 07/12/21 BUN/Creatinine Ratio 44.3 (10-20) H 07/12/21 Glu 99 mg/dl (70-99) 07/12/21 Ca 9.3 mg/dl (8.5-10.1) 07/12/21 Calcium Level 9.3 mg/dl (8.5-10.1) 07/12/21 05:54 07/12/21 Diagnostic Findings (Past 24 Hours) Chest X-Ray 07/12/21 07:00 SINGLE VIEW CHEST CLINICAL HISTORY: Covid pneumonia. FINDINGS: An AP, portable, upright chest radiograph is compared to study dated 07/07/2021. The cardiomediastinal silhouette is unremarkable. There is elevation of the right hemidiaphragm. There is pneumomediastinum. Multifocal airspace consolidation is again seen throughout both lungs, most confluent at the lung bases. No large pleural effusion or pneumothorax is identified. The bony thorax is grossly intact. There is mild thoracolumbar scoliosis. Subcutaneous emphysema in the lower neck is new from previous. IMPRESSION: 1. Multifocal airspace consolidation is consistent with the reported history of a viral pneumonia. This has not significantly changed from 07/07/2021. 2. Pneumomediastinum is new from previous. 3. There is subcutaneous emphysema in the lower neck. This is also new from 07/07/2021. 4. No definite pneumothorax is identified. ACT 112: Negative or not required by law. Electronically signed by: Darell Guillen M.D. 07/12/2021 8:28 AM I & O Totals 24 Hours 07/11/21 07/12/21 07/13/21 06:59 06:59 06:59 Intake Total 1045 / 1045 770 / 770 Output Total 1326 / 1326 1750 / 1750 Balance -281 / -281 -980 / -980 -1 / -1 Cumulative 07/02/21 15:21 thru 07/12/21 07:30 Intake Total 12861.666 Output Total 98814 Balance -5788.334 RT Ventilator Mngmt (Last Documented) Ventilator Ordered Settings Respiratory Rate 20 07/12/21 07:55 Fraction of Inspired Oxygen 70 07/12/21 07:55 Ventilator - PT Measurements Respiratory Rate 20 PG Care Time/CCT Total # of Minutes Spent Total Time Spent with Patient: Total time spent is greater than 50% in coordination of care (as documented) at patient's floor/unit and/or counseling patient: Coding Level of Care Code 02082 Subseq Hosp Care Lvl 2 Diagnoses Acute hypoxemic respiratory failure J96.01 Pneumonia due to 2019 novel coronavirus U07.1; J12.82 Hypoxia R09.02 Pneumomediastinum J98.2
[2021-07-12] MEDS: INSULIN ASPART 100 UNITS/ML 3 ML PEN SC SCH ×4 (10:03→21:30)
--- NOTE | 2021-07-12 12:44 | Pharmacy Report ---
Pharmacy Glycemic Short Note 2 - Date of Service July 12, 2021 - Glycemic Short BSG Results (Last 24 hours): 07/11/21 07/11/21 07/12/21 16:37 20:21 05:54 Glucose 99 POC Glucose 126 H 136 H 07/12/21 07/12/21 08:05 12:26 Glucose POC Glucose 92 137 H OUTPATIENT ANTIDIABETIC REGIMEN: * None * HbA1c 6.8% on 07/02/21 ASSESSMENT: 07/12: * Patient well controlled overall over the past few days. Continue with current novolog scale. 07/10 * Patient's BSGs yesterday [phone] mg/dL * Dexamethasone increased to 20 mg daily, anticipate for 5 days then taper * Fasting today 97 mg/dL- continue to hold lantus * will continue current novolog parameters 07/08 * Patient's BSGs yesterday were [phone] mg/dL. Patient received 8 units of insulin (0 units of basal and 8 units of bolus). * Fasting today was 97 mg/dL. * Continue to hold Lantus. * BSGs trend up throughout the day so tighten CR as this is primarily affected by steroids. 07/07 * Stressors stable * Patient received 8 units of prandial/correctional insulin with adequate control * Fasting 91 mg/dL, will continue to hold basal for now * No change to novolog. 07/06 * Stressors stable * Patient received 11 units of insulin yesterday (10 basal, 1 bolus), with BSG's ranging 92-148 mg/dL * AM fasting BSG well below goal range despite minimal basal insulin yesterday - will hold * Post-prandial BSG's yesterday good although po intake poor - no change to Novolog 07/05 * Stressors stable * AM fasting BSG below goal range - will significantly reduce NPH * Post-prandial BSG's yesterday good - no change to Novolog 07/04 * 56 yo F with new diagnosis of diabetes admitted with COVID-19 and on steroids * Pharmacy consulted on day 3 of admission. AM random BSG's have ranged 140-176 mg/dL over the last 3 days * Will start NPH to mimic PK of dexamethasone, but will not be aggressive as AM fasting this AM is in goal range without basal insulin (although at the upper end of goal) * Will start Novolog ACHS between weight-based moderate to severe stress estimate. Will adjust based on trend in BSG's PLAN FOR INPATIENT GLYCEMIC CONTROL: * Basal insulin * hold * Bolus insulin * NovoLog per scale ACHS or Q6hrs while NPO * Goal Range: Low 110 mg/dL - High 140 mg/dL * Correction Factor: 25 mg/dL/unit * Nutritional / Prandial insulin per carb ratio of 1 unit per 5 grams CHO consumed PLAN FOR DISCHARGE: * see note from 07/06
[2021-07-12] MEDS: MELATONIN 3 MG TAB PO PRN (21:41)
[2021-07-12] MEDS: ZOLPIDEM TARTRATE 5 MG TAB PO PRN (21:41)
[2021-07-13 07:02] LABS: BUN Creatinine Ratio 41.7 (10-20); Calcium 9.2 mg/dl (8.5-10.1); Est GFR (African American) 79.6 ml/min; Est GFR (Non-African American) 68.6 ml/min
[2021-07-13] MEDS: dexAMETHasone 20 MG in DEXTROSE 5% 25 ML IV SCH (09:18)
[2021-07-13] MEDS: PANTOprazole 40 MG TAB PO SCH (09:19)
[2021-07-13] MEDS: ESCITALOPRAM OXALATE 10 MG TAB PO SCH (09:19)
[2021-07-13] MEDS: ENOXAPARIN INJ 40 MG/0.4 ML SYR SQ SCH (09:19)
[2021-07-13] MEDS: FLUTICASONE PROPIONATE NA SPR 16 GM BTL SCH (09:19)
[2021-07-13] MEDS: MONTELUKAST SODIUM 10 MG TABLET PO SCH (09:19)
[2021-07-13] MEDS: LORATADINE 10 MG TAB PO SCH (09:19)
[2021-07-13] MEDS: amLODIPine BESYLATE 5 MG TAB PO SCH (09:19)
[2021-07-13] MEDS: CYANOCOBALAMIN (VITAMIN B-12) 2,500 MCG TAB.SUBL SL SCH (09:19)
[2021-07-13] MEDS: MULTIVITAMIN TAB PO SCH (09:20)
[2021-07-13] MEDS: BARICITINIB 2 MG TAB PO SCH (09:25)
[2021-07-13] MEDS: INSULIN ASPART 100 UNITS/ML 3 ML PEN SC SCH ×4 (09:34→22:19)
--- NOTE | 2021-07-13 12:27 | XRay Report ---
XR chest 1V portable CLINICAL HISTORY: Pneumomediastinum COMPARISON STUDY: Chest CT July 04, 2021. Chest radiograph July 12, 2021. FINDINGS: Multifocal bilateral airspace opacities within the lungs are similar to prior exam. Pneumom ediastinum and subcutaneous gas within the neck are again noted. There is a probable small left pneum othorax with pleural separation of approximately 8 mm. There is no right pneumothorax. Elevation of t he right hemidiaphragm is unchanged. Cardiomediastinal silhouette is stable. IMPRESSION: 1. Redemonstration of pneumomediastinum and subcutaneous gas within the neck. 2. Probable small left pneumothorax. This can be assessed on follow-up chest radiographs. 3. No change in bilateral airspace opacities suggestive of viral pneumonia. ACT 112: Negative or not required by law. Electronically signed by: Aden Krueger M.D. 07/13/2021 12:25 PM
--- NOTE | 2021-07-13 14:41 | Pulmonology Progress Note ---
Date of Service July 13, 2021 Assessment & Plan (1) Acute hypoxemic respiratory failure: (2) Pneumonia due to 2019 novel coronavirus: (3) Hypoxia: (4) Pneumomediastinum: (5) Pneumothorax, left: Plan: Impression: 56-year-old female not vaccinated for Covid presenting with acute Covid pneumonia and hypoxemic respiratory failure. She has been able to be weaned down a little bit on her oxygen requirement over the and appears less dyspneic and tachypneic today. However, she does still require high flow oxygen with an FiO2 of 77% and a flow rate of 50 L. Also, there is a new finding of left pneumothorax with this 07/13/2021 chest x-ray. Recommendations: 1. Covid pneumonia: Currently on late-phase ARDS dexamethasone at 20 mg a day. She is day 6 today and will transition to 10 mg a day for 5 days starting today. Recommend continuing baricitinib and follow clinically. Appears to be making some small degrees of progress with regards to her tachypnea and oxygen requirement. 2. Hypoxemic respiratory failure: She is stable on high flow oxygen currently. Continue to wean as tolerated 3. No evidence of PE on CT angiogram. Continue DVT prophylaxis. 4. Pneumomediastinum: Not unexpected given Covid. Continue supportive care. Avoid positive airway pressure if at all possible. Repeat chest x-ray today reveals persistent pneumomediastinum with some subcutaneous air in the neck. 5. Left pneumothorax: Identified on chest x-ray 07/13/2021. Will repeat chest x-ray this afternoon. If pleural separation worsens, patient may require pigtail catheter to suction. Continue to follow serial radiographs. Avoid positive airway pressure if possible. Thank you for including us in the care of this patient. We will continue to follow with you for now. Please refer to Dr. Rivera's addendum for further recommendations and corrections. Admission and Anticipated Discharge Date Admission Date: July 02, 2021 Subjective Attending: Dr. Rivera Patient seen and examined at bedside. She continues to require FiO2 of 77% with a flow volume of 50 L. She does not seem in distress. She has a dry cough. She denies any hemoptysis. She has no chest pain. She reports that progress has been slow. She does not feel as though she is worsening. No fever, chills, sweats, rigors. Review of Systems Review of Systems: All systems reviewed & are unremarkable except as noted in Subjective Physical Exam 2 Physical Exam: GENERAL : No acute distress EYES: No icterus, gaze conjugate NOSE: No evidence of epistaxis. High flow nasal cannula in place MOUTH: No lesions or candidiasis NECK: Supple LUNGS: CTA B/L, no wheezes, rales or rhonchi. No clear adventitious breath sounds. Patient does have difficulty with incentive spirometry. HEART: Regular, rate controlled ABDOMEN: Soft, NT, ND, BS Present EXTREMITIES: No LE edema, pedal pulses intact and equal bilaterally NEURO: A&OX3 Results & Data Results & Data ([facility]) Vital Signs (Past 12 Hours) Vital Signs Temp Pulse Pulse Resp BP BP Pulse Ox 07/13/21 11:13 36.9 C 77 18 124/74 88 L 07/13/21 10:59 82 20 88 L 07/13/21 07:42 72 19 07/13/21 07:19 37.2 C 73 18 147/87 H 88 L 07/13/21 03:24 79 25 H 90 07/13/21 03:13 36.8 C 72 14 168/87 H 94 Laboratory Results 07/12/21 05:54 07/13/21 05:31 Diagnostic Findings Chest X-Ray 07/13/21 07:00 XR chest 1V portable CLINICAL HISTORY: Pneumomediastinum COMPARISON STUDY: Chest CT July 04, 2021. Chest radiograph July 12, 2021. FINDINGS: Multifocal bilateral airspace opacities within the lungs are similar to prior exam. Pneumomediastinum and subcutaneous gas within the neck are again noted. There is a probable small left pneumothorax with pleural separation of approximately 8 mm. There is no right pneumothorax. Elevation of the right hemidiaphragm is unchanged. Cardiomediastinal silhouette is stable. IMPRESSION: 1. Redemonstration of pneumomediastinum and subcutaneous gas within the neck. 2. Probable small left pneumothorax. This can be assessed on follow-up chest radiographs. 3. No change in bilateral airspace opacities suggestive of viral pneumonia. ACT 112: Negative or not required by law. Electronically signed by: Aden Krueger M.D. 07/13/2021 12:25 PM PG Care Time/CCT Total # of Minutes Spent Total Time Spent with Patient: Total time spent is greater than 50% in coordination of care (as documented) at patient's floor/unit and/or counseling patient: 30 minutes Coding Level of Care Code 59171 Subseq Hosp Care Lvl 2 Diagnoses Acute hypoxemic respiratory failure J96.01 Pneumonia due to 2019 novel coronavirus U07.1; J12.82 Hypoxia R09.02 Pneumomediastinum J98.2 Pneumothorax, left J93.9 Time Spent (min) 30
--- NOTE | 2021-07-13 15:28 | XRay Report ---
SINGLE VIEW CHEST CLINICAL HISTORY: Covid pneumonia. Pneumothorax. FINDINGS: An AP, portable, upright chest radiograph is compared to study performed earlier the same d ay 07/13/2021. The cardiomediastinal silhouette is unremarkable. There is elevation of the right fletcher diaphragm. Multifocal airspace consolidation is unchanged. No large pleural effusion is identified. P neumomediastinum persists. A small left apical pneumothorax has modestly increased in size. There is at least 1.5 cm of apical pleural separation. The bony thorax is grossly intact. There is increasing subcutaneous emphysema in the lower neck. IMPRESSION: 1. Multifocal airspace consolidation is unchanged and consistent with the reported history of a viral pneumonia. 2. There is a small left apical pneumothorax. This has modestly increased in size from previous. 3. There is increasing subcutaneous gas in the lower neck. 4. Pneumomediastinum is again noted. ACT 112: Negative or not required by law. Electronically signed by: Darell Guillen M.D. 07/13/2021 3:26 PM
--- NOTE | 2021-07-13 17:35 | Hospitalist Progress Note ---
Date of Service July 13, 2021 Assessment & Plan (1) Acute hypoxemic respiratory failure: Plan: Patient is a 56 yr female with H/o hypertension, celiac disease, NAFLD presented 07/02 to our ED with complaint of shortness of breathworsening secondary to recent diagnosis of Covid positive at primary care office. Acute hypoxemic respiratory failure COVID 19 Pneumonia --CTA:There is no evidence of pulmonary embolus in the main, lobar, or segmental pulmonary arteries. Multifocal airspace consolidation is consistent with the reported history of a viral pneumonia. Radiographic follow-up to resolution is recommended. Enlarged mediastinal and hilar nodes are likely reactive. 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 Received Remdesivir 1 dose on 07/02/21 Continue Baricitinib Day # 08/06 Continue dexamethasone as recommended by pulmonology Completed 5-day course of dexamethasone 20 mg Plan to continue dexamethasone 10 mg daily for 5 more days Appreciate pulmonary input Lasix, Nebs PRN Continue Pulmonary Hygiene Encourage to prone as able Currently on high flow oxygen--45L 65% FiO2 Pneumomediastinum Subcutaneous emphysema Small left apical pneumothorax -CXR: Multifocal airspace consolidation is consistent with the reported history of a viral pneumonia. This has not significantly changed from 07/07/2021. Pneumomediastinum is new from previous. There is subcutaneous emphysema in the lower neck. This is also new from 07/07/2021. No definite pneumothorax is identified. -Will repeat chest x-ray tomorrow -Avoid positive airway pressure if possible. -May need pigtail catheter placed Thrombocythemia Likely secondary to Baricitinib Monitor Platelet count Hypertension GERD Mood disorder Continue home meds DVT Px: Lovenox SQ Code Status Full code Admission and Anticipated Discharge Date Admission Date: July 02, 2021 Subjective Patient is seen and examined at bedside No new complaints Denies any significant cough today States her breathing is same as yesterday Denies chest pain, nausea, vomiting, abdominal pain, diarrhea, dizziness Discussed with pulmonology today. Review of Systems Review of Systems: All systems reviewed & are unremarkable except as noted in Subjective Physical Exam Physical Exam: Physical Exam: Vitals signs as noted above General Appearance:Moderately built and nourished, no apparent distress Head: normocephalic, Atraumatic Eyes: normal inspection, EOMI Neck: supple, Trachea midline Respiratory/Chest:Decreased breath sounds, CTA Cardiovascular: S1, S2, No murmur Abdomen/GI:Soft, Non tender, Bowel sounds present Extremities/Musculoskeletal:normal inspection, no edema Neurologic/Psych:AAOX3, grossly no focal neurological deficits Skin: normal color, warm Results & Data Results & Data ([facility]) Vital Signs (Past 12 Hours) Vital Signs Temp Pulse Resp BP BP Pulse Ox 07/13/21 15:15 81 17 07/13/21 15:09 36.6 C 77 20 137/75 88 L 07/13/21 11:13 36.9 C 77 18 124/74 88 L 07/13/21 10:59 82 20 88 L 07/13/21 07:42 72 19 07/13/21 07:19 37.2 C 73 18 147/87 H 88 L Laboratory Results [facility] 07/13/21 05:31 Sodium 136 Potassium 5.0 Chloride 103 Carbon Dioxide 27 BUN 38 H Creatinine 0.92 Glucose 93 Calcium 9.2
[2021-07-13] MEDS: ZOLPIDEM TARTRATE 5 MG TAB PO PRN (22:04)
[2021-07-13] MEDS: MELATONIN 3 MG TAB PO PRN (22:04)
[2021-07-14] MEDS ORDERED: MELATONIN 3 MG TAB PO STA (00:18)
[2021-07-14 07:11] LABS: Hematocrit (blood only) 44.1 % (37-47); Hemoglobin 14.8 g/dL (12.0-16.0); Mean Corpuscular Hemoglobin 30.8 pg (25-34); Mean Corpuscular Hgb Conc 33.6 g/dL (32-36); Mean Corpuscular Volume 91.7 fL (80-100); Mean Platelet Volume 10.5 fL (7.4-10.4); Platelet Count 949 K/uL (130-400); RDW Coefficient of Variation 12.6 % (11.5-14.5); RDW Standard Deviation 42.3 fL (36.4-46.3); Red Blood Count 4.81 M/uL (4.2-5.4); White Blood Count 14.77 K/uL (4.8-10.8)
[2021-07-14 07:40] LABS: BUN Creatinine Ratio 40.6 (10-20); Calcium 9.2 mg/dl (8.5-10.1); Creatinine Clr Calc Pharmacy 63.2 ml/min; Est GFR (African American) 79.6 ml/min; Est GFR (Non-African American) 68.6 ml/min; Potassium 4.4 mmol/L (3.5-5.1)
[2021-07-14] MEDS: INSULIN ASPART 100 UNITS/ML 3 ML PEN SC SCH ×4 (08:15→21:43)
[2021-07-14] MEDS: dexAMETHasone 10 MG in DEXTROSE 5% 25 ML IV SCH (08:18)
[2021-07-14] MEDS: FLUTICASONE PROPIONATE NA SPR 16 GM BTL SCH (08:18)
[2021-07-14] MEDS: amLODIPine BESYLATE 5 MG TAB PO SCH (08:18)
[2021-07-14] MEDS: ESCITALOPRAM OXALATE 10 MG TAB PO SCH (08:19)
[2021-07-14] MEDS: LORATADINE 10 MG TAB PO SCH (08:19)
[2021-07-14] MEDS: MULTIVITAMIN TAB PO SCH (08:19)
[2021-07-14] MEDS: ENOXAPARIN INJ 40 MG/0.4 ML SYR SQ SCH (08:19)
[2021-07-14] MEDS: MONTELUKAST SODIUM 10 MG TABLET PO SCH (08:19)
[2021-07-14] MEDS: CYANOCOBALAMIN (VITAMIN B-12) 2,500 MCG TAB.SUBL SL SCH (08:19)
[2021-07-14] MEDS: PANTOprazole 40 MG TAB PO SCH (08:19)
--- NOTE | 2021-07-14 09:29 | XRay Report ---
SINGLE VIEW CHEST CLINICAL HISTORY: Covid pneumonia. Pneumothorax. FINDINGS: An AP, portable, upright chest radiograph is compared to studies dated 07/13/2021. The card iomediastinal silhouette is unremarkable. There is elevation of the right hemidiaphragm. Multifocal a irspace consolidation is unchanged. No large pleural effusion is identified. Pneumomediastinum persis ts. A small left apical pneumothorax has modestly increased in size. There is at least 14 mm of apica l pleural separation. The bony thorax is grossly intact. Subcutaneous emphysema is again seen in the lower neck. IMPRESSION: 1. Multifocal airspace consolidation is unchanged and consistent with the reported history of a viral pneumonia. 2. A small left apical pneumothorax is unchanged from yesterday. 3. Pneumomediastinum and subcutaneous emphysema are again noted. ACT 112: Negative or not required by law. Electronically signed by: Darell Guillen M.D. 07/14/2021 9:27 AM
[2021-07-14] MEDS: BARICITINIB 2 MG TAB PO SCH (09:49)
--- NOTE | 2021-07-14 13:47 | Pharmacy Report ---
Pharmacy Glycemic Short Note 2 - Date of Service July 14, 2021 - Glycemic Short BSG Results (Last 24 hours): 07/13/21 07/13/21 07/14/21 16:09 21:07 05:59 Glucose 103 H POC Glucose 140 H 130 H 07/14/21 07/14/21 07:49 11:12 Glucose POC Glucose 109 H 184 H OUTPATIENT ANTIDIABETIC REGIMEN: * None * HbA1c 6.8% on 07/02/21 ASSESSMENT: 07/14 * Controlled with current novolog parameters, dexamethasone decreased to 10 mg today, will monitor for need to loosen 07/12: * Patient well controlled overall over the past few days. Continue with current novolog scale. 07/10 * Patient's BSGs yesterday [phone] mg/dL * Dexamethasone increased to 20 mg daily, anticipate for 5 days then taper * Fasting today 97 mg/dL- continue to hold lantus * will continue current novolog parameters 07/08 * Patient's BSGs yesterday were [phone] mg/dL. Patient received 8 units of insulin (0 units of basal and 8 units of bolus). * Fasting today was 97 mg/dL. * Continue to hold Lantus. * BSGs trend up throughout the day so tighten CR as this is primarily affected by steroids. 07/07 * Stressors stable * Patient received 8 units of prandial/correctional insulin with adequate control * Fasting 91 mg/dL, will continue to hold basal for now * No change to novolog. 07/06 * Stressors stable * Patient received 11 units of insulin yesterday (10 basal, 1 bolus), with BSG's ranging 92-148 mg/dL * AM fasting BSG well below goal range despite minimal basal insulin yesterday - will hold * Post-prandial BSG's yesterday good although po intake poor - no change to Novolog 07/05 * Stressors stable * AM fasting BSG below goal range - will significantly reduce NPH * Post-prandial BSG's yesterday good - no change to Novolog 07/04 * 56 yo F with new diagnosis of diabetes admitted with COVID-19 and on steroids * Pharmacy consulted on day 3 of admission. AM random BSG's have ranged 140-176 mg/dL over the last 3 days * Will start NPH to mimic PK of dexamethasone, but will not be aggressive as AM fasting this AM is in goal range without basal insulin (although at the upper end of goal) * Will start Novolog ACHS between weight-based moderate to severe stress estimate. Will adjust based on trend in BSG's PLAN FOR INPATIENT GLYCEMIC CONTROL: * Basal insulin * hold * Bolus insulin * NovoLog per scale ACHS or Q6hrs while NPO * Goal Range: Low 110 mg/dL - High 140 mg/dL * Correction Factor: 25 mg/dL/unit * Nutritional / Prandial insulin per carb ratio of 1 unit per 5 grams CHO consumed PLAN FOR DISCHARGE: * see note from 07/06
--- NOTE | 2021-07-14 13:54 | Pulmonology Progress Note ---
Date of Service July 14, 2021 Assessment & Plan (1) Acute hypoxemic respiratory failure: (2) Pneumonia due to 2019 novel coronavirus: (3) Hypoxia: (4) Pneumomediastinum: (5) Pneumothorax, left: Plan: Impression: 56-year-old female not vaccinated for Covid presenting with acute Covid pneumonia and hypoxemic respiratory failure. Her course has been complicated by pneumomediastinum and a small apical left pneumothorax which has been stable on serial imaging. Recommendations: 1. Covid pneumonia: Currently on late-phase ARDS dexamethasone at 20 mg a day. She is day 6 today and will transition to 10 mg a day for 5 days starting today. Recommend continuing baricitinib and follow clinically. Appears to be making some small degrees of progress with regards to her tachypnea and oxygen requirement. 2. Hypoxemic respiratory failure: She is stable on high flow oxygen currently. Continue to wean as tolerated 3. No evidence of PE on CT angiogram. Continue DVT prophylaxis. 4. Pneumomediastinum: Not unexpected given Covid. Continue supportive care. A void positive airway pressure if at all possible. Serial imaging is been stable and would defer additional imaging unless the patient's clinical condition should change. 5. Left pneumothorax: Identified on chest x-ray 07/13/2021. Small apical stable over time. No intervention required at this time. Thank you for including us in the care of this patient. We will continue to follow with you for now. Admission and Anticipated Discharge Date Admission Date: July 02, 2021 Subjective Patient seen and examined. EMR reviewed. The patient feels about the same. No acute changes overnight. Her oxygen requirement has been stable Review of Systems Review of Systems: Unchanged from prior Physical Exam Constitutional: WD/WN, vitals as above Neck: trachea midline, no thyromegaly Slight crepitus in the anterior neck Respiratory: no respiratory distress Cardiovascular: RRR, no murmur, no edema Gastrointestinal (Abdomen): normal bowel sounds, soft, nontender, no hepatosplenomegaly Musculoskeletal: Extremities: extremities normal to inspection Skin: no rashes, warm and dry Lymphatic: no cervical lymphadenopathy Results & Data Results & Data ([facility]) Vital Signs (Past 12 Hours) Vital Signs Temp Pulse Pulse Pulse Resp BP BP 07/14/21 11:17 36.6 C 85 20 153/99 H 10/22/21 11:05 64 20 07/14/21 08:00 70 07/14/21 07:50 36.6 C 72 20 168/88 H 07/14/21 07:15 69 20 07/14/21 04:14 37.0 C 72 24 150/88 H 07/14/21 03:50 72 22 Pulse Ox Pulse Ox 07/14/21 11:17 88 L 07/14/21 11:05 92 07/14/21 08:00 91 07/14/21 07:50 90 07/14/21 07:15 96 07/14/21 04:14 94 07/14/21 03:50 94 Laboratory Results 07/14/21 05:59 07/14/21 05:59 Diagnostic Findings SINGLE VIEW CHEST 07/14/2021: Film independently reviewed CLINICAL HISTORY: Covid pneumonia. Pneumothorax. FINDINGS: An AP, portable, upright chest radiograph is compared to studies dated 07/13/2021. The cardiomediastinal silhouette is unremarkable. There is elevation of the right hemidiaphragm. Multifocal airspace consolidation is unchanged. No large pleural effusion is identified. Pneumomediastinum persists. A small left apical pneumothorax has modestly increased in size. There is at least 14 mm of apical pleural separation. The bony thorax is grossly intact. Subcutaneous emphysema is again seen in the lower neck. IMPRESSION: 1. Multifocal airspace consolidation is unchanged and consistent with the reported history of a viral pneumonia. 2. A small left apical pneumothorax is unchanged from yesterday. 3. Pneumomediastinum and subcutaneous emphysema are again noted. PG Care Time/CCT Total # of Minutes Spent Total Time Spent with Patient: Total time spent is greater than 50% in coordination of care (as documented) at patient's floor/unit and/or counseling patient: Coding Level of Care Code 36898 Subseq Hosp Care Lvl 2 Diagnoses Acute hypoxemic respiratory failure J96.01 Pneumonia due to 2019 novel coronavirus U07.1; J12.82 Hypoxia R09.02 Pneumomediastinum J98.2 Pneumothorax, left J93.9
--- NOTE | 2021-07-14 16:21 | Hospitalist Progress Note ---
Date of Service July 14, 2021 Assessment & Plan (1) Acute hypoxemic respiratory failure: Plan: Patient is a 56 yr female with H/o hypertension, celiac disease, NAFLD presented 07/02 to our ED with complaint of shortness of breathworsening secondary to recent diagnosis of Covid positive at primary care office. Acute hypoxemic respiratory failure COVID 19 Pneumonia --CTA:There is no evidence of pulmonary embolus in the main, lobar, or segmental pulmonary arteries. Multifocal airspace consolidation is consistent with the reported history of a viral pneumonia. Radiographic follow-up to resolution is recommended. Enlarged mediastinal and hilar nodes are likely reactive. 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 Received Remdesivir 1 dose on 07/02/21 Continue Baricitinib Day # 12 Continue dexamethasone as recommended by pulmonology Completed 5-day course of dexamethasone 20 mg Plan to continue dexamethasone 10 mg daily for 5 more days Lasix, Nebs PRN Continue Pulmonary Hygiene Encourage to prone as able Continues to require high flow oxygen to maintain saturations. Appreciate pulmonary input Pneumomediastinum Subcutaneous emphysema Small left apical pneumothorax -CXR: Multifocal airspace consolidation is consistent with the reported history of a viral pneumonia. This has not significantly changed from 07/07/2021. Pneumomediastinum is new from previous. There is subcutaneous emphysema in the lower neck. This is also new from 07/07/2021. No definite pneumothorax is identified. -Avoid positive airway pressure if possible. -Chest x-ray today showed no significant change of pneumothorax, pneumomediastinum No intervention needed currently Monitor Thrombocythemia Likely secondary to Baricitinib Monitor Platelet count Hypertension GERD Mood disorder Continue home meds DVT Px: Lovenox SQ Code Status Full code Admission and Anticipated Discharge Date Admission Date: July 02, 2021 Subjective Patient is seen and examined at bedside Today remains unchanged Patient states feeling more energetic today Denies any dyspnea at rest Also denies chest pain, nausea, vomiting, abdominal pain, diarrhea, dizziness Continues to require high flow oxygen to maintain saturations. Review of Systems Review of Systems: All systems reviewed & are unremarkable except as noted in Subjective Physical Exam Physical Exam: Physical Exam: Vitals signs as noted above General Appearance:Moderately built and nourished, no apparent distress Head: normocephalic, Atraumatic Eyes: normal inspection, EOMI Neck: supple, Trachea midline Respiratory/Chest:Decreased breath sounds, CTA Cardiovascular: S1, S2, No murmur Abdomen/GI:Soft, Non tender, Bowel sounds present Extremities/Musculoskeletal:normal inspection, no edema Neurologic/Psych:AAOX3, grossly no focal neurological deficits Skin: normal color, warm Results & Data Results & Data ([facility]) Vital Signs (Past 12 Hours) Vital Signs Temp Pulse Pulse Pulse Resp BP Pulse Ox 07/14/21 15:52 36.6 C 81 19 153/68 H 92 07/14/21 11:17 36.6 C 85 20 153/99 H 88 L 07/14/21 11:05 64 20 92 07/14/21 08:00 70 07/14/21 07:50 36.6 C 72 20 168/88 H 90 07/14/21 07:15 69 20 96 Pulse Ox 07/14/21 15:52 07/14/21 11:17 07/14/21 11:05 07/14/21 08:00 91 07/14/21 07:50 07/14/21 07:15 Laboratory Results Short CBC 07/14/21 Range/Units 05:59 WBC 14.77 H (4.8-10.8) K/uL Hgb 14.8 (12.0-16.0) g/dL Hct 44.1 (37-47) % Plt Count 949 H (130-400) K/uL BMP 07/14/21 05:59 Sodium 134 L Potassium 4.4 Chloride 103 Carbon Dioxide 27 BUN 37 H Creatinine 0.92 Glucose 103 H Calcium 9.2
[2021-07-14] MEDS: LORazepam 0.5 MG TAB PO PRN (22:03)
--- NOTE | 2021-07-15 07:48 | XRay Report ---
XR chest 1V portable CLINICAL HISTORY: pneumomediastinum COMPARISON STUDY: Chest radiograph July 14, 2021. FINDINGS: Moderate left pneumothorax has increased in size since prior examination. Bilateral airspac e opacities persist. Pneumomediastinum has decreased. Subcutaneous gas within neck is again noted. El evation the right hemidiaphragm is unchanged. There is mild rightward mediastinal shift. IMPRESSION: 1. Increase in size of a moderate left pneumothorax. This finding will be called/faxed to the orderin g provider at time of dictation. Mild right mediastinal shift. 2. Decrease in pneumomediastinum. Redemonstration of subcutaneous gas within the lower neck. 3. Persistent bilateral airspace opacities suggestive of viral pneumonia ACT 112: Negative or not required by law. Electronically signed by: Aden Krueger M.D. 07/15/2021 7:46 AM
[2021-07-15 07:51] LABS: BUN Creatinine Ratio 37.3 (10-20); Creatinine Clr Calc Pharmacy 63.5 ml/min; Est GFR (African American) 80.6 ml/min; Est GFR (Non-African American) 69.5 ml/min; Potassium 3.7 mmol/L (3.5-5.1)
--- NOTE | 2021-07-15 08:26 | Pulmonology Progress Note ---
Date of Service July 15, 2021 Assessment & Plan (1) Acute hypoxemic respiratory failure: (2) Pneumonia due to 2019 novel coronavirus: (3) Hypoxia: (4) Pneumomediastinum: (5) Pneumothorax, left: Plan: Impression: 56-year-old female not vaccinated for Covid presenting with acute Covid pneumonia and hypoxemic respiratory failure. Her course has been complicated by pneumomediastinum and a small apical left pneumothorax which is slightly increased on today's film. Nevertheless, her oxygen requirement and clinical status appears slightly better. Recommendations: 1. Covid pneumonia: Currently on late-phase ARDS dexamethasone at 10 mg a day for 5 days starting today. Recommend continuing baricitinib and follow clinically. Appears to be making some small degrees of progress with regards to her tachypnea and oxygen requirement. 2. Hypoxemic respiratory failure: She is stable on high flow oxygen currently. Continue to wean as tolerated 3. No evidence of PE on CT angiogram. Continue DVT prophylaxis. 4. Pneumomediastinum: Not unexpected given Covid. Continue supportive care. Avoid positive airway pressure if at all possible. Serial imaging is been stable and would defer additional imaging unless the patient's clinical condition should change. 5. Left pneumothorax: Slightly increased on today's film. She is asymptomatic. Recommended discontinuing incentive spirometer and flutter valve as this may be aggravating the issue. I think it is reasonable to continue clinical observation at this point time. We will follow up her chest x-ray in about 10 hours to ensure that there is been no significant progression. I did discuss with her the potential need for tube thoracostomy if the pneumothorax were to increase in size. She is very comfortable now and wants to continue observation which I think is reasonable. Thank you for including us in the care of this patient. We will continue to follow with you for now. was updated by phone. Admission and Anticipated Discharge Date Admission Date: July 02, 2021 Subjective Patient seen and examined. She is doing reasonably well. She feels her breathing is slightly better. There have been able to slightly wean her oxygen requirements. She was unable to sleep supine or prone due to anxiety last night. Review of Systems Review of Systems: Negative except as noted above Physical Exam Constitutional: WD/WN, vitals as above Neck: trachea midline, no thyromegaly Respiratory: no respiratory distress Cardiovascular: RRR, no murmur, no edema Gastrointestinal (Abdomen): normal bowel sounds, soft, nontender, no hepatosplenomegaly Musculoskeletal: Extremities: extremities normal to inspection Skin: no rashes, warm and dry Lymphatic: no cervical lymphadenopathy Results & Data Results & Data ([facility]) Vital Signs (Past 12 Hours) Vital Signs Temp Pulse Resp BP BP Pulse Ox 07/15/21 07:31 80 18 88 L 07/15/21 07:03 37.1 C 73 19 150/86 H 89 L 07/15/21 03:52 36.7 C 75 18 155/84 H 91 07/15/21 03:15 69 20 93 07/15/21 00:00 36.5 C 74 20 150/80 H 92 07/14/21 22:27 68 21 92 Laboratory Results 07/14/21 05:59 07/15/21 06:22 Diagnostic Findings Chest x-ray from this morning was independently reviewed. The left apical pneumothorax is slightly larger today. The parenchymal densities remain unchanged PG Care Time/CCT Total # of Minutes Spent Total Time Spent with Patient: Total time spent is greater than 50% in coordination of care (as documented) at patient's floor/unit and/or counseling patient: Coding Level of Care Code 93159 Subseq Hosp Care Lvl 3 Diagnoses Acute hypoxemic respiratory failure J96.01 Pneumonia due to 2019 novel coronavirus U07.1; J12.82 Hypoxia R09.02 Pneumomediastinum J98.2 Pneumothorax, left J93.9
[2021-07-15] MEDS: dexAMETHasone 10 MG in DEXTROSE 5% 25 ML IV SCH (09:20)
[2021-07-15] MEDS: ESCITALOPRAM OXALATE 10 MG TAB PO SCH (09:21)
[2021-07-15] MEDS: MONTELUKAST SODIUM 10 MG TABLET PO SCH (09:21)
[2021-07-15] MEDS: amLODIPine BESYLATE 5 MG TAB PO SCH (09:21)
[2021-07-15] MEDS: MULTIVITAMIN TAB PO SCH (09:21)
[2021-07-15] MEDS: CYANOCOBALAMIN (VITAMIN B-12) 2,500 MCG TAB.SUBL SL SCH (09:22)
[2021-07-15] MEDS: PANTOprazole 40 MG TAB PO SCH (09:22)
[2021-07-15] MEDS: FLUTICASONE PROPIONATE NA SPR 16 GM BTL SCH (09:22)
[2021-07-15] MEDS: LORATADINE 10 MG TAB PO SCH (09:22)
[2021-07-15] MEDS: ENOXAPARIN INJ 40 MG/0.4 ML SYR SQ SCH (09:22)
[2021-07-15] MEDS: INSULIN ASPART 100 UNITS/ML 3 ML PEN SC SCH ×4 (09:37→19:52)
[2021-07-15] MEDS: BARICITINIB 2 MG TAB PO SCH (09:38)
--- NOTE | 2021-07-15 15:48 | Hospitalist Progress Note ---
Date of Service July 15, 2021 Assessment & Plan (1) Acute hypoxemic respiratory failure: Plan: Patient is a 56 yr female with H/o hypertension, celiac disease, NAFLD presented 07/02 to our ED with complaint of shortness of breathworsening secondary to recent diagnosis of Covid positive at primary care office. Acute hypoxemic respiratory failure COVID 19 Pneumonia --CTA:There is no evidence of pulmonary embolus in the main, lobar, or segmental pulmonary arteries. Multifocal airspace consolidation is consistent with the reported history of a viral pneumonia. Radiographic follow-up to resolution is recommended. Enlarged mediastinal and hilar nodes are likely reactive. 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 Received Remdesivir 1 dose on 07/02/21 Continue Baricitinib Day # 13/14 Continue dexamethasone as recommended by pulmonology Completed 5-day course of dexamethasone 20 mg Plan to continue dexamethasone 10 mg daily for 5 more days Lasix, Nebs PRN Continue Pulmonary Hygiene Encourage to prone as able Appreciate pulmonary input Currently on 45 L, 65% FiO2 Pneumomediastinum Subcutaneous emphysema Small left apical pneumothorax -Avoid positive airway pressure if possible. -Chest x-ray today showed worsening pneumothorax with mild midline shift Appreciate pulmonary input Monitor with series of chest x-ray May need thoracostomy if pneumothorax continues to worsen Thrombocythemia Likely secondary to Baricitinib Monitor Platelet count Hypertension GERD Mood disorder Continue home meds DVT Px: Lovenox SQ Code Status Full code Admission and Anticipated Discharge Date Admission Date: July 02, 2021 Subjective Patient is seen and examined at bedside Subjectively feels breathing is better Chest x-ray showed worsening pneumothorax Discussed with pulmonology today Denies chest pain, nausea, vomiting, abdominal pain, diarrhea, dizziness Review of Systems Review of Systems: All systems reviewed & are unremarkable except as noted in Subjective Physical Exam Physical Exam: Physical Exam: Vitals signs as noted above General Appearance:Moderately built and nourished, no apparent distress Head: normocephalic, Atraumatic Eyes: normal inspection, EOMI Neck: supple, Trachea midline Respiratory/Chest:Decreased breath sounds, CTA Cardiovascular: S1, S2, No murmur Abdomen/GI:Soft, Non tender, Bowel sounds present Extremities/Musculoskeletal:normal inspection, no edema Neurologic/Psych:AAOX3, grossly no focal neurological deficits Skin: normal color, warm Results & Data Results & Data ([facility]) Vital Signs (Past 12 Hours) Vital Signs Temp Pulse Pulse Resp BP BP Pulse Ox 07/15/21 15:25 78 07/15/21 11:24 94 H 22 88 L 07/15/21 10:52 37.2 C 88 19 147/88 H 88 L 07/15/21 08:00 83 07/15/21 07:31 80 18 88 L 07/15/21 07:03 37.1 C 73 19 150/86 H 89 L 07/15/21 03:52 36.7 C 75 18 155/84 H 91 Laboratory Results [facility] 07/15/21 06:22 Sodium 133 L Potassium 3.7 D Chloride 100 Carbon Dioxide 25 BUN 34 H Creatinine 0.91 Glucose 87 Calcium 9.0
--- NOTE | 2021-07-15 17:02 | XRay Report ---
XR chest 1V portable CLINICAL HISTORY: ptx COMPARISON STUDY: No previous studies for comparison. FINDINGS: Small to moderate left pneumothorax minimally decreased since prior exam. Bilateral airspac e opacities persist. There is no right pneumothorax. Cardiomediastinal silhouette is stable. IMPRESSION: 1. Slight decrease in size of a small to moderate left pneumothorax. 2. Persistent bilateral airspace opacities, similar to prior exam. ACT 112: Negative or not required by law. Electronically signed by: Aden Krueger M.D. 07/15/2021 5:01 PM
[2021-07-15] MEDS: LORazepam 0.5 MG TAB PO PRN (23:10)
[2021-07-16] MEDS ORDERED: POTASSIUM CHLORIDE CRTAB 20 MEQ TABCR PO STA (03:20)
[2021-07-16 04:16] LABS: Basophils # (auto) 0.01 K/uL (0-0.2); Basophils % (auto) 0.1 %; Eosinophils # (auto) 0.04 K/uL (0-0.5); Eosinophils % (auto) 0.3 %; Hematocrit (blood only) 43.9 % (37-47); Hemoglobin 14.7 g/dL (12.0-16.0); Immature Granulocytes # (auto) 0.17 K/uL (0.00-0.02); Immature Granulocytes % (auto) 1.2 %; Lymphocytes # (auto) 0.84 K/uL (1.2-3.4); Lymphocytes % (auto) 5.9 %; Mean Corpuscular Hemoglobin 30.9 pg (25-34); Mean Corpuscular Hgb Conc 33.5 g/dL (32-36); Mean Corpuscular Volume 92.2 fL (80-100); Mean Platelet Volume 9.9 fL (7.4-10.4); Monocytes # (auto) 1.17 K/uL (0.11-0.59); Monocytes % (auto) 8.2 %; Neutrophils # (auto) 12.11 K/uL (1.4-6.5); Neutrophils % (auto) 84.3 %; Platelet Count 849 K/uL (130-400); RDW Coefficient of Variation 12.5 % (11.5-14.5); Red Blood Count 4.76 M/uL (4.2-5.4); White Blood Count 14.34 K/uL (4.8-10.8)
[2021-07-16 04:41] LABS: BUN Creatinine Ratio 40.9 (10-20); Calcium 8.9 mg/dl (8.5-10.1); Creatinine Clr Calc Pharmacy 73.2 ml/min; Est GFR (African American) 95.6 ml/min; Est GFR (Non-African American) 82.5 ml/min; Magnesium 2.6 mg/dl (1.8-2.4); Potassium 4.3 mmol/L (3.5-5.1)
--- NOTE | 2021-07-16 08:14 | XRay Report ---
XR chest 1V portable CLINICAL HISTORY: Respiratory failure. COMPARISON STUDY: Chest radiograph July 15 at 4:21 PM. FINDINGS: Small left pneumothorax has decreased in size since prior exam. Superior pleural separation measures 1.5 cm. Airspace opacities persist. Cardiomediastinal silhouette is stable. Elevation of th e right hemidiaphragm is unchanged. There is no right pneumothorax. IMPRESSION: 1. Decrease in size of a small left pneumothorax. 2. No significant change in bilateral airspace opacities. ACT 112: Negative or not required by law. Electronically signed by: Aden Krueger M.D. 07/16/2021 8:13 AM
[2021-07-16] MEDS: BARICITINIB 2 MG TAB PO SCH (09:16)
[2021-07-16] MEDS: dexAMETHasone 10 MG in DEXTROSE 5% 25 ML IV SCH (09:16)
[2021-07-16] MEDS: MULTIVITAMIN TAB PO SCH (09:17)
[2021-07-16] MEDS: amLODIPine BESYLATE 5 MG TAB PO SCH (09:17)
[2021-07-16] MEDS: CYANOCOBALAMIN (VITAMIN B-12) 2,500 MCG TAB.SUBL SL SCH (09:18)
[2021-07-16] MEDS: ESCITALOPRAM OXALATE 10 MG TAB PO SCH (09:18)
[2021-07-16] MEDS: MONTELUKAST SODIUM 10 MG TABLET PO SCH (09:19)
[2021-07-16] MEDS: LORATADINE 10 MG TAB PO SCH (09:19)
[2021-07-16] MEDS: PANTOprazole 40 MG TAB PO SCH (09:19)
[2021-07-16] MEDS: FLUTICASONE PROPIONATE NA SPR 16 GM BTL SCH (09:20)
[2021-07-16] MEDS: ENOXAPARIN INJ 40 MG/0.4 ML SYR SQ SCH (09:20)
[2021-07-16] MEDS: INSULIN ASPART 100 UNITS/ML 3 ML PEN SC SCH ×4 (09:28→22:10)
--- NOTE | 2021-07-16 10:35 | Pulmonology Progress Note ---
Date of Service July 16, 2021 Assessment & Plan (1) Acute hypoxemic respiratory failure: (2) Pneumonia due to 2019 novel coronavirus: (3) Hypoxia: (4) Pneumomediastinum: (5) Pneumothorax, left: Plan: Impression: 56-year-old female not vaccinated for Covid presenting with acute Covid pneumonia and hypoxemic respiratory failure. Her course has been complicated by pneumomediastinum and a small apical left pneumothorax which is stable to slightly decreased on today's film. Nevertheless, her oxygen requirement and clinical status appears better. Recommendations: 1. Covid pneumonia: Currently on late-phase ARDS dexamethasone at 10 mg a day for 5 days. Recommend continuing baricitinib and follow clinically. Appears to be making some progress with regards to her tachypnea and oxygen requirement. 2. Hypoxemic respiratory failure: She is stable on oxygen currently. Continue to wean as tolerated 3. No evidence of PE on CT angiogram. Continue DVT prophylaxis. 4. Pneumomediastinum: Not unexpected given Covid. Continue supportive care. Avoid positive airway pressure if at all possible. Serial imaging is been stable and would defer additional imaging unless the patient's clinical condition should change. 5. Left pneumothorax: Slightly decreased on today's film. She is asymptomatic. Continue to avoid flutter or incentive spirometry and monitor clinically. Chest x-ray in a.m. Thank you for including us in the care of this patient. We will continue to follow with you for now. Admission and Anticipated Discharge Date Admission Date: July 02, 2021 Subjective Patient seen and examined. EMR reviewed. The patient reports that she feels better today. She is been able to wean off of high flow down to rigid wall at 15 L/min. Her oxygen saturations are in the low 90s. She is not coughing. She is tolerating a diet. No chest pain or crepitus. Review of Systems Review of Systems: Unchanged from prior Physical Exam Constitutional: WD/WN, vitals as above Neck: trachea midline, no thyromegaly Respiratory: + labored breathing and + tachypneic; no respiratory distress Cardiovascular: RRR, no murmur, no edema Gastrointestinal (Abdomen): normal bowel sounds, soft, nontender, no hepatosplenomegaly Musculoskeletal: Extremities: extremities normal to inspection Skin: no rashes, warm and dry Lymphatic: no cervical lymphadenopathy Results & Data Results & Data ([facility]) Vital Signs (Past 12 Hours) Vital Signs Temp Pulse Pulse Resp BP Pulse Ox 07/16/21 08:27 75 22 93 07/16/21 07:18 37.0 C 73 19 145/93 H 89 L 07/16/21 04:45 36.5 C 70 17 151/78 H 93 07/16/21 02:40 75 20 95 07/15/21 23:21 36.6 C 73 20 157/89 H 93 07/15/21 22:44 72 20 92 Laboratory Results 07/16/21 04:05 07/16/21 04:05 Diagnostic Findings Chest x-ray from today was independently reviewed. Shows decreasing size of the apical pneumothorax. PG Care Time/CCT Total # of Minutes Spent Total Time Spent with Patient: Total time spent is greater than 50% in coordination of care (as documented) at patient's floor/unit and/or counseling patient: Coding Level of Care Code 83351 Subseq Hosp Care Lvl 2 Diagnoses Acute hypoxemic respiratory failure J96.01 Pneumonia due to 2019 novel coronavirus U07.1; J12.82 Hypoxia R09.02 Pneumomediastinum J98.2 Pneumothorax, left J93.9
--- NOTE | 2021-07-16 16:03 | Hospitalist Progress Note ---
Date of Service July 16, 2021 Assessment & Plan (1) Acute hypoxemic respiratory failure: Plan: Patient is a 56 yr female with H/o hypertension, celiac disease, NAFLD presented 07/02 to our ED with complaint of shortness of breathworsening secondary to recent diagnosis of Covid positive at primary care office. Acute hypoxemic respiratory failure COVID 19 Pneumonia --CTA:There is no evidence of pulmonary embolus in the main, lobar, or segmental pulmonary arteries. Multifocal airspace consolidation is consistent with the reported history of a viral pneumonia. Radiographic follow-up to resolution is recommended. Enlarged mediastinal and hilar nodes are likely reactive. 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 Received Remdesivir 1 dose on 07/02/21 Continue Baricitinib to complete 14-day course. Continue dexamethasone as recommended by pulmonology Completed 5-day course of dexamethasone 20 mg Plan to continue dexamethasone 10 mg daily for 5 more days Lasix, Nebs PRN Continue Pulmonary Hygiene Encourage to prone as able Appreciate pulmonary input Currently on 15 L supplemental oxygen Will complete dexamethasone course in 2 days Pneumomediastinum Subcutaneous emphysema Small left apical pneumothorax -Avoid positive airway pressure if possible. -Chest x-ray today showed worsening pneumothorax with mild midline shift Appreciate pulmonary input Repeat chest x-ray showed decreased small left pneumothorax Thrombocythemia Likely secondary to Baricitinib Monitor Platelet count Platelet count trending down Hypertension GERD Mood disorder Continue home meds DVT Px: Lovenox SQ Code Status Full code Admission and Anticipated Discharge Date Admission Date: July 02, 2021 Subjective Patient is seen and examined at bedside States feeling much better today Requiring less oxygen to maintain saturations today Chest x-ray showed decreased left pneumothorax Denies any cough, dizziness, chest pain, nausea, abdominal pain No dyspnea while at rest Review of Systems Review of Systems: All systems reviewed & are unremarkable except as noted in Subjective Physical Exam Physical Exam: Physical Exam: Vitals signs as noted above General Appearance:Moderately built and nourished, no apparent distress Head: normocephalic, Atraumatic Eyes: normal inspection, EOMI Neck: supple, Trachea midline Respiratory/Chest:Decreased breath sounds, CTA Cardiovascular: S1, S2, No murmur Abdomen/GI:Soft, Non tender, Bowel sounds present Extremities/Musculoskeletal:normal inspection, no edema Neurologic/Psych:AAOX3, grossly no focal neurological deficits Skin: normal color, warm Results & Data Results & Data ([facility]) Vital Signs (Past 12 Hours) Vital Signs Temp Pulse Pulse Pulse Resp BP Pulse Ox 07/16/21 15:41 36.6 C 78 19 138/89 90 07/16/21 11:11 36.5 C 80 20 156/86 H 91 07/16/21 08:27 75 22 93 07/16/21 08:00 73 07/16/21 07:18 37.0 C 73 19 145/93 H 89 L 07/16/21 04:45 36.5 C 70 17 151/78 H 93 Pulse Ox 07/16/21 15:41 07/16/21 11:11 07/16/21 08:27 07/16/21 08:00 89 L 07/16/21 07:18 07/16/21 04:45 Laboratory Results Short CBC 07/16/21 Range/Units 04:05 WBC 14.34 H (4.8-10.8) K/uL Hgb 14.7 (12.0-16.0) g/dL Hct 43.9 (37-47) % Plt Count 849 H (130-400) K/uL BMP 07/16/21 04:05 Sodium 134 L Potassium 4.3 D Chloride 104 Carbon Dioxide 25 BUN 32 H Creatinine 0.79 Glucose 107 H Calcium 8.9
[2021-07-16] MEDS: LORazepam 0.5 MG TAB PO PRN (23:14)
[2021-07-17 06:24] LABS: Hemoglobin 15.4 g/dL (12.0-16.0); Mean Corpuscular Hemoglobin 31.2 pg (25-34); Mean Corpuscular Hgb Conc 33.5 g/dL (32-36); Mean Corpuscular Volume 93.1 fL (80-100); Mean Platelet Volume 10.4 fL (7.4-10.4); Platelet Count 847 K/uL (130-400); RDW Coefficient of Variation 12.6 % (11.5-14.5); RDW Standard Deviation 42.8 fL (36.4-46.3); Red Blood Count 4.94 M/uL (4.2-5.4); White Blood Count 15.68 K/uL (4.8-10.8)
[2021-07-17 07:06] LABS: BUN Creatinine Ratio 41.9 (10-20); Calcium 9.2 mg/dl (8.5-10.1); Creatinine Clr Calc Pharmacy 67.7 ml/min; Est GFR (African American) 86.3 ml/min; Est GFR (Non-African American) 74.5 ml/min
[2021-07-17 07:32] LABS: Potassium 5.1 mmol/L (3.5-5.1)
--- NOTE | 2021-07-17 07:41 | XRay Report ---
XR chest 1V portable HISTORY: 56 years-old Female resp failure acute respiratory failure COMPARISON: Chest radiograph 07/16/2021 TECHNIQUE: Portable AP view of the chest FINDINGS: Cardiomediastinal and hilar silhouettes are unchanged. Small left apical pneumothorax with pleural se paration of 1.7 cm appears stable from comparison. Unchanged right hemidiaphragmatic elevation. Inter stitial coarsening with ill-defined bilateral airspace opacities within a peripheral prominent distri bution redemonstrated, generally unchanged from comparison. No acute fracture. IMPRESSION: 1. Unchanged small left apical pneumothorax. 2. Stable bilateral peripheral predominant airspace opacities suggestive of pneumonia. ACT 112: Negative or not required by law. The above report was generated using voice recognition software. It may contain grammatical, syntax o r spelling errors. Electronically signed by: Joseph Nance M.D. 07/17/2021 7:39 AM
[2021-07-17] MEDS: dexAMETHasone 10 MG in DEXTROSE 5% 25 ML IV SCH (09:00)
[2021-07-17] MEDS: ENOXAPARIN INJ 40 MG/0.4 ML SYR SQ SCH (09:01)
[2021-07-17] MEDS: INSULIN ASPART 100 UNITS/ML 3 ML PEN SC SCH ×4 (09:02→20:41)
[2021-07-17] MEDS: MONTELUKAST SODIUM 10 MG TABLET PO SCH (09:02)
[2021-07-17] MEDS: ESCITALOPRAM OXALATE 10 MG TAB PO SCH (09:02)
[2021-07-17] MEDS: amLODIPine BESYLATE 5 MG TAB PO SCH (09:04)
[2021-07-17] MEDS: CYANOCOBALAMIN (VITAMIN B-12) 2,500 MCG TAB.SUBL SL SCH (09:04)
[2021-07-17] MEDS: PANTOprazole 40 MG TAB PO SCH (09:04)
[2021-07-17] MEDS: MULTIVITAMIN TAB PO SCH (09:04)
[2021-07-17] MEDS: LORATADINE 10 MG TAB PO SCH (09:04)
[2021-07-17] MEDS: FLUTICASONE PROPIONATE NA SPR 16 GM BTL SCH (09:04)
--- NOTE | 2021-07-17 11:50 | Pharmacy Report ---
Pharmacy Glycemic Short Note 2 - Date of Service July 17, 2021 - Glycemic Short BSG Results (Last 24 hours): 07/16/21 07/16/21 07/17/21 16:43 20:56 05:24 Glucose 87 POC Glucose 139 H 110 H 07/17/21 07/17/21 07:21 11:38 Glucose POC Glucose 100 H 127 H OUTPATIENT ANTIDIABETIC REGIMEN: * None * HbA1c 6.8% on 07/02/21 ASSESSMENT: 07/17: * Pt continues to be well controlled with current novolog parameters. Dex to stop after tomorrows dose. Will monitor need for loosening novolog. 07/14 * Controlled with current novolog parameters, dexamethasone decreased to 10 mg today, will monitor for need to loosen 07/12: * Patient well controlled overall over the past few days. Continue with current novolog scale. 07/10 * Patient's BSGs yesterday [phone] mg/dL * Dexamethasone increased to 20 mg daily, anticipate for 5 days then taper * Fasting today 97 mg/dL- continue to hold lantus * will continue current novolog parameters 07/08 * Patient's BSGs yesterday were [phone] mg/dL. Patient received 8 units of insulin (0 units of basal and 8 units of bolus). * Fasting today was 97 mg/dL. * Continue to hold Lantus. * BSGs trend up throughout the day so tighten CR as this is primarily affected by steroids. 07/07 * Stressors stable * Patient received 8 units of prandial/correctional insulin with adequate control * Fasting 91 mg/dL, will continue to hold basal for now * No change to novolog. 07/06 * Stressors stable * Patient received 11 units of insulin yesterday (10 basal, 1 bolus), with BSG's ranging 92-148 mg/dL * AM fasting BSG well below goal range despite minimal basal insulin yesterday - will hold * Post-prandial BSG's yesterday good although po intake poor - no change to Novolog 07/05 * Stressors stable * AM fasting BSG below goal range - will significantly reduce NPH * Post-prandial BSG's yesterday good - no change to Novolog 07/04 * 56 yo F with new diagnosis of diabetes admitted with COVID-19 and on steroids * Pharmacy consulted on day 3 of admission. AM random BSG's have ranged 140-176 mg/dL over the last 3 days * Will start NPH to mimic PK of dexamethasone, but will not be aggressive as AM fasting this AM is in goal range without basal insulin (although at the upper end of goal) * Will start Novolog ACHS between weight-based moderate to severe stress estimate. Will adjust based on trend in BSG's PLAN FOR INPATIENT GLYCEMIC CONTROL: * Basal insulin * hold * Bolus insulin * NovoLog per scale ACHS or Q6hrs while NPO * Goal Range: Low 110 mg/dL - High 140 mg/dL * Correction Factor: 25 mg/dL/unit * Nutritional / Prandial insulin per carb ratio of 1 unit per 5 grams CHO consumed PLAN FOR DISCHARGE: * see note from 07/06
[2021-07-17] MEDS ORDERED: FUROSEMIDE 20 MG in SYRINGE 0 ML IV ONE (13:41)
--- NOTE | 2021-07-17 13:52 | Hospitalist Progress Note ---
Date of Service July 17, 2021 Assessment & Plan (1) Acute hypoxemic respiratory failure: Plan: Patient is a 56 yr female with H/o hypertension, celiac disease, NAFLD presented 07/02 to our ED with complaint of shortness of breathworsening secondary to recent diagnosis of Covid positive at primary care office. Acute hypoxemic respiratory failure COVID 19 Pneumonia --CTA:There is no evidence of pulmonary embolus in the main, lobar, or segmental pulmonary arteries. Multifocal airspace consolidation is consistent with the reported history of a viral pneumonia. Radiographic follow-up to resolution is recommended. Enlarged mediastinal and hilar nodes are likely reactive. 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 Received Remdesivir 1 dose on 07/02/21 Baricitinib doses have been completed on 07/17/2021 Completed 5-day course of dexamethasone 20 mg Plan to continue dexamethasone 10 mg daily for untill 07/18/2021 Lasix, Nebs PRN Continue Pulmonary Hygiene Encourage to prone as able Appreciate pulmonary input and recommendation Condition has been worse since last night and is requiring 6 L of oxygen at 100% FiO2 to maintain saturation We will continue current management Pneumomediastinum Subcutaneous emphysema Small left apical pneumothorax -Avoid positive airway pressure if possible. -Chest x-ray today showed worsening pneumothorax with mild midline shift Appreciate pulmonary input Repeat chest x-ray showed decreased small left pneumothorax-unchanged small left apical pneumothorax as on 07/17/2021 Thrombocythemia Likely secondary to Baricitinib Monitor Platelet count Platelet count trending down Hypertension GERD Mood disorder Continue home meds DVT Px: Lovenox SQ Code Status Full code Admission and Anticipated Discharge Date Admission Date: July 02, 2021 Subjective 07/17/2021 The patient was seen and examined in telemetry unit and in the Covid room She was doing much better as of yesterday but her condition has gotten worse since last night She has been requiring 6 L/min 100% FiO2 to maintain saturation this morning Sitting on a chair without any acute distress Has had blood-tinged bowel movement this morning without any obvious bleeding Review of Systems Review of Systems: All systems reviewed and are unremarkable except as noted below Respiratory: Mild to moderate shortness of breath at rest Physical Exam Constitutional: well developed, well nourished, + ill appearing and average body habitus Eyes: PERRL, conjunctivae normal, anicteric sclerae ENMT: external ear and nose normal, oropharynx normal Neck: trachea midline, no thyromegaly Respiratory: + respiratory distress and + cough Auscultation: + diminished lung sounds and + crackles (At the bases) Cardiovascular: Rate/Rhythm: regular rate and regular rhythm; not tachycardic Heart Sounds: normal S1 and normal S2; no murmur Extremities: no edema Gastrointestinal (Abdomen): Inspection/Auscultation: normal bowel sounds; abdomen not distended Percussion/Palpation: abdomen soft; abdomen nontender Musculoskeletal: No acute arthritis in any joint Neurologic: Alert, awake and oriented x3. Generally weak but no focal sensory and motor deficit appreciated Lymphatic: no cervical or axillary lymphadenopathy Results & Data Results & Data ([facility]) Vital Signs (Past 12 Hours) Vital Signs Temp Pulse Pulse Pulse Resp BP Pulse Ox 07/17/21 12:22 24 90 07/17/21 08:00 78 07/17/21 07:00 36.5 C 97 H 17 170/90 H 89 L 07/17/21 03:01 36.6 C 89 20 171/98 H 96 Pulse Ox 07/17/21 12:22 07/17/21 08:00 89 L 07/17/21 07:00 07/17/21 03:01 Laboratory Results Short CBC 07/17/21 Range/Units 05:24 WBC 15.68 H (4.8-10.8) K/uL Hgb 15.4 (12.0-16.0) g/dL Hct 46.0 (37-47) % Plt Count 847 H (130-400) K/uL BMP 07/17/21 07/17/21 05:24 05:24 Sodium 135 L Potassium 5.1 D Chloride 103 Carbon Dioxide 26 BUN 36 H Creatinine 0.86 Glucose 87 Calcium 9.2 Liver Function 07/17/21 Range/Units 05:24 AST 19 (15-37) U/L Medications Administered Current Inpatient Medications Acetaminophen (Acetaminophen 325 Mg Tab) 650 mg PO Q4H PRN PRN Reason: Pain or Fever Stop: 08/01/21 21:59 Last Admin: 07/08/21 20:30 Dose: 650 mg Documented by: Amlodipine Besylate (Amlodipine Besylate 5 Mg Tab) 5 mg PO QAM [facility] Stop: 08/06/21 09:59 Last Admin: 07/17/21 09:04 Dose: 5 mg Documented by: Cyanocobalamin (Cyanocobalamin (Vitamin B-12) 2,500 Mcg Tab.Subl) 2,500 mcg SL [facility] Stop: 08/02/21 08:59 Last Admin: 07/17/21 09:04 Dose: 2,500 mcg Documented by: Dextrose (Dextrose 50% 50 Ml Syringe) 25 - 50 ml IV UD PRN; Protocol PRN Reason: Hypoglycemia Protocol Stop: 08/03/21 09:55 Enoxaparin Sodium (Enoxaparin Inj 40 Mg/0.4 Ml Syr) [facility] Stop: 08/09/21 13:59 Last Admin: 07/17/21 09:01 Dose: 40 mg Documented by: Escitalopram Oxalate (Escitalopram Oxalate 10 Mg Tab) 5 mg PO DAILY [facility] Stop: 08/02/21 08:59 Last Admin: 07/17/21 09:02 Dose: 5 mg Documented by: Fluticasone Propionate (Fluticasone Propionate Na Spr 16 Gm Btl) 1 sprays NA [facility] Stop: 08/02/21 08:59 Last Admin: 07/17/21 09:04 Dose: 1 sprays Documented by: Furosemide (Furosemide Inj 10 Mg/Ml 2 Ml Vial) 20 mg IV ONE ONE Stop: 07/17/21 14:01 Glucagon (Glucagon For Inj 1 Mg Vial) 1 mg SQ UD PRN; Protocol PRN Reason: Hypoglycemia Protocol Stop: 08/03/21 09:55 Glucose (Glucose 10 Tabs/Tube) 4 - 8 tabs PO UD PRN; Protocol PRN Reason: Hypoglycemia Protocol Stop: 08/03/21 09:55 Glucose (Glucose 40% Gel 15 Gm Tube) 15 - 30 gm PO UD PRN; Protocol PRN Reason: Hypoglycemia Protocol Stop: 08/03/21 09:55 Promethazine HCl 12.5 mg/ (Sodium Chloride) 50.5 mls @ 202 mls/hr IV Q6H PRN PRN Reason: Nausea And Vomiting Stop: 08/01/21 21:59 Dexamethasone 10 mg/ Dextrose 27.5 mls @ 60 mls/hr IV DAILY [facility] Stop: 07/18/21 09:28 Last Admin: 07/17/21 09:00 Dose: 60 mls/hr Documented by: Insulin Aspart (Insulin Aspart 100 Units/Ml 3 Ml Pen) 0 units SC ACHS [facility]; Protocol Stop: 08/03/21 11:29 Last Admin: 07/17/21 13:01 Dose: 7 units Documented by: Ipratropium [place] (Ipratropium [place] Neb Soln 0.02% 2.5 Ml Vial) 0.5 mg INH Q4H PRN PRN Reason: sob/wheezing Stop: 08/01/21 21:59 Levalbuterol HCl (Levalbuterol 1.25mg/0.5ml Neb) 1.25 mg INH Q4H PRN PRN Reason: sob/wheezing Stop: 08/01/21 21:59 Loratadine (Loratadine 10 Mg Tab) 10 mg PO DAILY [facility] Stop: 08/02/21 08:59 Last Admin: 07/17/21 09:04 Dose: 10 mg Documented by: Lorazepam (Lorazepam 0.5 Mg Tab) 0.5 mg PO HS PRN PRN Reason: Anxiety Stop: 08/13/21 18:18 Last Admin: 07/16/21 23:14 Dose: 0.5 mg Documented by: Miscellaneous (Carbohydrates For Hypoglycemia ) 15 - 30 gm PO UD PRN PRN Reason: Hypoglycemia Protocol Stop: 08/03/21 09:55 Miscellaneous Information (Pharmacy Glycemic Mgmt Consult) 1 ea N/A UD PRN; Protocol PRN Reason: Consult Stop: 08/03/21 09:55 Montelukast Sodium (Montelukast Sodium 10 Mg Tablet) 10 mg PO QAM [facility] Stop: 08/02/21 08:59 Last Admin: 07/17/21 09:02 Dose: 10 mg Documented by: Multivitamins (Multivitamin Tab) 1 tab PO DAILY [facility] Stop: 08/02/21 08:59 Last Admin: 07/17/21 09:04 Dose: 1 tab Documented by: Pantoprazole Sodium (Pantoprazole 40 Mg Tab) 40 mg PO DAILY [facility] Stop: 08/02/21 08:59 Last Admin: 07/17/21 09:04 Dose: 40 mg Documented by:
--- NOTE | 2021-07-17 13:52 | Pulmonology Progress Note ---
Date of Service July 17, 2021 Assessment & Plan (1) Acute hypoxemic respiratory failure: (2) Pneumonia due to 2019 novel coronavirus: (3) Hypoxia: (4) Pneumomediastinum: (5) Pneumothorax, left: (6) ARDS (adult respiratory distress syndrome): (7) Thrombocytosis: Plan: Impression: 56-year-old female, unvaccinated for Covid, presenting with acute Covid pneumonia and hypoxemic respiratory failure. Her course has been complicated by pneumomediastinum and a small apical left pneumothorax. Recommendations: 1. Covid pneumonia: Currently on late-phase ARDS dexamethasone at 10 mg a day for 5 days. She completed 14 days of baricitinib. Her oxygen requirements have increased today. We discussed the possibility of intubation and mechanical ventilation. She became very emotional. I spoke to her daughter as well and updated her. The patient and daughter are agreeable to intubation mechanical ventilation if absolutely necessary. We will give a dose of 20 mg IV Lasix. I decreased her flow rate from 60 L to 40 L to hopefully decrease her airway press ures given the presence of the pneumothorax. 2. Hypoxemic respiratory failure: Continue to wean oxygen to maintain saturations above 90%. 3. Pneumomediastinum and pneumothorax: The pneumomediastinum appears to be largely resolved. There continues to be evidence of an apical left pneumothorax. We will continue to monitor and treat conservatively. Should she have decompensation, will consider placing a chest tube. We will try to minimize the use of positive airway pressure due to the possibility of worsening the pneumothorax. 4. Thrombocytosis: Etiology is unclear but likely an acute phase reactant due to her inflammatory state from COVID-19. Continue DVT prophylaxis. Recommend discussion with hematology should her platelet count increase. Her overall prognosis is very guarded at this time. There is a high risk for clinical deterioration and the need for intubation and mechanical ventilation. Patient discussed with nurse at bedside. CRITICAL CARE TIME - I have personally spent 34 minutes of critical care time in the direct management of this patient. This is a life/limb threatening event. This includes time spent evaluating patient, direct bedside care, chart review, placing orders, interpretation of diagnostic studies, discussion with consultants, patient, and family members, as well as other required patient management activities. This time is exclusive of all separately billable procedures, and teaching time and separate from and in addition to any other critical care service time. Thank you for including us in the care of this patient. We will continue to follow with you for now. Admission and Anticipated Discharge Date Admission Date: July 02, 2021 Subjective Patient was very emotional today due to her increasing oxygen demands. She denies any chest pain. She is currently on 40 L and 100% FiO2 saturating 90 to 91%. She is sitting up in a chair. She does not have any significant lower extremity edema. Review of Systems Review of Systems: All systems reviewed & are unremarkable except as noted in HPI & below Physical Exam Constitutional: WD/WN, vitals as above Neck: trachea midline, no thyromegaly Respiratory: + tachypneic; no respiratory distress and no audible wheezes Cardiovascular: RRR, no murmur, no edema Chest (Breasts): Additional Comments: No crepitus palpated Gastrointestinal (Abdomen): normal bowel sounds, soft, nontender, no hepatosplenomegaly Musculoskeletal: Extremities: extremities normal to inspection Skin: no rashes, warm and dry Psychiatric: Emotional and sad Lymphatic: no cervical lymphadenopathy Results & Data Results & Data ([facility]) Vital Signs (Past 12 Hours) Vital Signs Temp Pulse Pulse Pulse Resp BP Pulse Ox 07/17/21 12:22 24 90 07/17/21 08:00 78 07/17/21 07:00 97.7 F 97 H 17 170/90 H 89 L 07/17/21 03:01 97.9 F 89 20 171/98 H 96 Pulse Ox 07/17/21 12:22 07/17/21 08:00 89 L 07/17/21 07:00 07/17/21 03:01 Vital signs, labs and imaging reviewed. Persistent left apical pneumothorax on chest x-ray PG Care Time/CCT Total # of Minutes Spent Total Time Spent with Patient: Total time spent is greater than 50% in coordination of care (as documented) at patient's floor/unit and/or counseling patient: Coding Level of Care Code Critical Care 1st 30-74 mins Diagnoses Acute hypoxemic respiratory failure J96.01 Pneumonia due to 2019 novel coronavirus U07.1; J12.82 Hypoxia R09.02 Pneumomediastinum J98.2 Pneumothorax, left J93.9 ARDS (adult respiratory distress syndrome) J80 Thrombocytosis D75.839 Time Spent (min) 34
[2021-07-17] MEDS ORDERED: FUROSEMIDE INJ 20 MG/2 ML VIAL IV ONE (14:00)
[2021-07-17] MEDS: LORazepam 0.5 MG TAB PO PRN (22:57)
[2021-07-18 07:15] LABS: BUN Creatinine Ratio 38.7 (10-20); Calcium 9.4 mg/dl (8.5-10.1); Creatinine Clr Calc Pharmacy 57.2 ml/min; Est GFR (African American) 71.1 ml/min; Est GFR (Non-African American) 61.3 ml/min; Magnesium 2.6 mg/dl (1.8-2.4); Phosphorus 3.9 mg/dl (2.5-4.9); Potassium 4.1 mmol/L (3.5-5.1)
[2021-07-18] MEDS: PANTOprazole 40 MG TAB PO SCH (08:52)
[2021-07-18] MEDS: LORATADINE 10 MG TAB PO SCH (08:52)
[2021-07-18] MEDS: MULTIVITAMIN TAB PO SCH (08:52)
[2021-07-18] MEDS: amLODIPine BESYLATE 5 MG TAB PO SCH (08:52)
[2021-07-18] MEDS: ESCITALOPRAM OXALATE 10 MG TAB PO SCH (08:53)
[2021-07-18] MEDS: CYANOCOBALAMIN (VITAMIN B-12) 2,500 MCG TAB.SUBL SL SCH (08:53)
[2021-07-18] MEDS: FLUTICASONE PROPIONATE NA SPR 16 GM BTL SCH (08:53)
[2021-07-18] MEDS: ENOXAPARIN INJ 40 MG/0.4 ML SYR SQ SCH (08:53)
[2021-07-18] MEDS: MONTELUKAST SODIUM 10 MG TABLET PO SCH (08:53)
[2021-07-18] MEDS: INSULIN ASPART 100 UNITS/ML 3 ML PEN SC SCH ×4 (09:02→21:14)
[2021-07-18] MEDS: dexAMETHasone 10 MG in DEXTROSE 5% 25 ML IV SCH (09:03)
--- NOTE | 2021-07-18 09:11 | XRay Report ---
XR chest 1V portable HISTORY: Respiratory failure. COMPARISON: Chest 07/17/2021. FINDINGS: The left apical pneumothorax appears to have resolved in the interval. No pleural effusions . The heart is normal in size. There is chronic elevation the right hemidiaphragm. Facial thickening and bilateral peripheral predominant airspace opacities persist. IMPRESSION: 1. The left pneumothorax appears to have resolved in the interval. 2. No change in the peripheral predominant airspace opacities. ACT 112: Negative or not required by law. Electronically signed by: Kendell Tavares M.D. 07/18/2021 9:10 AM
--- NOTE | 2021-07-18 15:31 | Pulmonology Progress Note ---
Date of Service July 18, 2021 Assessment & Plan (1) Acute hypoxemic respiratory failure: (2) Pneumonia due to 2019 novel coronavirus: (3) Hypoxia: (4) Pneumomediastinum: (5) Pneumothorax, left: (6) ARDS (adult respiratory distress syndrome): (7) Thrombocytosis: Plan: Impression: 56-year-old female, unvaccinated for Covid, presenting with acute Covid pneumonia and hypoxemic respiratory failure. Her course has been complicated by pneumomediastinum and a small apical left pneumothorax. Recommendations: 1. Covid pneumonia: Currently on late-phase ARDS dexamethasone at 10 mg a day for 5 days. She completed 14 days of baricitinib. Oxygenation substantially improved today. I have weaned her down to 9 L. Continue to wean oxygen to maintain oxygen saturations of 90 to 92%. I reiterated to her that she will likely need supplemental oxygen upon discharge. 3. Pneumomediastinum and pneumothorax: Resolved. No further imaging required at this time. 4. Thrombocytosis: Etiology is unclear but likely an acute phase reactant due to her inflammatory state from COVID-19. Continue DVT prophylaxis. Recommend discussion with hematology should her platelet count increase. Her overall prognosis is very guarded at this time. There is a high risk for clinical deterioration and the need for intubation and mechanical ventilation. Patient discussed with bedside RN. Pulmonary will sign off. Please call with questions. Thank you for the consult. Admission and Anticipated Discharge Date Admission Date: July 02, 2021 Subjective Patient shortness of breath significantly improved today. She is currently on 12 L of oxygen which is a significant improvement compared to yesterday. She denies any coughing or chest pain at the moment. She has been sitting in a chair for the most part of today. Review of Systems Review of Systems: All systems reviewed & are unremarkable except as noted in HPI & below Physical Exam Constitutional: WD/WN, vitals as above Neck: trachea midline, no thyromegaly Respiratory: no respiratory distress and no audible wheezes (Diminished bilaterally) Cardiovascular: RRR, no murmur, no edema Chest (Breasts): Additional Comments: No crepitus palpated Gastrointestinal (Abdomen): normal bowel sounds, soft, nontender, no hepatosplenomegaly Musculoskeletal: Extremities: extremities normal to inspection Skin: no rashes, warm and dry Psychiatric: Emotional and sad Lymphatic: no cervical lymphadenopathy Results & Data Results & Data ([facility]) Vital Signs (Past 12 Hours) Vital Signs Temp Pulse Resp BP Pulse Ox Pulse Ox 07/18/21 11:07 99.0 F 86 14 145/82 H 91 07/18/21 08:00 91 07/18/21 07:56 98.1 F 79 20 138/82 91 Chest x-ray reviewed. Pneumothorax resolved. PG Care Time/CCT Total # of Minutes Spent Total Time Spent with Patient: Total time spent is greater than 50% in coordination of care (as documented) at patient's floor/unit and/or counseling patient: Coding Level of Care Code 75755 Subseq Hosp Care Lvl 2 Diagnoses Acute hypoxemic respiratory failure J96.01 Pneumonia due to 2019 novel coronavirus U07.1; J12.82 Hypoxia R09.02 Pneumomediastinum J98.2 Pneumothorax, left J93.9 ARDS (adult respiratory distress syndrome) J80 Thrombocytosis D75.839
--- NOTE | 2021-07-18 16:51 | Hospitalist Progress Note ---
Date of Service July 18, 2021 Assessment & Plan (1) Acute hypoxemic respiratory failure: Plan: Patient is a 56 yr female with H/o hypertension, celiac disease, NAFLD presented 07/02 to our ED with complaint of shortness of breathworsening secondary to recent diagnosis of Covid positive at primary care office. Acute hypoxemic respiratory failure COVID 19 Pneumonia --CTA:There is no evidence of pulmonary embolus in the main, lobar, or segmental pulmonary arteries. Multifocal airspace consolidation is consistent with the reported history of a viral pneumonia. Radiographic follow-up to resolution is recommended. Enlarged mediastinal and hilar nodes are likely reactive. -Symptoms for 10 days [employer]. 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 Received Remdesivir 1 dose on 07/02/21 Baricitinib doses have been completed on 07/17/2021 Completed 5-day course of dexamethasone 20 mg Plan to continue dexamethasone 10 mg daily for untill 07/18/2021 Lasix, Nebs PRN Continue Pulmonary Hygiene Encourage to prone as able Appreciate pulmonary input and recommendation Clinically a little better today and has been requiring 8 to 12 L of oxygen to maintain saturation We will continue current management Pneumomediastinum Subcutaneous emphysema Small left apical pneumothorax -Avoid positive airway pressure if possible. -Chest x-ray today showed worsening pneumothorax with mild midline shift Appreciate pulmonary input Repeat chest x-ray showed decreased small left pneumothorax-unchanged small left apical pneumothorax as on 07/17/2021 Repeat chest x-ray did not show any pneumothorax on the left side Thrombocythemia Likely secondary to Baricitinib Monitor Platelet count Platelet count trending down Hypertension GERD Mood disorder Continue home meds DVT Px: Lovenox SQ Code Status Full code Admission and Anticipated Discharge Date Admission Date: July 02, 2021 Subjective 07/17/2021 The patient was seen and examined in telemetry unit and in the Covid room She was doing much better as of yesterday but her condition has gotten worse since last night She has been requiring 6 L/min 100% FiO2 to maintain saturation this morning Sitting on a chair without any acute distress Has had blood-tinged bowel movement this morning without any obvious bleeding 07/18/2021 The patient was seen and examined in telemetry unit and in the Covid room She has been feeling little better today and has been smiling Denies any cough and/or shortness of breath at rest Has been requiring anywhere from 8 to 12 L oxygen to maintain saturation Review of Systems Review of Systems: All systems reviewed and are unremarkable except as noted below Respiratory: Mild shortness of breath at rest Physical Exam Constitutional: well developed, well nourished, + ill appearing and average body habitus Eyes: PERRL, conjunctivae normal, anicteric sclerae ENMT: external ear and nose normal, oropharynx normal Neck: trachea midline, no thyromegaly Respiratory: + respiratory distress and + cough Auscultation: + diminished lung sounds and + crackles (At the bases) Cardiovascular: Rate/Rhythm: regular rate and regular rhythm; not tachycardic Heart Sounds: normal S1 and normal S2; no murmur Extremities: no edema Gastrointestinal (Abdomen): Inspection/Auscultation: normal bowel sounds; abdomen not distended Percussion/Palpation: abdomen soft; abdomen nontender Musculoskeletal: No acute arthritis in any joint Neurologic: Alert, awake and oriented x3 Lymphatic: no cervical or axillary lymphadenopathy Results & Data Results & Data ([facility]) Vital Signs (Past 12 Hours) Vital Signs Temp Pulse Resp BP Pulse Ox Pulse Ox 07/18/21 15:25 36.9 C 76 20 146/79 H 92 07/18/21 11:07 37.2 C 86 14 145/82 H 91 07/18/21 08:00 91 07/18/21 07:56 36.7 C 79 20 138/82 91 Laboratory Results [facility] 07/18/21 05:35 Sodium 135 L Potassium 4.1 D Chloride 101 Carbon Dioxide 29 BUN 39 H Creatinine 1.01 Glucose 92 Calcium 9.4 Medications Administered Current Inpatient Medications Acetaminophen (Acetaminophen 325 Mg Tab) 650 mg PO Q4H PRN PRN Reason: Pain or Fever Stop: 08/01/21 21:59 Last Admin: 07/08/21 20:30 Dose: 650 mg Documented by: Amlodipine Besylate (Amlodipine Besylate 5 Mg Tab) [facility] Stop: 08/06/21 09:59 Last Admin: 07/18/21 08:52 Dose: 5 mg Documented by: Cyanocobalamin (Cyanocobalamin (Vitamin B-12) 2,500 Mcg Tab.Subl) 2,500 mcg SL [facility] Stop: 08/02/21 08:59 Last Admin: 07/18/21 08:53 Dose: 2,500 mcg Documented by: Dextrose (Dextrose 50% 50 Ml Syringe) 25 - 50 ml IV UD PRN; Protocol PRN Reason: Hypoglycemia Protocol Stop: 08/03/21 09:55 Enoxaparin Sodium (Enoxaparin Inj 40 Mg/0.4 Ml Syr) 40 mg SQ QAM [facility] Stop: 08/09/21 13:59 Last Admin: 07/18/21 08:53 Dose: 40 mg Documented by: Escitalopram Oxalate (Escitalopram Oxalate 10 Mg Tab) 5 mg PO DAILY [facility] Stop: 08/02/21 08:59 Last Admin: 07/18/21 08:53 Dose: 5 mg Documented by: Fluticasone Propionate (Fluticasone Propionate Na Spr 16 Gm Btl) 1 sprays NA [facility]AM [facility] Stop: 08/02/21 08:59 Last Admin: 07/18/21 08:53 Dose: 1 sprays Documented by: Glucagon (Glucagon For Inj 1 Mg Vial) 1 mg SQ UD PRN; Protocol PRN Reason: Hypoglycemia Protocol Stop: 08/03/21 09:55 Glucose (Glucose 10 Tabs/Tube) 4 - 8 tabs PO UD PRN; Protocol PRN Reason: Hypoglycemia Protocol Stop: 08/03/21 09:55 Glucose (Glucose 40% Gel 15 Gm Tube) 15 - 30 gm PO UD PRN; Protocol PRN Reason: Hypoglycemia Protocol Stop: 08/03/21 09:55 Promethazine HCl 12.5 mg/ (Sodium Chloride) 50.5 mls @ 202 mls/hr IV Q6H PRN PRN Reason: Nausea And Vomiting Stop: 08/01/21 21:59 Insulin Aspart (Insulin Aspart 100 Units/Ml 3 Ml Pen) 0 units SC [facility]; Protocol Stop: 08/03/21 11:29 Last Admin: 07/18/21 12:47 Dose: 11 units Documented by: Ipratropium [place] (Ipratropium [place] Neb Soln 0.02% 2.5 Ml Vial) 0.5 mg INH Q4H PRN PRN Reason: sob/wheezing Stop: 08/01/21 21:59 Levalbuterol HCl (Levalbuterol 1.25mg/0.5ml Neb) 1.25 mg INH Q4H PRN PRN Reason: sob/wheezing Stop: 08/01/21 21:59 Loratadine (Loratadine 10 Mg Tab) 10 mg PO DAILY [facility] Stop: 08/02/21 08:59 Last Admin: 07/18/21 08:52 Dose: 10 mg Documented by: Lorazepam (Lorazepam 0.5 Mg Tab) 0.5 mg PO HS PRN PRN Reason: Anxiety Stop: 08/13/21 18:18 Last Admin: 07/17/21 22:57 Dose: 0.5 mg Documented by: Miscellaneous (Carbohydrates For Hypoglycemia ) 15 - 30 gm PO UD PRN PRN Reason: Hypoglycemia Protocol Stop: 08/03/21 09:55 Miscellaneous Information (Pharmacy Glycemic Mgmt Consult) 1 ea N/A UD PRN; Protocol PRN Reason: Consult Stop: 08/03/21 09:55 Montelukast Sodium (Montelukast Sodium 10 Mg Tablet) 10 mg PO QAM [facility] Stop: 08/02/21 08:59 Last Admin: 07/18/21 08:53 Dose: 10 mg Documented by: Multivitamins (Multivitamin Tab) 1 tab PO DAILY [facility] Stop: 08/02/21 08:59 Last Admin: 07/18/21 08:52 Dose: 1 tab Documented by: Pantoprazole Sodium (Pantoprazole 40 Mg Tab) 40 mg PO DAILY [facility] Stop: 08/02/21 08:59 Last Admin: 07/18/21 08:52 Dose: 40 mg Documented by:
[2021-07-18] MEDS: LORazepam 0.5 MG TAB PO PRN (22:33)
[2021-07-19 06:12] LABS: Basophils # (auto) 0.02 K/uL (0-0.2); Basophils % (auto) 0.1 %; Eosinophils # (auto) 0.02 K/uL (0-0.5); Eosinophils % (auto) 0.1 %; Hematocrit (blood only) 44.9 % (37-47); Hemoglobin 14.9 g/dL (12.0-16.0); Immature Granulocytes # (auto) 0.19 K/uL (0.00-0.02); Mean Corpuscular Hgb Conc 33.2 g/dL (32-36); Mean Corpuscular Volume 93.3 fL (80-100); Mean Platelet Volume 10.1 fL (7.4-10.4); Monocytes # (auto) 0.93 K/uL (0.11-0.59); Monocytes % (auto) 4.9 %; Neutrophils # (auto) 15.79 K/uL (1.4-6.5); Neutrophils % (auto) 82.9 %; Platelet Count 803 K/uL (130-400); RDW Coefficient of Variation 12.6 % (11.5-14.5); RDW Standard Deviation 43.2 fL (36.4-46.3); Red Blood Count 4.81 M/uL (4.2-5.4); White Blood Count 19.05 K/uL (4.8-10.8)
[2021-07-19] MEDS: amLODIPine BESYLATE 5 MG TAB PO SCH (06:37)
[2021-07-19 07:02] LABS: Creatinine Clr Calc Pharmacy 65.3 ml/min; Est GFR (African American) 82.8 ml/min; Est GFR (Non-African American) 71.4 ml/min
[2021-07-19] MEDS: CYANOCOBALAMIN (VITAMIN B-12) 2,500 MCG TAB.SUBL SL SCH (08:47)
[2021-07-19] MEDS: ENOXAPARIN INJ 40 MG/0.4 ML SYR SQ SCH (08:48)
[2021-07-19] MEDS: MULTIVITAMIN TAB PO SCH (08:50)
[2021-07-19] MEDS: ESCITALOPRAM OXALATE 10 MG TAB PO SCH (08:50)
[2021-07-19] MEDS: LORATADINE 10 MG TAB PO SCH (08:50)
[2021-07-19] MEDS: MONTELUKAST SODIUM 10 MG TABLET PO SCH (08:50)
[2021-07-19] MEDS: FLUTICASONE PROPIONATE NA SPR 16 GM BTL SCH (08:50)
[2021-07-19] MEDS: PANTOprazole 40 MG TAB PO SCH (08:51)
[2021-07-19] MEDS: INSULIN ASPART 100 UNITS/ML 3 ML PEN SC SCH ×4 (08:56→20:49)
--- NOTE | 2021-07-19 12:08 | Pharmacy Report ---
Pharmacy Glycemic Short Note 2 - Date of Service July 19, 2021 - Glycemic Short BSG Results (Last 24 hours): 07/18/21 07/18/21 07/19/21 17:18 20:24 07:33 POC Glucose 101 H 107 H 82 07/19/21 11:59 POC Glucose 153 H OUTPATIENT ANTIDIABETIC REGIMEN: * None * HbA1c 6.8% on 07/02/21 ASSESSMENT: 07/19: * Pt well controlled over the past 48 hours with the exception of lunchtime yesterday. This elevation was likely due to only 2 hours between AM novolog administration and lunch BSG draw. * IV dex finished yesterday. Novolog was loosened today accordingly. Will monitor. 07/17: * Pt continues to be well controlled with current novolog parameters. Dex to stop after tomorrows dose. Will monitor need for loosening novolog. 07/14 * Controlled with current novolog parameters, dexamethasone decreased to 10 mg today, will monitor for need to loosen 07/12: * Patient well controlled overall over the past few days. Continue with current novolog scale. 07/10 * Patient's BSGs yesterday [phone] mg/dL * Dexamethasone increased to 20 mg daily, anticipate for 5 days then taper * Fasting today 97 mg/dL- continue to hold lantus * will continue current novolog parameters 07/08 * Patient's BSGs yesterday were [phone] mg/dL. Patient received 8 units of insulin (0 units of basal and 8 units of bolus). * Fasting today was 97 mg/dL. * Continue to hold Lantus. * BSGs trend up throughout the day so tighten CR as this is primarily affected by steroids. 07/07 * Stressors stable * Patient received 8 units of prandial/correctional insulin with adequate control * Fasting 91 mg/dL, will continue to hold basal for now * No change to novolog. 07/06 * Stressors stable * Patient received 11 units of insulin yesterday (10 basal, 1 bolus), with BSG's ranging 92-148 mg/dL * AM fasting BSG well below goal range despite minimal basal insulin yesterday - will hold * Post-prandial BSG's yesterday good although po intake poor - no change to Novolog 07/05 * Stressors stable * AM fasting BSG below goal range - will significantly reduce NPH * Post-prandial BSG's yesterday good - no change to Novolog 07/04 * 56 yo F with new diagnosis of diabetes admitted with COVID-19 and on steroids * Pharmacy consulted on day 3 of admission. AM random BSG's have ranged 140-176 mg/dL over the last 3 days * Will start NPH to mimic PK of dexamethasone, but will not be aggressive as AM fasting this AM is in goal range without basal insulin (although at the upper end of goal) * Will start Novolog ACHS between weight-based moderate to severe stress estimate. Will adjust based on trend in BSG's PLAN FOR INPATIENT GLYCEMIC CONTROL: * Basal insulin * hold * Bolus insulin * NovoLog per scale ACHS or Q6hrs while NPO * Goal Range: Low 110 mg/dL - High 140 mg/dL * Correction Factor: 30 mg/dL/unit * Nutritional / Prandial insulin per carb ratio of 1 unit per 9 grams CHO consumed PLAN FOR DISCHARGE: * see note from 07/06
[2021-07-19] MEDS ORDERED: FUROSEMIDE 40 MG/4 ML VIAL IV ONE (13:11)
--- NOTE | 2021-07-19 13:59 | Hospitalist Progress Note ---
Date of Service July 19, 2021 Assessment & Plan (1) Acute hypoxemic respiratory failure: Plan: Patient is a 56 yr female with H/o hypertension, celiac disease, NAFLD presented 07/02 to our ED with complaint of shortness of breathworsening secondary to recent diagnosis of Covid positive at primary care office. Acute hypoxemic respiratory failure COVID 19 Pneumonia --CTA:There is no evidence of pulmonary embolus in the main, lobar, or segmental pulmonary arteries. Multifocal airspace consolidation is consistent with the reported history of a viral pneumonia. Radiographic follow-up to resolution is recommended. Enlarged mediastinal and hilar nodes are likely reactive. 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 Received Remdesivir 1 dose on 07/02/21 Baricitinib doses have been completed on 07/17/2021 Completed 5-day course of dexamethasone 20 mg Plan to continue dexamethasone 10 mg daily for untill 07/18/2021 Lasix, Nebs PRN Continue Pulmonary Hygiene Encourage to prone as able Appreciate pulmonary input and recommendation Clinically a little better today and has been requiring 8 to 12 L of oxygen to maintain saturation Has had a setback early this morning and requiring about 15 L to maintain saturation We will give another dose of Lasix and continue with current treatment Pneumomediastinum Subcutaneous emphysema Small left apical pneumothorax -Avoid positive airway pressure if possible. -Chest x-ray today showed worsening pneumothorax with mild midline shift Appreciate pulmonary input Repeat chest x-ray showed decreased small left pneumothorax-unchanged small left apical pneumothorax as on 07/17/2021 Repeat chest x-ray did not show any pneumothorax on the left side We will get another x-ray to make sure there is no recurrence of the pneumothorax Thrombocythemia Likely secondary to Baricitinib Monitor Platelet count Platelet count trending down Hypertension GERD Mood disorder Continue home meds DVT Px: Lovenox SQ Code Status Full code Admission and Anticipated Discharge Date Admission Date: July 02, 2021 Subjective 07/17/2021 The patient was seen and examined in telemetry unit and in the Covid room She was doing much better as of yesterday but her condition has gotten worse since last night She has been requiring 6 L/min 100% FiO2 to maintain saturation this morning Sitting on a chair without any acute distress Has had blood-tinged bowel movement this morning without any obvious bleeding 07/18/2021 The patient was seen and examined in telemetry unit and in the Covid room She has been feeling little better today and has been smiling Denies any cough and/or shortness of breath at rest Has been requiring anywhere from 8 to 12 L oxygen to maintain saturation 07/19/2021 The patient was seen and examined in telemetry unit and in the Covid room She was doing much better until early this morning when she was requiring about 6 L of oxygen to maintain saturation With minimal movement saturation went down below 70s and she has been requiring 15 L right now to maintain saturation Frustrated with this situation but denies any other symptoms during my examination Review of Systems Review of Systems: All systems reviewed and are unremarkable except as noted below Respiratory: Moderate shortness of breath at rest Physical Exam Constitutional: well developed, well nourished, + ill appearing and average body habitus Eyes: PERRL, conjunctivae normal, anicteric sclerae ENMT: external ear and nose normal, oropharynx normal Neck: trachea midline, no thyromegaly Respiratory: + respiratory distress and + cough Auscultation: + diminished lung sounds and + crackles (At the bases) Cardiovascular: Rate/Rhythm: regular rate and regular rhythm; not tachycardic Heart Sounds: normal S1 and normal S2; no murmur Extremities: no edema Gastrointestinal (Abdomen): Inspection/Auscultation: normal bowel sounds; abdomen not distended Percussion/Palpation: abdomen soft; abdomen nontender Musculoskeletal: No acute arthritis in any joint Neurologic: Alert, awake and oriented x3. Generally weak but no focal sensory and motor deficit appreciated Lymphatic: no cervical or axillary lymphadenopathy Results & Data Results & Data ([facility]) Vital Signs (Past 12 Hours) Vital Signs Temp Pulse Pulse Resp BP Pulse Ox Pulse Ox 07/19/21 13:42 82 17 91 07/19/21 12:46 88 17 91 07/19/21 12:16 77 17 90 07/19/21 12:11 36.5 C 84 33 H 140/82 91 07/19/21 12:01 90 07/19/21 12:00 89 22 87 L 07/19/21 11:35 84 20 86 L 07/19/21 11:16 81 19 81 L 07/19/21 11:15 82 18 140/82 78 L 07/19/21 08:00 74 07/19/21 07:49 36.5 C 78 18 168/85 H 87 L 07/19/21 07:27 90 07/19/21 07:22 86 L 07/19/21 07:20 86 L 07/19/21 06:03 152/83 H 07/19/21 03:13 36.7 C 87 20 179/91 H 93 Laboratory Results Short CBC 07/19/21 Range/Units 05:36 WBC 19.05 H (4.8-10.8) K/uL Hgb 14.9 (12.0-16.0) g/dL Hct 44.9 (37-47) % Plt Count 803 H (130-400) K/uL BMP 07/19/21 05:36 Creatinine 0.89 Medications Administered Current Inpatient Medications Acetaminophen (Acetaminophen 325 Mg Tab) 650 mg PO Q4H PRN PRN Reason: Pain or Fever Stop: 08/01/21 21:59 Last Admin: 07/08/21 20:30 Dose: 650 mg Documented by: Amlodipine Besylate (Amlodipine Besylate 5 Mg Tab) 5 mg PO [facility] Stop: 08/18/21 03:49 Last Admin: 07/19/21 06:37 Dose: 5 mg Documented by: Cyanocobalamin (Cyanocobalamin (Vitamin B-12) 2,500 Mcg Tab.Subl) 2,500 mcg SL [facility] Stop: 08/02/21 08:59 Last Admin: 07/19/21 08:47 Dose: 2,500 mcg Documented by: Dextrose (Dextrose 50% 50 Ml Syringe) 25 - 50 ml IV UD PRN; Protocol PRN Reason: Hypoglycemia Protocol Stop: 08/03/21 09:55 Enoxaparin Sodium (Enoxaparin Inj 40 Mg/0.4 Ml Syr) 40 mg SQ [facility] Stop: 08/09/21 13:59 Last Admin: 07/19/21 08:48 Dose: 40 mg Documented by: Escitalopram Oxalate (Escitalopram Oxalate 10 Mg Tab) 5 mg PO DAILY [facility] Stop: 08/02/21 08:59 Last Admin: 07/19/21 08:50 Dose: 5 mg Documented by: Fluticasone Propionate (Fluticasone Propionate Na Spr 16 Gm Btl) 1 sprays NA [facility] Stop: 08/02/21 08:59 Last Admin: 07/19/21 08:50 Dose: 1 sprays Documented by: Glucagon (Glucagon For Inj 1 Mg Vial) 1 mg SQ UD PRN; Protocol PRN Reason: Hypoglycemia Protocol Stop: 08/03/21 09:55 Glucose (Glucose 10 Tabs/Tube) 4 - 8 tabs PO UD PRN; Protocol PRN Reason: Hypoglycemia Protocol Stop: 08/03/21 09:55 Glucose (Glucose 40% Gel 15 Gm Tube) 15 - 30 gm PO UD PRN; Protocol PRN Reason: Hypoglycemia Protocol Stop: 08/03/21 09:55 Promethazine HCl 12.5 mg/ (Sodium Chloride) 50.5 mls @ 202 mls/hr IV Q6H PRN PRN Reason: Nausea And Vomiting Stop: 08/01/21 21:59 Insulin Aspart (Insulin Aspart 100 Units/Ml 3 Ml Pen) 0 units SC [facility]; Protocol Stop: 08/03/21 11:29 Last Admin: 07/19/21 12:57 Dose: 3 units Documented by: Ipratropium [place] (Ipratropium [place] Neb Soln 0.02% 2.5 Ml Vial) 0.5 mg INH Q4H PRN PRN Reason: sob/wheezing Stop: 08/01/21 21:59 Levalbuterol HCl (Levalbuterol 1.25mg/0.5ml Neb) 1.25 mg INH Q4H PRN PRN Reason: sob/wheezing Stop: 08/01/21 21:59 Loratadine (Loratadine 10 Mg Tab) 10 mg PO DAILY [facility] Stop: 08/02/21 08:59 Last Admin: 07/19/21 08:50 Dose: 10 mg Documented by: Lorazepam (Lorazepam 0.5 Mg Tab) 0.5 mg PO HS PRN PRN Reason: Anxiety Stop: 08/13/21 18:18 Last Admin: 07/18/21 22:33 Dose: 0.5 mg Documented by: Miscellaneous (Carbohydrates For Hypoglycemia ) 15 - 30 gm PO UD PRN PRN Reason: Hypoglycemia Protocol Stop: 08/03/21 09:55 Miscellaneous Information (Pharmacy Glycemic Mgmt Consult) 1 ea N/A UD PRN; Protocol PRN Reason: Consult Stop: 08/03/21 09:55 Montelukast Sodium (Montelukast Sodium 10 Mg Tablet) 10 mg PO QAM [facility] Stop: 08/02/21 08:59 Last Admin: 07/19/21 08:50 Dose: 10 mg Documented by: Multivitamins (Multivitamin Tab) 1 tab PO DAILY [facility] Stop: 08/02/21 08:59 Last Admin: 07/19/21 08:50 Dose: 1 tab Documented by: Pantoprazole Sodium (Pantoprazole 40 Mg Tab) 40 mg PO DAILY [facility] Stop: 08/02/21 08:59 Last Admin: 07/19/21 08:51 Dose: 40 mg Documented by:
--- NOTE | 2021-07-19 14:35 | XRay Report ---
XR chest 1V portable HISTORY: 56 years-old Female Pneumothorax follow-up study in a patient with pneumothorax COMPARISON: Chest radiograph 07/18/2021 TECHNIQUE: Portable AP view of the chest FINDINGS: Cardiomediastinal and hilar silhouettes are unchanged. No pneumothorax or large pleural effusion. Mul tifocal peripheral predominant airspace opacities are redemonstrated an are generally stable.. Questi oned lucency of the right hemithorax and right paratracheal distribution. No acute fracture. Levoscol iosis of the thoracolumbar junction. IMPRESSION: 1. Multifocal peripheral predominant airspace opacities are generally stable from comparison. 2. Questioned tiny right apical pneumothorax with pneumomediastinum. Attention at follow-up recommend ed. ACT 112: Negative or not required by law. The above report was generated using voice recognition software. It may contain grammatical, syntax o r spelling errors. Electronically signed by: Joseph Nance M.D. 07/19/2021 2:33 PM
[2021-07-19] MEDS: LORazepam 0.5 MG TAB PO PRN (22:52)
[2021-07-20] MEDS: INSULIN ASPART 100 UNITS/ML 3 ML PEN SC SCH ×4 (08:05→20:48)
[2021-07-20] MEDS: PANTOprazole 40 MG TAB PO SCH (08:14)
[2021-07-20] MEDS: MULTIVITAMIN TAB PO SCH (08:14)
[2021-07-20] MEDS: MONTELUKAST SODIUM 10 MG TABLET PO SCH (08:14)
[2021-07-20] MEDS: ESCITALOPRAM OXALATE 10 MG TAB PO SCH (08:14)
[2021-07-20] MEDS: amLODIPine BESYLATE 5 MG TAB PO SCH (08:14)
[2021-07-20] MEDS: CYANOCOBALAMIN (VITAMIN B-12) 2,500 MCG TAB.SUBL SL SCH (08:14)
[2021-07-20] MEDS: LORATADINE 10 MG TAB PO SCH (08:14)
[2021-07-20] MEDS: ENOXAPARIN INJ 40 MG/0.4 ML SYR SQ SCH (08:15)
[2021-07-20] MEDS: FLUTICASONE PROPIONATE NA SPR 16 GM BTL SCH (08:15)
--- NOTE | 2021-07-20 14:17 | Hospitalist Progress Note ---
Date of Service July 20, 2021 Assessment & Plan (1) Acute hypoxemic respiratory failure: Plan: Patient is a 56 yr female with H/o hypertension, celiac disease, NAFLD presented 07/02 to our ED with complaint of shortness of breathworsening secondary to recent diagnosis of Covid positive at primary care office. Acute hypoxemic respiratory failure COVID 19 Pneumonia --CTA:There is no evidence of pulmonary embolus in the main, lobar, or segmental pulmonary arteries. Multifocal airspace consolidation is consistent with the reported history of a viral pneumonia. Radiographic follow-up to resolution is recommended. Enlarged mediastinal and hilar nodes are likely reactive. 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 Received Remdesivir 1 dose on 07/02/21 Baricitinib doses have been completed on 07/17/2021 Completed 5-day course of dexamethasone 20 mg Plan to continue dexamethasone 10 mg daily for untill 07/18/2021 Lasix, Nebs PRN Continue Pulmonary Hygiene Encourage to prone as able Appreciate pulmonary input and recommendation Clinically a little better today and has been requiring 8 to 12 L of oxygen to maintain saturation Has had a setback early this morning and requiring about 15 L to maintain saturation We will give another dose of Lasix and continue with current treatment Clinically better and will ask for PT and OT evaluation Pneumomediastinum Subcutaneous emphysema Small left apical pneumothorax -Avoid positive airway pressure if possible. -Chest x-ray today showed worsening pneumothorax with mild midline shift Appreciate pulmonary input Repeat chest x-ray showed decreased small left pneumothorax-unchanged small left apical pneumothorax as on 07/17/2021 Repeat chest x-ray did not show any pneumothorax on the left side We will get another x-ray to make sure there is no recurrence of the pneumothorax Repeat chest x-ray showed he had a questionable small pneumothorax in the right apex on 07/19/2021 Thrombocythemia Likely secondary to Baricitinib Monitor Platelet count Platelet count trending down -823 on 07/19/2021 Hypertension GERD Mood disorder Continue home meds DVT Px: Lovenox SQ Code Status Full code Admission and Anticipated Discharge Date Admission Date: July 02, 2021 Subjective 07/17/2021 The patient was seen and examined in telemetry unit and in the Covid room She was doing much better as of yesterday but her condition has gotten worse since last night She has been requiring 6 L/min 100% FiO2 to maintain saturation this morning Sitting on a chair without any acute distress Has had blood-tinged bowel movement this morning without any obvious bleeding 07/18/2021 The patient was seen and examined in telemetry unit and in the Covid room She has been feeling little better today and has been smiling Denies any cough and/or shortness of breath at rest Has been requiring anywhere from 8 to 12 L oxygen to maintain saturation 07/19/2021 The patient was seen and examined in telemetry unit and in the Covid room She was doing much better until early this morning when she was requiring about 6 L of oxygen to maintain saturation With minimal movement saturation went down below 70s and she has been requiring 15 L right now to maintain saturation Frustrated with this situation but denies any other symptoms during my examination 07/20/2021 The patient was seen and examined in telemetry unit and in the Covid room She has been feeling much better today and has been requiring 5 L to maintain saturation Denies any other significant symptoms at rest Review of Systems Review of Systems: All systems reviewed and are unremarkable except as noted below Physical Exam Physical Exam: Sitting on a chair without any apparent distress Constitutional: well developed, well nourished, + ill appearing and average body habitus Eyes: PERRL, conjunctivae normal, anicteric sclerae ENMT: external ear and nose normal, oropharynx normal Neck: trachea midline, no thyromegaly Respiratory: + respiratory distress and + cough Auscultation: + diminished lung sounds and + crackles (At the bases) Cardiovascular: Rate/Rhythm: regular rate and regular rhythm; not tachycardic Heart Sounds: normal S1 and normal S2; no murmur Extremities: no edema Gastrointestinal (Abdomen): Inspection/Auscultation: normal bowel sounds; abdomen not distended Percussion/Palpation: abdomen soft; abdomen nontender Musculoskeletal: Does not have any acute arthritis in any joint Neurologic: Alert, awake and oriented x3. She is generally weak and lethargic without any focal neurological deficit Lymphatic: no cervical or axillary lymphadenopathy Results & Data Results & Data ([facility]) Vital Signs (Past 12 Hours) Vital Signs Temp Pulse Pulse Resp BP Pulse Ox Pulse Ox 07/20/21 12:00 92 07/20/21 10:53 36.5 C 90 18 142/83 H 92 07/20/21 08:00 84 07/20/21 07:54 36.8 C 86 18 149/89 H 95 07/20/21 05:10 36.7 C 89 18 169/87 H 93 Medications Administered Current Inpatient Medications Acetaminophen (Acetaminophen 325 Mg Tab) 650 mg PO Q4H PRN PRN Reason: Pain or Fever Stop: 08/01/21 21:59 Last Admin: 07/08/21 20:30 Dose: 650 mg Documented by: Amlodipine Besylate (Amlodipine Besylate 5 Mg Tab) 5 mg PO QAM [facility] Stop: 08/18/21 03:49 Last Admin: 07/20/21 08:14 Dose: 5 mg Documented by: Cyanocobalamin (Cyanocobalamin (Vitamin B-12) 2,500 Mcg Tab.Subl) [facility] Stop: 08/02/21 08:59 Last Admin: 07/20/21 08:14 Dose: 2,500 mcg Documented by: Dextrose (Dextrose 50% 50 Ml Syringe) 25 - 50 ml IV UD PRN; Protocol PRN Reason: Hypoglycemia Protocol Stop: 08/03/21 09:55 Enoxaparin Sodium (Enoxaparin Inj 40 Mg/0.4 Ml Syr) [facility] Stop: 08/09/21 13:59 Last Admin: 07/20/21 08:15 Dose: 40 mg Documented by: Escitalopram Oxalate (Escitalopram Oxalate 10 Mg Tab) 5 mg PO DAILY [facility] Stop: 08/02/21 08:59 Last Admin: 07/20/21 08:14 Dose: 5 mg Documented by: Fluticasone Propionate (Fluticasone Propionate Na Spr 16 Gm Btl) 1 sprays NA QAM [facility] Stop: 08/02/21 08:59 Last Admin: 07/20/21 08:15 Dose: 1 sprays Documented by: Glucagon (Glucagon For Inj 1 Mg Vial) 1 mg SQ UD PRN; Protocol PRN Reason: Hypoglycemia Protocol Stop: 08/03/21 09:55 Glucose (Glucose 10 Tabs/Tube) 4 - 8 tabs PO UD PRN; Protocol PRN Reason: Hypoglycemia Protocol Stop: 08/03/21 09:55 Glucose (Glucose 40% Gel 15 Gm Tube) 15 - 30 gm PO UD PRN; Protocol PRN Reason: Hypoglycemia Protocol Stop: 08/03/21 09:55 Promethazine HCl 12.5 mg/ (Sodium Chloride) 50.5 mls @ 202 mls/hr IV Q6H PRN PRN Reason: Nausea And Vomiting Stop: 08/01/21 21:59 Insulin Aspart (Insulin Aspart 100 Units/Ml 3 Ml Pen) 0 units SC ACHS [facility]; Pro tocol Stop: 08/03/21 11:29 Last Admin: 07/20/21 12:15 Dose: 1 units Documented by: Ipratropium [place] (Ipratropium [place] Neb Soln 0.02% 2.5 Ml Vial) 0.5 mg INH Q4H PRN PRN Reason: sob/wheezing Stop: 08/01/21 21:59 Levalbuterol HCl (Levalbuterol 1.25mg/0.5ml Neb) 1.25 mg INH Q4H PRN PRN Reason: sob/wheezing Stop: 08/01/21 21:59 Loratadine (Loratadine 10 Mg Tab) 10 mg PO DAILY [facility] Stop: 08/02/21 08:59 Last Admin: 07/20/21 08:14 Dose: 10 mg Documented by: Lorazepam (Lorazepam 0.5 Mg Tab) 0.5 mg PO HS PRN PRN Reason: Anxiety Stop: 08/13/21 18:18 Last Admin: 07/19/21 22:52 Dose: 0.5 mg Documented by: Miscellaneous (Carbohydrates For Hypoglycemia ) 15 - 30 gm PO UD PRN PRN Reason: Hypoglycemia Protocol Stop: 08/03/21 09:55 Miscellaneous Information (Pharmacy Glycemic Mgmt Consult) 1 ea N/A UD PRN; Protocol PRN Reason: Consult Stop: 08/03/21 09:55 Montelukast Sodium (Montelukast Sodium 10 Mg Tablet) 10 mg PO QAM [facility] Stop: 08/02/21 08:59 Last Admin: 07/20/21 08:14 Dose: 10 mg Documented by: Multivitamins (Multivitamin Tab) 1 tab PO DAILY [facility] Stop: 08/02/21 08:59 Last Admin: 07/20/21 08:14 Dose: 1 tab Documented by: Pantoprazole Sodium (Pantoprazole 40 Mg Tab) 40 mg PO DAILY [facility] Stop: 08/02/21 08:59 Last Admin: 07/20/21 08:14 Dose: 40 mg Documented by:
[2021-07-20] MEDS: LORazepam 0.5 MG TAB PO PRN (22:57)
[2021-07-21] MEDS: FLUTICASONE PROPIONATE NA SPR 16 GM BTL SCH (08:01)
[2021-07-21] MEDS: ENOXAPARIN INJ 40 MG/0.4 ML SYR SQ SCH (08:01)
[2021-07-21] MEDS: amLODIPine BESYLATE 5 MG TAB PO SCH (08:02)
[2021-07-21] MEDS: CYANOCOBALAMIN (VITAMIN B-12) 2,500 MCG TAB.SUBL SL SCH (08:03)
[2021-07-21] MEDS: ESCITALOPRAM OXALATE 10 MG TAB PO SCH (08:03)
[2021-07-21] MEDS: PANTOprazole 40 MG TAB PO SCH (08:04)
[2021-07-21] MEDS: LORATADINE 10 MG TAB PO SCH (08:04)
[2021-07-21] MEDS: MONTELUKAST SODIUM 10 MG TABLET PO SCH (08:04)
[2021-07-21] MEDS: MULTIVITAMIN TAB PO SCH (08:04)
[2021-07-21] MEDS: INSULIN ASPART 100 UNITS/ML 3 ML PEN SC SCH ×4 (09:08→23:06)
--- NOTE | 2021-07-21 14:56 | Hospitalist Progress Note ---
Date of Service July 21, 2021 Assessment & Plan (1) Acute hypoxemic respiratory failure: Plan: Patient is a 56 yr female with H/o hypertension, celiac disease, NAFLD presented 07/02 to our ED with complaint of shortness of breathworsening secondary to recent diagnosis of Covid positive at primary care office. Acute hypoxemic respiratory failure COVID 19 Pneumonia --CTA:There is no evidence of pulmonary embolus in the main, lobar, or segmental pulmonary arteries. Multifocal airspace consolidation is consistent with the reported history of a viral pneumonia. Radiographic follow-up to resolution is recommended. Enlarged mediastinal and hilar nodes are likely reactive. 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 Received Remdesivir 1 dose on 07/02/21 Baricitinib doses have been completed on 07/17/2021 Completed 5-day course of dexamethasone 20 mg Plan to continue dexamethasone 10 mg daily for untill 07/18/2021 Lasix, Nebs PRN Continue Pulmonary Hygiene Encourage to prone as able Appreciate pulmonary input and recommendation Clinically a little better today and has been requiring 8 to 12 L of oxygen to maintain saturation Has had a setback early this morning and requiring about 15 L to maintain saturation We will give another dose of Lasix and continue with current treatment Clinically better and will ask for PT and OT evaluation-PT recommended that she can go home Has had to do steps O2 saturation and required 6 L of oxygen to maintain saturation barely She will be transferred to medical floor and was advised to take a few laps in the hallway Likely discharge tomorrow Pneumomediastinum Subcutaneous emphysema Small left apical pneumothorax -Avoid positive airway pressure if possible. -Chest x-ray today showed worsening pneumothorax with mild midline shift Appreciate pulmonary input Repeat chest x-ray showed decreased small left pneumothorax-unchanged small left apical pneumothorax as on 07/17/2021 Repeat chest x-ray did not show any pneumothorax on the left side We will get another x-ray to make sure there is no recurrence of the pneumothorax Repeat chest x-ray showed he had a questionable small pneumothorax in the right apex on 07/19/2021 Doubt any worsening of pneumomediastinum or pneumothorax Thrombocythemia Likely secondary to Baricitinib Monitor Platelet count Platelet count trending down -823 on 07/19/2021 Hypertension GERD Mood disorder Continue home meds DVT Px: Lovenox SQ Code Status Full code Admission and Anticipated Discharge Date Admission Date: July 02, 2021 Subjective 07/17/2021 The patient was seen and examined in telemetry unit and in the Covid room She was doing much better as of yesterday but her condition has gotten worse sin ce last night She has been requiring 6 L/min 100% FiO2 to maintain saturation this morning Sitting on a chair without any acute distress Has had blood-tinged bowel movement this morning without any obvious bleeding 07/18/2021 The patient was seen and examined in telemetry unit and in the Covid room She has been feeling little better today and has been smiling Denies any cough and/or shortness of breath at rest Has been requiring anywhere from 8 to 12 L oxygen to maintain saturation 07/19/2021 The patient was seen and examined in telemetry unit and in the Covid room She was doing much better until early this morning when she was requiring about 6 L of oxygen to maintain saturation With minimal movement saturation went down below 70s and she has been requiring 15 L right now to maintain saturation Frustrated with this situation but denies any other symptoms during my examination 07/20/2021 The patient was seen and examined in telemetry unit and in the Covid room She has been feeling much better today and has been requiring 5 L to maintain saturation Denies any other significant symptoms at rest 07/21/2021 The patient was seen and examined in telemetry unit and in the Covid room She has been feeling much better and requiring about 2 to 4 L of oxygen at rest to maintain saturation Still has weakness and shortness of breath with minimal exertion Review of Systems Review of Systems: All systems reviewed and are unremarkable except as noted below Respiratory: Moderate shortness of breath at rest Physical Exam Physical Exam: Sitting on a chair without any apparent distress Constitutional: well developed, well nourished, + ill appearing and average body habitus Eyes: PERRL, conjunctivae normal, anicteric sclerae ENMT: external ear and nose normal, oropharynx normal Neck: trachea midline, no thyromegaly Respiratory: + respiratory distress and + cough Auscultation: + diminished lung sounds and + crackles (At the bases) Cardiovascular: Rate/Rhythm: regular rate and regular rhythm; not tachycardic Heart Sounds: normal S1 and normal S2; no murmur Extremities: no edema Gastrointestinal (Abdomen): Inspection/Auscultation: normal bowel sounds; abdomen not distended Percussion/Palpation: abdomen soft; abdomen nontender Musculoskeletal: No acute arthritis in any joint Neurologic: Alert, awake and oriented x3. Generally weak but no focal sensory and or motor deficit appreciated Lymphatic: no cervical or axillary lymphadenopathy Results & Data Results & Data ([facility]) Vital Signs (Past 12 Hours) Vital Signs Temp Pulse Pulse Pulse Pulse Pulse Pulse 07/21/21 14:43 07/21/21 12:45 91 H 101 H 100 H 92 H 07/21/21 10:53 36.7 C 92 H 07/21/21 08:00 80 07/21/21 07:24 36.9 C 88 Pulse Resp Resp Resp Resp Resp Resp 07/21/21 14:43 07/21/21 12:45 88 18 22 22 20 18 07/21/21 10:53 18 07/21/21 08:00 07/21/21 07:24 19 BP Pulse Ox Pulse Ox Pulse Ox Pulse Ox Pulse Ox Pulse Ox 07/21/21 14:43 92 07/21/21 12:45 93 83 L 84 L 90 07/21/21 10:53 135/72 90 07/21/21 08:00 07/21/21 07:24 134/85 95 Pulse Ox Pulse Ox Pulse Ox 07/21/21 14:43 92 88 L 07/21/21 12:45 86 L 07/21/21 10:53 07/21/21 08:00 07/21/21 07:24 Medications Administered Current Inpatient Medications Acetaminophen (Acetaminophen 325 Mg Tab) 650 mg PO Q4H PRN PRN Reason: Pain or Fever Stop: 08/01/21 21:59 Last Admin: 07/08/21 20:30 Dose: 650 mg Documented by: Amlodipine Besylate (Amlodipine Besylate 5 Mg Tab) [facility] Stop: 08/18/21 03:49 Last Admin: 07/21/21 08:02 Dose: 5 mg Documented by: Cyanocobalamin (Cyanocobalamin (Vitamin B-12) 2,500 Mcg Tab.Subl) 2,500 mcg SL QAM [facility] Stop: 08/02/21 08:59 Last Admin: 07/21/21 08:03 Dose: 2,500 mcg Documented by: Dextrose (Dextrose 50% 50 Ml Syringe) 25 - 50 ml IV UD PRN; Protocol PRN Reason: Hypoglycemia Protocol Stop: 08/03/21 09:55 Enoxaparin Sodium (Enoxaparin Inj 40 Mg/0.4 Ml Syr) 40 mg SQ QAM [facility] Stop: 08/09/21 13:59 Last Admin: 07/21/21 08:01 Dose: 40 mg Documented by: Escitalopram Oxalate (Escitalopram Oxalate 10 Mg Tab) 5 mg PO DAILY [facility] Stop: 08/02/21 08:59 Last Admin: 07/21/21 08:03 Dose: 5 mg Documented by: Fluticasone Propionate (Fluticasone Propionate Na Spr 16 Gm Btl) 1 sprays NA QAM [facility] Stop: 08/02/21 08:59 Last Admin: 07/21/21 08:01 Dose: 1 sprays Documented by: Glucagon (Glucagon For Inj 1 Mg Vial) 1 mg SQ UD PRN; Protocol PRN Reason: Hypoglycemia Protocol Stop: 08/03/21 09:55 Glucose (Glucose 10 Tabs/Tube) 4 - 8 tabs PO UD PRN; Protocol PRN Reason: Hypoglycemia Protocol Stop: 08/03/21 09:55 Glucose (Glucose 40% Gel 15 Gm Tube) 15 - 30 gm PO UD PRN; Protocol PRN Reason: Hypoglycemia Protocol Stop: 08/03/21 09:55 Promethazine HCl 12.5 mg/ (Sodium Chloride) 50.5 mls @ 202 mls/hr IV Q6H PRN PRN Reason: Nausea And Vomiting Stop: 08/01/21 21:59 Insulin Aspart (Insulin Aspart 100 Units/Ml 3 Ml Pen) 0 units SC [facility]; Protocol Stop: 08/03/21 11:29 Last Admin: 07/21/21 12:21 Dose: Not Given Documented by: Ipratropium [place] (Ipratropium [place] Neb Soln 0.02% 2.5 Ml Vial) 0.5 mg INH Q4H PRN PRN Reason: sob/wheezing Stop: 08/01/21 21:59 Levalbuterol HCl (Levalbuterol 1.25mg/0.5ml Neb) 1.25 mg INH Q4H PRN PRN Reason: sob/wheezing Stop: 08/01/21 21:59 Loratadine (Loratadine 10 Mg Tab) 10 mg PO DAILY [facility] Stop: 08/02/21 08:59 Last Admin: 07/21/21 08:04 Dose: 10 mg Documented by: Lorazepam (Lorazepam 0.5 Mg Tab) 0.5 mg PO HS PRN PRN Reason: Anxiety Stop: 08/13/21 18:18 Last Admin: 07/20/21 22:57 Dose: 0.5 mg Documented by: Miscellaneous (Carbohydrates For Hypoglycemia ) 15 - 30 gm PO UD PRN PRN Reason: Hypoglycemia Protocol Stop: 08/03/21 09:55 Miscellaneous Information (Pharmacy Glycemic Mgmt Consult) 1 ea N/A UD PRN; Protocol PRN Reason: Consult Stop: 08/03/21 09:55 Montelukast Sodium (Montelukast Sodium 10 Mg Tablet) 10 mg PO QAM [facility] Stop: 08/02/21 08:59 Last Admin: 07/21/21 08:04 Dose: 10 mg Documented by: Multivitamins (Multivitamin Tab) 1 tab PO DAILY [facility] Stop: 08/02/21 08:59 Last Admin: 07/21/21 08:04 Dose: 1 tab Documented by: Pantoprazole Sodium (Pantoprazole 40 Mg Tab) 40 mg PO DAILY [facility] Stop: 08/02/21 08:59 Last Admin: 07/21/21 08:04 Dose: 40 mg Documented by:
[2021-07-22 09:12] LABS: Basophils # (auto) 0.02 K/uL (0-0.2); Basophils % (auto) 0.2 %; Eosinophils # (auto) 0.21 K/uL (0-0.5); Eosinophils % (auto) 1.7 %; Hematocrit (blood only) 39.7 % (37-47); Immature Granulocytes # (auto) 0.14 K/uL (0.00-0.02); Immature Granulocytes % (auto) 1.2 %; Lymphocytes % (auto) 7.4 %; Mean Corpuscular Hemoglobin 30.6 pg (25-34); Mean Corpuscular Hgb Conc 32.7 g/dL (32-36); Mean Corpuscular Volume 93.4 fL (80-100); Mean Platelet Volume 9.7 fL (7.4-10.4); Monocytes # (auto) 1.45 K/uL (0.11-0.59); Monocytes % (auto) 11.9 %; Neutrophils # (auto) 9.43 K/uL (1.4-6.5); Neutrophils % (auto) 77.6 %; Platelet Count 430 K/uL (130-400); RDW Coefficient of Variation 12.9 % (11.5-14.5); RDW Standard Deviation 44.2 fL (36.4-46.3); Red Blood Count 4.25 M/uL (4.2-5.4); White Blood Count 12.15 K/uL (4.8-10.8)
[2021-07-22] MEDS: FLUTICASONE PROPIONATE NA SPR 16 GM BTL SCH (09:31)
[2021-07-22] MEDS: MULTIVITAMIN TAB PO SCH (09:32)
[2021-07-22] MEDS: LORATADINE 10 MG TAB PO SCH (09:32)
[2021-07-22] MEDS: amLODIPine BESYLATE 5 MG TAB PO SCH (09:32)
[2021-07-22] MEDS: MONTELUKAST SODIUM 10 MG TABLET PO SCH (09:33)
[2021-07-22] MEDS: ESCITALOPRAM OXALATE 10 MG TAB PO SCH (09:33)
[2021-07-22] MEDS: PANTOprazole 40 MG TAB PO SCH (09:33)
[2021-07-22] MEDS: CYANOCOBALAMIN (VITAMIN B-12) 2,500 MCG TAB.SUBL SL SCH (09:34)
[2021-07-22] MEDS: ENOXAPARIN INJ 40 MG/0.4 ML SYR SQ SCH (09:36)
[2021-07-22 09:40] LABS: BUN Creatinine Ratio 31.4 (10-20); Calcium 8.8 mg/dl (8.5-10.1); Creatinine Clr Calc Pharmacy 82.9 ml/min; Est GFR (African American) 110.7 ml/min; Est GFR (Non-African American) 95.5 ml/min; Magnesium 2.4 mg/dl (1.8-2.4); Phosphorus 2.2 mg/dl (2.5-4.9); Potassium 3.6 mmol/L (3.5-5.1)
[2021-07-22] MEDS: INSULIN ASPART 100 UNITS/ML 3 ML PEN SC SCH (10:14)
--- NOTE | 2021-07-22 15:01 | Hospitalist Progress Note ---
Date of Service July 22, 2021 Assessment & Plan (1) Acute hypoxemic respiratory failure: Plan: Patient is a 56 yr female with H/o hypertension, celiac disease, NAFLD presented 07/02 to our ED with complaint of shortness of breathworsening secondary to recent diagnosis of Covid positive at primary care office. Acute hypoxemic respiratory failure COVID 19 Pneumonia --CTA:There is no evidence of pulmonary embolus in the main, lobar, or segmental pulmonary arteries. Multifocal airspace consolidation is consistent with the reported history of a viral pneumonia. Radiographic follow-up to resolution is recommended. Enlarged mediastinal and hilar nodes are likely reactive. -Symptoms for 10 days [employer]. 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 Received Remdesivir 1 dose on 07/02/21 Baricitinib doses have been completed on 07/17/2021 Completed 5-day course of dexamethasone 20 mg Plan to continue dexamethasone 10 mg daily for untill 07/18/2021 Lasix, Nebs PRN Continue Pulmonary Hygiene Encourage to prone as able Appreciate pulmonary input and recommendation Clinically a little better today and has been requiring 8 to 12 L of oxygen to maintain saturation Has had a setback early this morning and requiring about 15 L to maintain saturation We will give another dose of Lasix and continue with current treatment Clinically better and will ask for PT and OT evaluation-PT recommended that she can go home Has had to do steps O2 saturation and required 6 L of oxygen to maintain saturation barely She will be transferred to medical floor and was advised to take a few laps in the hallway Much better today at rest but with ambulation the oxygen requirements went up to 8 L Not yet ready to be discharged Pneumomediastinum Subcutaneous emphysema Small left apical pneumothorax -Avoid positive airway pressure if possible. -Chest x-ray today showed worsening pneumothorax with mild midline shift Appreciate pulmonary input Repeat chest x-ray showed decreased small left pneumothorax-unchanged small left apical pneumothorax as on 07/17/2021 Repeat chest x-ray did not show any pneumothorax on the left side We will get another x-ray to make sure there is no recurrence of the pneumothorax Repeat chest x-ray showed he had a questionable small pneumothorax in the right apex on 07/19/2021 Oxygen requirements went up to 8 L with ambulation-we will get chest x-ray to rule out any progression of pneumothorax Thrombocythemia Likely secondary to Baricitinib Monitor Platelet count Platelet count trending down -823 on 07/19/2021 Hypertension GERD Mood disorder Continue home meds DVT Px: Lovenox SQ Code Status Full code Admission and Anticipated Discharge Date Admission Date: July 02, 2021 Subjective 07/17/2021 The patient was seen and examined in telemetry unit and in the Covid room She was doing much better as of yesterday but her condition has gotten worse since last night She has been requiring 6 L/min 100% FiO2 to maintain saturation this morning Sitting on a chair without any acute distress Has had blood-tinged bowel movement this morning without any obvious bleeding 07/18/2021 The patient was seen and examined in telemetry unit and in the Covid room She has been feeling little better today and has been smiling Denies any cough and/or shortness of breath at rest Has been requiring anywhere from 8 to 12 L oxygen to maintain saturation 07/19/2021 The patient was seen and examined in telemetry unit and in the Covid room She was doing much better until early this morning when she was requiring about 6 L of oxygen to maintain saturation With minimal movement saturation went down below 70s and she has been requiring 15 L right now to maintain saturation Frustrated with this situation but denies any other symptoms during my examination 07/20/2021 The patient was seen and examined in telemetry unit and in the Covid room She has been feeling much better today and has been requiring 5 L to maintain saturation Denies any other significant symptoms at rest 07/21/2021 The patient was seen and examined in telemetry unit and in the Covid room She has been feeling much better and requiring about 2 to 4 L of oxygen at rest to maintain saturation Still has weakness and shortness of breath with minimal exertion 07/22/2021 The patient was seen and examined medical floor She is stable at rest and requiring only 2 L of oxygen to maintain saturation With ambulation the requirements went up to 8 L today and she got very short of breath Not yet ready to be discharged but she is very anxious to go home Review of Systems Review of Systems: All systems reviewed and are unremarkable except as noted below Respiratory: Moderate shortness of breath at rest Physical Exam Physical Exam: Sitting on a chair without any apparent distress Constitutional: well developed, well nourished, + ill appearing and average body habitus Eyes: PERRL, conjunctivae normal, anicteric sclerae ENMT: external ear and nose normal, oropharynx normal Neck: trachea midline, no thyromegaly Respiratory: + respiratory distress and + cough Auscultation: + diminished lung sounds and + crackles (At the bases) Cardiovascular: Rate/Rhythm: regular rate and regular rhythm; not tachycardic Heart Sounds: normal S1 and normal S2; no murmur Extremities: no edema Gastrointestinal (Abdomen): Inspection/Auscultation: normal bowel sounds; a bdomen not distended Percussion/Palpation: abdomen soft; abdomen nontender Musculoskeletal: No acute arthritis in any joint Neurologic: Alert awake and oriented x3 Lymphatic: no cervical or axillary lymphadenopathy Results & Data Results & Data ([facility]) Vital Signs (Past 12 Hours) Vital Signs Temp Pulse Resp BP Pulse Ox 07/22/21 14:52 36.8 C 81 16 126/80 91 07/22/21 14:13 92 07/22/21 14:03 94 07/22/21 12:15 93 07/22/21 11:58 99 07/22/21 11:23 97 07/22/21 11:02 20 85 L 07/22/21 11:01 20 81 L 07/22/21 11:00 20 78 L 07/22/21 07:26 36.6 C 81 16 116/72 91 Laboratory Results Short CBC 07/22/21 Range/Units 08:45 WBC 12.15 H (4.8-10.8) K/uL Hgb 13.0 (12.0-16.0) g/dL Hct 39.7 (37-47) % Plt Count 430 H (130-400) K/uL BMP 07/22/21 08:45 Sodium 138 Potassium 3.6 Chloride 104 Carbon Dioxide 32 BUN 22 H Creatinine 0.70 Glucose 117 H Calcium 8.8 Medications Administered Current Inpatient Medications Acetaminophen (Acetaminophen 325 Mg Tab) 650 mg PO Q4H PRN PRN Reason: Pain or Fever Stop: 08/01/21 21:59 Last Admin: 07/08/21 20:30 Dose: 650 mg Documented by: Amlodipine Besylate (Amlodipine Besylate 5 Mg Tab) 5 mg PO QAM [facility] Stop: 08/18/21 03:49 Last Admin: 07/22/21 09:32 Dose: 5 mg Documented by: Cyanocobalamin (Cyanocobalamin (Vitamin B-12) 2,500 Mcg Tab.Subl) 2,500 mcg SL QAM [facility] Stop: 08/02/21 08:59 Last Admin: 07/22/21 09:34 Dose: 2,500 mcg Documented by: Dextrose (Dextrose 50% 50 Ml Syringe) 25 - 50 ml IV UD PRN; Protocol PRN Reason: Hypoglycemia Protocol Stop: 08/03/21 09:55 Enoxaparin Sodium (Enoxaparin Inj 40 Mg/0.4 Ml Syr) 40 mg SQ QAM [facility] Stop: 08/09/21 13:59 Last Admin: 07/22/21 09:36 Dose: 40 mg Documented by: Escitalopram Oxalate (Escitalopram Oxalate 10 Mg Tab) 5 mg PO DAILY [facility] Stop: 08/02/21 08:59 Last Admin: 07/22/21 09:33 Dose: 5 mg Documented by: Fluticasone Propionate (Fluticasone Propionate Na Spr 16 Gm Btl) 1 sprays NA QAM [facility] Stop: 08/02/21 08:59 Last Admin: 07/22/21 09:31 Dose: 1 sprays Documented by: Glucagon (Glucagon For Inj 1 Mg Vial) 1 mg SQ UD PRN; Protocol PRN Reason: Hypoglycemia Protocol Stop: 08/03/21 09:55 Glucose (Glucose 10 Tabs/Tube) 4 - 8 tabs PO UD PRN; Protocol PRN Reason: Hypoglycemia Protocol Stop: 08/03/21 09:55 Glucose (Glucose 40% Gel 15 Gm Tube) 15 - 30 gm PO UD PRN; Protocol PRN Reason: Hypoglycemia Protocol Stop: 08/03/21 09:55 Promethazine HCl 12.5 mg/ (Sodium Chloride) 50.5 mls @ 202 mls/hr IV Q6H PRN PRN Reason: Nausea And Vomiting Stop: 08/01/21 21:59 Ipratropium [place] (Ipratropium [place] Neb Soln 0.02% 2.5 Ml Vial) 0.5 mg INH Q4H PRN PRN Reason: sob/wheezing Stop: 08/01/21 21:59 Levalbuterol HCl (Levalbuterol 1.25mg/0.5ml Neb) 1.25 mg INH Q4H PRN PRN Reason: sob/wheezing Stop: 08/01/21 21:59 Loratadine (Loratadine 10 Mg Tab) 10 mg PO DAILY [facility] Stop: 08/02/21 08:59 Last Admin: 07/22/21 09:32 Dose: 10 mg Documented by: Lorazepam (Lorazepam 0.5 Mg Tab) 0.5 mg PO HS PRN PRN Reason: Anxiety Stop: 08/13/21 18:18 Last Admin: 07/20/21 22:57 Dose: 0.5 mg Documented by: Miscellaneous (Carbohydrates For Hypoglycemia ) 15 - 30 gm PO UD PRN PRN Reason: Hypoglycemia Protocol Stop: 08/03/21 09:55 Montelukast Sodium (Montelukast Sodium 10 Mg Tablet) 10 mg PO QAM [facility] Stop: 08/02/21 08:59 Last Admin: 07/22/21 09:33 Dose: 10 mg Documented by: Multivitamins (Multivitamin Tab) 1 tab PO DAILY [facility] Stop: 08/02/21 08:59 Last Admin: 07/22/21 09:32 Dose: 1 tab Documented by: Pantoprazole Sodium (Pantoprazole 40 Mg Tab) 40 mg PO DAILY [facility] Stop: 08/02/21 08:59 Last Admin: 07/22/21 09:33 Dose: 40 mg Documented by:
--- NOTE | 2021-07-22 15:52 | XRay Report ---
XR chest 2V PA/lateral HISTORY: Follow-up pneumothorax COMPARISON: Chest 07/19/2021. FINDINGS: Slight progression of the multifocal peripheral airspace opacities. Mild elevation of the r ight hemidiaphragm, unchanged. Mild S-shaped scoliosis of the thoracolumbar spine. No pneumothorax id entified. No definite pneumomediastinum. No pleural effusions. IMPRESSION: 1. Slight progression of the peripheral bilateral airspace opacities. 2. No pneumothorax. ACT 112: Negative or not required by law. Electronically signed by: Kendell Tavares M.D. 07/22/2021 3:51 PM
[2021-07-23] MEDS ORDERED: POTASSIUM PHOS 3 MMOL/1 ML INFUSION IV STA (07:46)
[2021-07-23] MEDS ORDERED: POTASSIUM PHOSPHATE 24 MMOL in SODIUM CHLORIDE 0.9% 500 ML IV ONE (08:00)
[2021-07-23] MEDS: MULTIVITAMIN TAB PO SCH (09:24)
[2021-07-23] MEDS: ESCITALOPRAM OXALATE 10 MG TAB PO SCH (09:24)
[2021-07-23] MEDS: FLUTICASONE PROPIONATE NA SPR 16 GM BTL SCH (09:24)
[2021-07-23] MEDS: amLODIPine BESYLATE 5 MG TAB PO SCH (09:25)
[2021-07-23] MEDS: PANTOprazole 40 MG TAB PO SCH (09:25)
[2021-07-23] MEDS: LORATADINE 10 MG TAB PO SCH (09:25)
[2021-07-23] MEDS: MONTELUKAST SODIUM 10 MG TABLET PO SCH (09:25)
[2021-07-23] MEDS: CYANOCOBALAMIN (VITAMIN B-12) 2,500 MCG TAB.SUBL SL SCH (09:27)
[2021-07-23] MEDS: ENOXAPARIN INJ 40 MG/0.4 ML SYR SQ SCH (09:32)
--- NOTE | 2021-07-23 13:53 | Hospitalist Progress Note ---
Date of Service July 23, 2021 Assessment & Plan (1) Acute hypoxemic respiratory failure: Plan: Patient is a 56 yr female with H/o hypertension, celiac disease, NAFLD presented 07/02 to our ED with complaint of shortness of breathworsening secondary to recent diagnosis of Covid positive at primary care office. Acute hypoxemic respiratory failure COVID 19 Pneumonia --CTA:There is no evidence of pulmonary embolus in the main, lobar, or segmental pulmonary arteries. Multifocal airspace consolidation is consistent with the reported history of a viral pneumonia. Radiographic follow-up to resolution is recommended. Enlarged mediastinal and hilar nodes are likely reactive. 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 Received Remdesivir 1 dose on 07/02/21 Baricitinib doses have been completed on 07/17/2021 Completed 5-day course of dexamethasone 20 mg Plan to continue dexamethasone 10 mg daily for untill 07/18/2021 Lasix, Nebs PRN Continue Pulmonary Hygiene Encourage to prone as able Appreciate pulmonary input and recommendation Clinically a little better today and has been requiring 8 to 12 L of oxygen to maintain saturation Has had a setback early this morning and requiring about 15 L to maintain saturation We will give another dose of Lasix and continue with current treatment Clinically better and will ask for PT and OT evaluation-PT recommended that she can go home Has had to do steps O2 saturation and required 6 L of oxygen to maintain saturation barely She will be transferred to medical floor and was advised to take a few laps in the hallway Much better today at rest but with ambulation the oxygen requirements went up to 8 L Getting very shortness of breath with minimal exertion Acute rest in the hospital for a few more days Pneumomediastinum Subcutaneous emphysema Small left apical pneumothorax -Avoid positive airway pressure if possible. -Chest x-ray today showed worsening pneumothorax with mild midline shift Appreciate pulmonary input Repeat chest x-ray showed decreased small left pneumothorax-unchanged small left apical pneumothorax as on 07/17/2021 Repeat chest x-ray did not show any pneumothorax on the left side We will get another x-ray to make sure there is no recurrence of the pneumothorax Repeat chest x-ray showed he had a questionable small pneumothorax in the right apex on 07/19/2021 Oxygen requirements went up to 8 L with ambulation-we will get chest x-ray to rule out any progression of pneumothorax No more pneumomediastinum, chest x-ray shows some progression of the bilateral pneumonia Thrombocythemia Likely secondary to Baricitinib Monitor Platelet count Platelet count trending down -823 on 07/19/2021 We will check tomorrow Hypertension GERD Mood disorder Continue home meds DVT Px: Lovenox SQ Code Status Full code Admission and Anticipated Discharge Date Admission Date: July 02, 2021 Subjective 07/17/2021 The patient was seen and examined in telemetry unit and in the Covid room She was doing much better as of yesterday but her condition has gotten worse since last night She has been requiring 6 L/min 100% FiO2 to maintain saturation this morning Sitting on a chair without any acute distress Has had blood-tinged bowel movement this morning without any obvious bleeding 07/18/2021 The patient was seen and examined in telemetry unit and in the Covid room She has been feeling little better today and has been smiling Denies any cough and/or shortness of breath at rest Has been requiring anywhere from 8 to 12 L oxygen to maintain saturation 07/19/2021 The patient was seen and examined in telemetry unit and in the Covid room She was doing much better until early this morning when she was requiring about 6 L of oxygen to maintain saturation With minimal movement saturation went down below 70s and she has been requiring 15 L right now to maintain saturation Frustrated with this situation but denies any other symptoms during my examination 07/20/2021 The patient was seen and examined in telemetry unit and in the Covid room She has been feeling much better today and has been requiring 5 L to maintain saturation Denies any other significant symptoms at rest 07/21/2021 The patient was seen and examined in telemetry unit and in the Covid room She has been feeling much better and requiring about 2 to 4 L of oxygen at rest to maintain saturation Still has weakness and shortness of breath with minimal exertion 07/22/2021 The patient was seen and examined medical floor She is stable at rest and requiring only 2 L of oxygen to maintain saturation With ambulation the requirements went up to 8 L today and she got very short of breath Not yet ready to be discharged but she is very anxious to go home 07/23/2021 The patient was seen and examined in medical floor She remains very short of breath with minimal exertion and coughing Saturating normally at rest on 2 L of nasal cannula oxygen We will try to ambulate tomorrow and see how she goes Review of Systems Review of Systems: All systems reviewed and are unremarkable except as noted below Respiratory: Moderate shortness of breath at rest Physical Exam Physical Exam: Sitting on a chair without any apparent distress Constitutional: well developed, well nourished, + ill appearing and average body habitus Eyes: PERRL, conjunctivae normal, anicteric sclerae ENMT: external ear and nose normal, oropharynx normal Neck: trachea midline, no thyromegaly Respiratory: + respiratory distress and + cough Auscultation: + diminished lung sounds and + crackles (At the bases) Cardiovascular: Rate/Rhythm: regular rate and regular rhythm; not tachycardic Heart Sounds: normal S1 and normal S2; no murmur Extremities: no edema Gastrointestinal (Abdomen): Inspection/Auscultation: normal bowel sounds; abdomen not distended Percussion/Palpation: abdomen soft; abdomen nontender Musculoskeletal: No acute arthritis in any joint Neurologic: Alert and awake. Oriented x3 Very weak generally Lymphatic: no cervical or axillary lymphadenopathy Results & Data Results & Data ([facility]) Vital Signs (Past 12 Hours) Vital Signs Temp Pulse Resp BP Pulse Ox 07/23/21 09:34 92 07/23/21 07:24 87 L 07/23/21 07:07 36.8 C 88 18 148/77 H 86 L Medications Administered Current Inpatient Medications Acetaminophen (Acetaminophen 325 Mg Tab) 650 mg PO Q4H PRN PRN Reason: Pain or Fever Stop: 08/01/21 21:59 Last Admin: 07/08/21 20:30 Dose: 650 mg Documented by: Amlodipine Besylate (Amlodipine Besylate 5 Mg Tab) [facility] [place] Stop: 08/18/21 03:49 Last Admin: 07/23/21 09:25 Dose: 5 mg Documented by: Cyanocobalamin (Cyanocobalamin (Vitamin B-12) 2,500 Mcg Tab.Subl) 2,500 mcg SL [facility] Stop: 08/02/21 08:59 Last Admin: 07/23/21 09:27 Dose: 2,500 mcg Documented by: Dextrose (Dextrose 50% 50 Ml Syringe) 25 - 50 ml IV UD PRN; Protocol PRN Reason: Hypoglycemia Protocol Stop: 08/03/21 09:55 Enoxaparin Sodium (Enoxaparin Inj 40 Mg/0.4 Ml Syr) 40 mg SQ [facility]AM [facility] Stop: 08/09/21 13:59 Last Admin: 07/23/21 09:32 Dose: 40 mg Documented by: Escitalopram Oxalate (Escitalopram Oxalate 10 Mg Tab) 5 mg PO DAILY [facility] Stop: 08/02/21 08:59 Last Admin: 07/23/21 09:24 Dose: 5 mg Documented by: Fluticasone Propionate (Fluticasone Propionate Na Spr 16 Gm Btl) 1 sprays NA QAM [facility] Stop: 08/02/21 08:59 Last Admin: 07/23/21 09:24 Dose: 1 sprays Documented by: Glucagon (Glucagon For Inj 1 Mg Vial) 1 mg SQ UD PRN; Protocol PRN Reason: Hypoglycemia Protocol Stop: 08/03/21 09:55 Glucose (Glucose 10 Tabs/Tube) 4 - 8 tabs PO UD PRN; Protocol PRN Reason: Hypoglycemia Protocol Stop: 08/03/21 09:55 Glucose (Glucose 40% Gel 15 Gm Tube) 15 - 30 gm PO UD PRN; Protocol PRN Reason: Hypoglycemia Protocol Stop: 08/03/21 09:55 Promethazine HCl 12.5 mg/ (Sodium Chloride) 50.5 mls @ 202 mls/hr IV Q6H PRN PRN Reason: Nausea And Vomiting Stop: 08/01/21 21:59 Ipratropium [place] (Ipratropium [place] Neb Soln 0.02% 2.5 Ml Vial) 0.5 mg INH Q4H PRN PRN Reason: sob/wheezing Stop: 08/01/21 21:59 Levalbuterol HCl (Levalbuterol 1.25mg/0.5ml Neb) 1.25 mg INH Q4H PRN PRN Reason: sob/wheezing Stop: 08/01/21 21:59 Loratadine (Loratadine 10 Mg Tab) 10 mg PO DAILY [facility] Stop: 08/02/21 08:59 Last Admin: 07/23/21 09:25 Dose: 10 mg Documented by: Lorazepam (Lorazepam 0.5 Mg Tab) 0.5 mg PO HS PRN PRN Reason: Anxiety Stop: 08/13/21 18:18 Last Admin: 07/20/21 22:57 Dose: 0.5 mg Documented by: Miscellaneous (Carbohydrates For Hypoglycemia ) 15 - 30 gm PO UD PRN PRN Reason: Hypoglycemia Protocol Stop: 08/03/21 09:55 Montelukast Sodium (Montelukast Sodium 10 Mg Tablet) 10 mg PO QAM [facility] Stop: 08/02/21 08:59 Last Admin: 07/23/21 09:25 Dose: 10 mg Documented by: Multivitamins (Multivitamin Tab) 1 tab PO DAILY [facility] Stop: 08/02/21 08:59 Last Admin: 07/23/21 09:24 Dose: 1 tab Documented by: Pantoprazole Sodium (Pantoprazole 40 Mg Tab) 40 mg PO DAILY [facility] Stop: 08/02/21 08:59 Last Admin: 07/23/21 09:25 Dose: 40 mg Documented by:
[2021-07-24 06:24] LABS: Basophils # (auto) 0.03 K/uL (0-0.2); Basophils % (auto) 0.4 %; Eosinophils # (auto) 0.38 K/uL (0-0.5); Eosinophils % (auto) 4.7 %; Hematocrit (blood only) 37.5 % (37-47); Hemoglobin 12.4 g/dL (12.0-16.0); Immature Granulocytes # (auto) 0.13 K/uL (0.00-0.02); Immature Granulocytes % (auto) 1.6 %; Lymphocytes # (auto) 1.14 K/uL (1.2-3.4); Mean Corpuscular Hemoglobin 31.3 pg (25-34); Mean Corpuscular Hgb Conc 33.1 g/dL (32-36); Mean Corpuscular Volume 94.7 fL (80-100); Mean Platelet Volume 9.9 fL (7.4-10.4); Monocytes # (auto) 0.86 K/uL (0.11-0.59); Monocytes % (auto) 10.5 %; Neutrophils # (auto) 5.63 K/uL (1.4-6.5); Neutrophils % (auto) 68.8 %; Platelet Count 306 K/uL (130-400); RDW Coefficient of Variation 13.2 % (11.5-14.5); Red Blood Count 3.96 M/uL (4.2-5.4); White Blood Count 8.17 K/uL (4.8-10.8)
[2021-07-24 07:06] LABS: BUN Creatinine Ratio 19.3 (10-20); Calcium 8.6 mg/dl (8.5-10.1); Creatinine Clr Calc Pharmacy 96.7 ml/min; Est GFR (African American) 116.4 ml/min; Est GFR (Non-African American) 100.5 ml/min; Magnesium 2.3 mg/dl (1.8-2.4); Phosphorus 2.4 mg/dl (2.5-4.9); Potassium 3.6 mmol/L (3.5-5.1)
[2021-07-24] MEDS: FLUTICASONE PROPIONATE NA SPR 16 GM BTL SCH (08:08)
[2021-07-24] MEDS: ESCITALOPRAM OXALATE 10 MG TAB PO SCH (08:09)
[2021-07-24] MEDS: LORATADINE 10 MG TAB PO SCH (08:09)
[2021-07-24] MEDS: CYANOCOBALAMIN (VITAMIN B-12) 2,500 MCG TAB.SUBL SL SCH (08:09)
[2021-07-24] MEDS: MULTIVITAMIN TAB PO SCH (08:10)
[2021-07-24] MEDS: amLODIPine BESYLATE 5 MG TAB PO SCH (08:10)
[2021-07-24] MEDS: MONTELUKAST SODIUM 10 MG TABLET PO SCH (08:10)
[2021-07-24] MEDS: PANTOprazole 40 MG TAB PO SCH (08:10)
[2021-07-24] MEDS: ENOXAPARIN INJ 40 MG/0.4 ML SYR SQ SCH (08:11)
[2021-07-24] MEDS ORDERED: POTASSIUM PHOS 3 MMOL/1 ML INFUSION IV STA (16:38)
--- NOTE | 2021-07-24 16:39 | Hospitalist Progress Note ---
Date of Service July 24, 2021 Assessment & Plan (1) Acute hypoxemic respiratory failure: Plan: Patient is a 56 yr female with H/o hypertension, celiac disease, NAFLD presented 07/02 to our ED with complaint of shortness of breathworsening secondary to recent diagnosis of Covid positive at primary care office. Acute hypoxemic respiratory failure COVID 19 Pneumonia --CTA:There is no evidence of pulmonary embolus in the main, lobar, or segmental pulmonary arteries. Multifocal airspace consolidation is consistent with the reported history of a viral pneumonia. Radiographic follow-up to resolution is recommended. Enlarged mediastinal and hilar nodes are likely reactive. 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 Received Remdesivir 1 dose on 07/02/21 Baricitinib doses have been completed on 07/17/2021 Completed 5-day course of dexamethasone 20 mg Plan to continue dexamethasone 10 mg daily for untill 07/18/2021 Lasix, Nebs PRN Continue Pulmonary Hygiene Encourage to prone as able Appreciate pulmonary input and recommendation Clinically a little better today and has been requiring 8 to 12 L of oxygen to maintain saturation Has had a setback early this morning and requiring about 15 L to maintain saturation We will give another dose of Lasix and continue with current treatment Clinically better and will ask for PT and OT evaluation-PT recommended that she can go home Has had to do steps O2 saturation and required 6 L of oxygen to maintain saturation barely She will be transferred to medical floor and was advised to take a few laps in the hallway Much better today at rest but with ambulation the oxygen requirements went up to 8 L Has had 2 step O2 saturation test and she required 6 L to maintain saturation with ambulation She wants to go home and she will take all necessary precautions at home She will be discharged home tomorrow with accepted risk as discussed with her Pneumomediastinum Subcutaneous emphysema Small left apical pneumothorax -Avoid positive airway pressure if possible. -Chest x-ray today showed worsening pneumothorax with mild midline shift Appreciate pulmonary input Repeat chest x-ray showed decreased small left pneumothorax-unchanged small left apical pneumothorax as on 07/17/2021 Repeat chest x-ray did not show any pneumothorax on the left side We will get another x-ray to make sure there is no recurrence of the pneumothorax Repeat chest x-ray showed he had a questionable small pneumothorax in the right apex on 07/19/2021 Oxygen requirements went up to 8 L with ambulation-we will get chest x-ray to rule out any progression of pneumothorax No more pneumomediastinum, chest x-ray shows some progression of the bilateral pneumonia Thrombocythemia Likely secondary to Baricitinib Monitor Platelet count Platelet count trending down -823 on 07/19/2021 We will check tomorrow-has been normalized Hypertension GERD Mood disorder Continue home meds DVT Px: Lovenox SQ Code Status Full code Admission and Anticipated Discharge Date Admission Date: July 02, 2021 Subjective 07/17/2021 The patient was seen and examined in telemetry unit and in the Covid room She was doing much better as of yesterday but her condition has gotten worse since last night She has been requiring 6 L/min 100% FiO2 to maintain saturation this morning Sitting on a chair without any acute distress Has had blood-tinged bowel movement this morning without any obvious bleeding 07/18/2021 The patient was seen and examined in telemetry unit and in the Covid room She has been feeling little better today and has been smiling Denies any cough and/or shortness of breath at rest Has been requiring anywhere from 8 to 12 L oxygen to maintain saturation 07/19/2021 The patient was seen and examined in telemetry unit and in the Covid room She was doing much better until early this morning when she was requiring about 6 L of oxygen to maintain saturation With minimal movement saturation went down below 70s and she has been requiring 15 L right now to maintain saturation Frustrated with this situation but denies any other symptoms during my examination 07/20/2021 The patient was seen and examined in telemetry unit and in the Covid room She has been feeling much better today and has been requiring 5 L to maintain saturation Denies any other significant symptoms at rest 07/21/2021 The patient was seen and examined in telemetry unit and in the Covid room She has been feeling much better and requiring about 2 to 4 L of oxygen at rest to maintain saturation Still has weakness and shortness of breath with minimal exertion 07/22/2021 The patient was seen and examined medical floor She is stable at rest and requiring only 2 L of oxygen to maintain saturation With ambulation the requirements went up to 8 L today and she got very short of breath Not yet ready to be discharged but she is very anxious to go home 07/23/2021 The patient was seen and examined in medical floor She remains very short of breath with minimal exertion and coughing Saturating normally at rest on 2 L of nasal cannula oxygen We will try to ambulate tomorrow and see how she goes 07/24/2021 The patient was seen and examined in medical floor She has been stable at rest but gets shortness of breath with minimal exertion Has had 2 step O2 saturation test and noted to have 6 L of oxygen to maintain saturation with ambulation Likely to go home tomorrow Review of Systems Review of Systems: All systems reviewed and are unremarkable except as noted below Respiratory: Moderate shortness of breath at rest Physical Exam Physical Exam: Sitting on a chair without any apparent distress Constitutional: well developed, well nourished, + ill appearing and average body habitus Eyes: PERRL, conjunctivae normal, anicteric sclerae ENMT: external ear and nose normal, oropharynx normal Neck: trachea midline, no thyromegaly Respiratory: + respiratory distress and + cough Auscultation: + diminished lung sounds and + crackles (At the bases) Cardiovascular: Rate/Rhythm: regular rate and regular rhythm; not tachycardic Heart Sounds: normal S1 and normal S2; no murmur Extremities: no edema Gastrointestinal (Abdomen): Inspection/Auscultation: normal bowel sounds; abdomen not distended Percussion/Palpation: abdomen soft; abdomen nontender Musculoskeletal: No acute arthritis in any joint Neurologic: Alert awake and oriented x3. No focal sensory or motor deficit appreciated Lymphatic: no cervical or axillary lymphadenopathy Results & Data Results & Data ([facility]) Vital Signs (Past 12 Hours) Vital Signs Temp Pulse Pulse Pulse Pulse Pulse Pulse 07/24/21 13:04 96 H 109 H 105 H 105 H 104 H 07/24/21 09:22 07/24/21 07:59 36.7 C 76 Pulse Pulse Resp Resp Resp Resp Resp 07/24/21 13:04 99 H 91 H 16 22 22 22 07/24/21 09:22 07/24/21 07:59 16 Resp Resp Resp BP Pulse Ox Pulse Ox Pulse Ox 07/24/21 13:04 22 18 16 91 84 L 07/24/21 09:22 89 L 07/24/21 07:59 137/82 91 Pulse Ox Pulse Ox Pulse Ox Pulse Ox Pulse Ox 07/24/21 13:04 84 L 83 L 84 L 90 84 L 07/24/21 09:22 07/24/21 07:59 Laboratory Results Short CBC 07/24/21 Range/Units 05:29 WBC 8.17 (4.8-10.8) K/uL Hgb 12.4 (12.0-16.0) g/dL Hct 37.5 (37-47) % Plt Count 306 (130-400) K/uL BMP 07/24/21 05:29 Sodium 139 Potassium 3.6 Chloride 105 Carbon Dioxide 31 BUN 12 Creatinine 0.60 Glucose 89 Calcium 8.6 Medications Administered Current Inpatient Medications Acetaminophen (Acetaminophen 325 Mg Tab) 650 mg PO Q4H PRN PRN Reason: Pain or Fever Stop: 08/01/21 21:59 Last Admin: 07/08/21 20:30 Dose: 650 mg Documented by: Amlodipine Besylate (Amlodipine Besylate 5 Mg Tab) 5 mg PO QAM [facility] Stop: 08/18/21 03:49 Last Admin: 07/24/21 08:10 Dose: 5 mg Documented by: Cyanocobalamin (Cyanocobalamin (Vitamin B-12) 2,500 Mcg Tab.Subl) 2,500 mcg SL [facility] Stop: 08/02/21 08:59 Last Admin: 07/24/21 08:09 Dose: 2,500 mcg Documented by: Dextrose (Dextrose 50% 50 Ml Syringe) 25 - 50 ml IV UD PRN; Protocol PRN Reason: Hypoglycemia Protocol Stop: 08/03/21 09:55 Enoxaparin Sodium (Enoxaparin Inj 40 Mg/0.4 Ml Syr) 40 mg SQ [facility] Stop: 08/09/21 13:59 Last Admin: 07/24/21 08:11 Dose: 40 mg Documented by: Escitalopram Oxalate (Escitalopram Oxalate 10 Mg Tab) 5 mg PO DAILY [facility] Stop: 08/02/21 08:59 Last Admin: 07/24/21 08:09 Dose: 5 mg Documented by: Fluticasone Propionate (Fluticasone Propionate Na Spr 16 Gm Btl) [facility] sprays [facility] Stop: 08/02/21 08:59 Last Admin: 07/24/21 08:08 Dose: 1 sprays Documented by: Glucagon (Glucagon For Inj 1 Mg Vial) 1 mg SQ UD PRN; Protocol PRN Reason: Hypoglycemia Protocol Stop: 08/03/21 09:55 Glucose (Glucose 10 Tabs/Tube) 4 - 8 tabs PO UD PRN; Protocol PRN Reason: Hypoglycemia Protocol Stop: 08/03/21 09:55 Glucose (Glucose 40% Gel 15 Gm Tube) 15 - 30 gm PO UD PRN; Protocol PRN Reason: Hypoglycemia Protocol Stop: 08/03/21 09:55 Promethazine HCl 12.5 mg/ (Sodium Chloride) 50.5 mls @ 202 mls/hr IV Q6H PRN PRN Reason: Nausea And Vomiting Stop: 08/01/21 21:59 Ipratropium [place] (Ipratropium [place] Neb Soln 0.02% 2.5 Ml Vial) 0.5 mg INH Q4H PRN PRN Reason: sob/wheezing Stop: 08/01/21 21:59 Levalbuterol HCl (Levalbuterol 1.25mg/0.5ml Neb) 1.25 mg INH Q4H PRN PRN Reason: sob/wheezing Stop: 08/01/21 21:59 Loratadine (Loratadine 10 Mg Tab) 10 mg PO DAILY [facility] Stop: 08/02/21 08:59 Last Admin: 07/24/21 08:09 Dose: 10 mg Documented by: Lorazepam (Lorazepam 0.5 Mg Tab) 0.5 mg PO HS PRN PRN Reason: Anxiety Stop: 08/13/21 18:18 Last Admin: 07/20/21 22:57 Dose: 0.5 mg Documented by: Miscellaneous (Carbohydrates For Hypoglycemia ) 15 - 30 gm PO UD PRN PRN Reason: Hypoglycemia Protocol Stop: 08/03/21 09:55 Montelukast Sodium (Montelukast Sodium 10 Mg Tablet) 10 mg PO QAM [facility] Stop: 08/02/21 08:59 Last Admin: 07/24/21 08:10 Dose: 10 mg Documented by: Multivitamins (Multivitamin Tab) 1 tab PO DAILY [facility] Stop: 08/02/21 08:59 Last Admin: 07/24/21 08:10 Dose: 1 tab Documented by: Pantoprazole Sodium (Pantoprazole 40 Mg Tab) 40 mg PO DAILY [facility] Stop: 08/02/21 08:59 Last Admin: 07/24/21 08:10 Dose: 40 mg Documented by:
[2021-07-24] MEDS ORDERED: FUROSEMIDE 40 MG/4 ML VIAL IV ONE (17:00)
[2021-07-24] MEDS ORDERED: POTASSIUM PHOSPHATE 24 MMOL in SODIUM CHLORIDE 0.9% 500 ML IV ONE (17:15)
[2021-07-25 08:10] LABS: BUN Creatinine Ratio 25.5 (10-20); Calcium 9.4 mg/dl (8.5-10.1); Creatinine Clr Calc Pharmacy 85.3 ml/min; Est GFR (African American) 111.8 ml/min; Est GFR (Non-African American) 96.4 ml/min; Magnesium 2.2 mg/dl (1.8-2.4); Potassium 3.7 mmol/L (3.5-5.1)
[2021-07-25] MEDS: PANTOprazole 40 MG TAB PO SCH (09:14)
[2021-07-25] MEDS: CYANOCOBALAMIN (VITAMIN B-12) 2,500 MCG TAB.SUBL SL SCH (09:14)
[2021-07-25] MEDS: ENOXAPARIN INJ 40 MG/0.4 ML SYR SQ SCH (09:14)
[2021-07-25] MEDS: LORATADINE 10 MG TAB PO SCH (09:15)
[2021-07-25] MEDS: MULTIVITAMIN TAB PO SCH (09:15)
[2021-07-25] MEDS: MONTELUKAST SODIUM 10 MG TABLET PO SCH (09:15)
[2021-07-25] MEDS: ESCITALOPRAM OXALATE 10 MG TAB PO SCH (09:16)
[2021-07-25] MEDS: FLUTICASONE PROPIONATE NA SPR 16 GM BTL SCH (09:17)
[2021-07-25] MEDS: amLODIPine BESYLATE 5 MG TAB PO SCH (09:17)
--- NOTE | 2021-07-25 11:55 | Hospitalist Progress Note ---
Date of Service July 25, 2021 Assessment & Plan (1) Acute hypoxemic respiratory failure: Plan: Patient is a 56 yr female with H/o hypertension, celiac disease, NAFLD presented 07/02 to our ED with complaint of shortness of breathworsening secondary to recent diagnosis of Covid positive at primary care office. Acute hypoxemic respiratory failure COVID 19 Pneumonia --CTA:There is no evidence of pulmonary embolus in the main, lobar, or segmental pulmonary arteries. Multifocal airspace consolidation is consistent with the reported history of a viral pneumonia. Radiographic follow-up to resolution is recommended. Enlarged mediastinal and hilar nodes are likely reactive. 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 Received Remdesivir 1 dose on 07/02/21 Baricitinib doses have been completed on 07/17/2021 Completed 5-day course of dexamethasone 20 mg Plan to continue dexamethasone 10 mg daily for untill 07/18/2021 Lasix, Nebs PRN Continue Pulmonary Hygiene Encourage to prone as able Appreciate pulmonary input and recommendation Clinically a little better today and has been requiring 8 to 12 L of oxygen to maintain saturation Has had a setback early this morning and requiring about 15 L to maintain saturation We will give another dose of Lasix and continue with current treatment Clinically better and will ask for PT and OT evaluation-PT recommended that she can go home Has had to do steps O2 saturation and required 6 L of oxygen to maintain saturation barely She will be transferred to medical floor and was advised to take a few laps in the hallway Much better today at rest but with ambulation the oxygen requirements went up to 8 L Has had 2 step O2 saturation test and she required 6 L to maintain saturation with ambulation She wants to go home and she will take all necessary precautions at home She will be discharged home tomorrow with accepted risk as discussed with her She has been saturating normally on 2.5 to 3 L of oxygen at rest and she desperately wants to go home today To a step O2 saturation test that was done yesterday documented that she will need up to 6 L with ambulation to maintain saturation She will be discharged home today and she is ready to take that accepted risk of getting worse at home Pneumomediastinum Subcutaneous emphysema Small left apical pneumothorax -Avoid positive airway pressure if possible. -Chest x-ray today showed worsening pneumothorax with mild midline shift Appreciate pulmonary input Repeat chest x-ray showed decreased small left pneumothorax-unchanged small left apical pneumothorax as on 07/17/2021 Repeat chest x-ray did not show any pneumothorax on the left side We will get another x-ray to make sure there is no recurrence of the pneumothorax Repeat chest x-ray showed he had a questionable small pneumothorax in the right apex on 07/19/2021 Oxygen requirements went up to 8 L with ambulation-we will get chest x-ray to rule out any progression of pneumothorax No more pneumomediastinum, chest x-ray shows some progression of the bilateral pneumonia Thrombocythemia Likely secondary to Baricitinib Monitor Platelet count Platelet count trending down -823 on 07/19/2021 We will check tomorrow-has been normalized Hypertension GERD Mood disorder Continue home meds DVT Px: Lovenox SQ Code Status Full code Admission and Anticipated Discharge Date Admission Date: July 02, 2021 Subjective 07/17/2021 The patient was seen and examined in telemetry unit and in the Covid room She was doing much better as of yesterday but her condition has gotten worse since last night She has been requiring 6 L/min 100% FiO2 to maintain saturation this morning Sitting on a chair without any acute distress Has had blood-tinged bowel movement this morning without any obvious bleeding 07/18/2021 The patient was seen and examined in telemetry unit and in the Covid room She has been feeling little better today and has been smiling Denies any cough and/or shortness of breath at rest Has been requiring anywhere from 8 to 12 L oxygen to maintain saturation 07/19/2021 The patient was seen and examined in telemetry unit and in the Covid room She was doing much better until early this morning when she was requiring about 6 L of oxygen to maintain saturation With minimal movement saturation went down below 70s and she has been requiring 15 L right now to maintain saturation Frustrated with this situation but denies any other symptoms during my examination 07/20/2021 The patient was seen and examined in telemetry unit and in the Covid room She has been feeling much better today and has been requiring 5 L to maintain saturation Denies any other significant symptoms at rest 07/21/2021 The patient was seen and examined in telemetry unit and in the Covid room She has been feeling much better and requiring about 2 to 4 L of oxygen at rest to maintain saturation Still has weakness and shortness of breath with minimal exertion 07/22/2021 The patient was seen and examined medical floor She is stable at rest and requiring only 2 L of oxygen to maintain saturation With ambulation the requirements went up to 8 L today and she got very short of breath Not yet ready to be discharged but she is very anxious to go home 07/23/2021 The patient was seen and examined in medical floor She remains very short of breath with minimal exertion and coughing Saturating normally at rest on 2 L of nasal cannula oxygen We will try to ambulate tomorrow and see how she goes 07/24/2021 The patient was seen and examined in medical floor She has been stable at rest but gets shortness of breath with minimal exertion Has had 2 step O2 saturation test and noted to have 6 L of oxygen to maintain saturation with ambulation Likely to go home tomorrow 07/25/2021 The patient was seen and examined in medical floor She requires 2.5-3L oxygen to maintain saturation at rest Prior to a step showed that she will need 3 L at rest and up to 6 L with ambulation She wants to go home and she is ready to take the risk of increasing shortness of breath at home Review of Systems Review of Systems: All systems reviewed and are unremarkable except as noted below Respiratory: Moderate shortness of breath at rest Physical Exam Physical Exam: Lying in bed without any acute discomfort Constitutional: well developed, well nourished, + ill appearing and average body habitus Eyes: PERRL, conjunctivae normal, anicteric sclerae ENMT: external ear and nose normal, oropharynx normal Neck: trachea midline, no thyromegaly Respiratory: + respiratory distress and + cough Auscultation: + diminished lung sounds and + crackles (At the bases) Cardiovascular: Rate/Rhythm: regular rate and regular rhythm; not tachycardic Heart Sounds: normal S1 and normal S2; no murmur Extremities: no edema Gastrointestinal (Abdomen): Inspection/Auscultation: normal bowel sounds; abdomen not distended Percussion/Palpation: abdomen soft; abdomen nontender Musculoskeletal: No acute arthritis involving any joint Neurologic: Alert, awake and oriented x3. Lymphatic: no cervical or axillary lymphadenopathy Results & Data Results & Data ([facility]) Vital Signs (Past 12 Hours) Vital Signs Temp Pulse Pulse Resp BP BP Pulse Ox 07/25/21 11:30 36.6 C 92 H 76 18 142/82 H 154/85 H 93 07/25/21 07:00 36.6 C 76 18 154/85 H 93 Laboratory Results BMP 07/25/21 06:06 Sodium 139 Potassium 3.7 Chloride 104 Carbon Dioxide 27 BUN 17 Creatinine 0.68 Glucose 99 Calcium 9.4 Medications Administered Current Inpatient Medications Acetaminophen (Acetaminophen 325 Mg Tab) 650 mg PO Q4H PRN PRN Reason: Pain or Fever Stop: 08/01/21 21:59 Last Admin: 07/08/21 20:30 Dose: 650 mg Documented by: Amlodipine Besylate (Amlodipine Besylate 5 Mg Tab) 5 mg PO QAM [facility] Stop: 08/18/21 03:49 Last Admin: 07/25/21 09:17 Dose: 5 mg Documented by: Cyanocobalamin (Cyanocobalamin (Vitamin B-12) 2,500 Mcg Tab.Subl) [facility] Stop: 08/02/21 08:59 Last Admin: 07/25/21 09:14 Dose: 2,500 mcg Documented by: Dextrose (Dextrose 50% 50 Ml Syringe) 25 - 50 ml IV UD PRN; Protocol PRN Reason: Hypoglycemia Protocol Stop: 08/03/21 09:55 Enoxaparin Sodium (Enoxaparin Inj 40 Mg/0.4 Ml Syr) [facility] [place] Stop: 08/09/21 13:59 Last Admin: 07/25/21 09:14 Dose: 40 mg Documented by: Escitalopram Oxalate (Escitalopram Oxalate 10 Mg Tab) 5 mg PO DAILY [facility] Stop: 08/02/21 08:59 Last Admin: 07/25/21 09:16 Dose: 5 mg Documented by: Fluticasone Propionate (Fluticasone Propionate Na Spr 16 Gm Btl) 1 sprays NA QAM [facility] Stop: 08/02/21 08:59 Last Admin: 07/25/21 09:17 Dose: 1 sprays Documented by: Glucagon (Glucagon For Inj 1 Mg Vial) 1 mg SQ UD PRN; Protocol PRN Reason: Hypoglycemia Protocol Stop: 08/03/21 09:55 Glucose (Glucose 10 Tabs/Tube) 4 - 8 tabs PO UD PRN; Protocol PRN Reason: Hypoglycemia Protocol Stop: 08/03/21 09:55 Glucose (Glucose 40% Gel 15 Gm Tube) 15 - 30 gm PO UD PRN; Protocol PRN Reason: Hypoglycemia Protocol Stop: 08/03/21 09:55 Promethazine HCl 12.5 mg/ (Sodium Chloride) 50.5 mls @ 202 mls/hr IV Q6H PRN PRN Reason: Nausea And Vomiting Stop: 08/01/21 21:59 Ipratropium Reserve (Ipratropium Reserve Neb Soln 0.02% 2.5 Ml Vial) 0.5 mg INH Q4H PRN PRN Reason: sob/wheezing Stop: 08/01/21 21:59 Levalbuterol HCl (Levalbuterol 1.25mg/0.5ml Neb) 1.25 mg INH Q4H PRN PRN Reason: sob/wheezing Stop: 08/01/21 21:59 Loratadine (Loratadine 10 Mg Tab) 10 mg PO DAILY [facility] Stop: 08/02/21 08:59 Last Admin: 07/25/21 09:15 Dose: 10 mg Documented by: Lorazepam (Lorazepam 0.5 Mg Tab) 0.5 mg PO HS PRN PRN Reason: Anxiety Stop: 08/13/21 18:18 Last Admin: 07/20/21 22:57 Dose: 0.5 mg Documented by: Miscellaneous (Carbohydrates For Hypoglycemia ) 15 - 30 gm PO UD PRN PRN Reason: Hypoglycemia Protocol Stop: 08/03/21 09:55 Montelukast Sodium (Montelukast Sodium 10 Mg Tablet) 10 mg PO QAM [place] Stop: 08/02/21 08:59 Last Admin: 07/25/21 09:15 Dose: 10 mg Documented by: Multivitamins (Multivitamin Tab) 1 tab PO DAILY [place] Stop: 08/02/21 08:59 Last Admin: 07/25/21 09:15 Dose: 1 tab Documented by: Pantoprazole Sodium (Pantoprazole 40 Mg Tab) 40 mg PO DAILY [place] Stop: 08/02/21 08:59 Last Admin: 07/25/21 09:14 Dose: 40 mg Documented by:
--- NOTE | 2021-08-02 08:53 | Discharge Summary ---
Date of Service August 02, 2021 Admission HPI Per Admitting Provider Chief Complaint: Worsening shortness of breath, Covid positive Primary Care Provider: Dr. Swartz History obtained from patient, family, and records. Medical history significant for hypertension, celiac disease, NAFLD. 10 days ago, patient noted sinus pressure with congestion symptoms. Patient prescribed cefdinir and prednisone course for possible sinusitis. Outpatient COVID-19 test noted to be positive. Patient has not received COVID-19 vaccination. Worsening congestion with sticky cough and shortness of breath symptoms over the next few days. No chest pain. Patient seen at PCPs office today. O2 sats noted to be 80s on room air. Patient directed to the ER for evaluation. Decadron, remdesivir, neb treatment administered at the ER. O2 sats still in the 80s despite patient being proned at the ER. Admission Exam Per Admitting Provider Physical Exam: GENERAL: Slightly uncomfortable, slightly anxious, no respiratory distress, prone position at the ER SKIN: Normal color, warm HEENT: [place] palpebral conjunctivae, no ptosis, dry buccal mucosa, O2 mask in place NECK : Supple, no tenderness CHEST : Decreased breath sounds, occasional expiratory wheezes, no tenderness HEART : RRR, no obvious murmurs ABDOMEN: Some distention, nontender EXTREMITIES : No LE swelling/tenderness, no other conspicuous deformities noted NEUROLOGIC : Coherent, no facial asymmetry, no other gross focality Principal Diagnosis Acute hypoxic respiratory failure, pneumonia due to COVID-19 virus infection COVID-19 virus infection, hypertension Discharge Exam Lying in bed without any acute discomfort Constitutional well developed, well nourished, + ill appearing and average body habitus Eyes PERRL, conjunctivae normal, anicteric sclerae ENMT external ear and nose normal, oropharynx normal Neck trachea midline, no thyromegaly Respiratory + respiratory distress and + cough Auscultation: + diminished lung sounds and + crackles (At the bases) Cardiovascular Rate/Rhythm: regular rate and regular rhythm; not tachycardic Heart Sounds: normal S1 and normal S2; no murmur Extremities: no edema Gastrointestinal (Abdomen) Inspection/Auscultation: normal bowel sounds; abdomen not distended Percussion/Palpation: abdomen soft; abdomen nontender Lymphatic no cervical or axillary lymphadenopathy Discharge Data Allergies Allergy/AdvReac Type Severity Reaction Status Date / Time gluten Allergy Severe celiac's Verified 07/02/21 20:44 disease wheat Allergy Severe celiac's Verified 07/02/21 20:44 diease adhesive Allergy Mild Rash Verified 07/02/21 20:44 Sulfa (Sulfonamide Allergy Unknown CHILDHOOD Verified 07/02/21 20:44 Antibiotics) - UNKNOWN Consultations 07/02/21 19:19 ED Decision to Admit Stat 07/02/21 22:00 Consult Pulmonology Routine Ordered Studies 07/03/21 13:40 US venous doppler LE BI Routine 07/04/21 10:53 CT angio chest PE protocol Routine Hospital Course (1) Acute hypoxemic respiratory failure: Patient is a 56 yr female with H/o hypertension, celiac disease, NAFLD presented 07/02 to our ED with complaint of shortness of breathworsening secondary to recent diagnosis of Covid positive at primary care office. Acute hypoxemic respiratory failure COVID 19 Pneumonia --CTA:There is no evidence of pulmonary embolus in the main, lobar, or segmental pulmonary arteries. Multifocal airspace consolidation is consistent with the reported history of a viral pneumonia. Radiographic follow-up to resolution is recommended. Enlarged mediastinal and hilar nodes are likely reactive. -Symptoms for 10 days [employer]. 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 Received Remdesivir 1 dose on 07/02/21 Baricitinib doses have been completed on 07/17/2021 Completed 5-day course of dexamethasone 20 mg Plan to continue dexamethasone 10 mg daily for untill 07/18/2021 Lasix, Nebs PRN Continue Pulmonary Hygiene Encourage to prone as able Appreciate pulmonary input and recommendation Clinically a little better today and has been requiring 8 to 12 L of oxygen to maintain saturation Has had a setback early this morning and requiring about 15 L to maintain saturation We will give another dose of Lasix and continue with current treatment Clinically better and will ask for PT and OT evaluation-PT recommended that she can go home Has had to do steps O2 saturation and required 6 L of oxygen to maintain saturation barely She will be transferred to medical floor and was advised to take a few laps in the hallway Much better today at rest but with ambulation the oxygen requirements went up to 8 L Has had 2 step O2 saturation test and she required 6 L to maintain saturation with ambulation She wants to go home and she will take all necessary precautions at home She will be discharged home tomorrow with accepted risk as discussed with her She has been saturating normally on 2.5 to 3 L of oxygen at rest and she desperately wants to go home today To a step O2 saturation test that was done yesterday documented that she will need up to 6 L with ambulation to maintain saturation She will be discharged home today and she is ready to take that accepted risk of getting worse at home Pneumomediastinum Subcutaneous emphysema Small left apical pneumothorax -Avoid positive airway pressure if possible. -Chest x-ray today showed worsening pneumothorax with mild midline shift Appreciate pulmonary input Repeat chest x-ray showed decreased small left pneumothorax-unchanged small left apical pneumothorax as on 07/17/2021 Repeat chest x-ray did not show any pneumothorax on the left side We will get another x-ray to make sure there is no recurrence of the pneumothorax Repeat chest x-ray showed he had a questionable small pneumothorax in the right apex on 07/19/2021 Oxygen requirements went up to 8 L with ambulation-we will get chest x-ray to rule out any progression of pneumothorax No more pneumomediastinum, chest x-ray shows some progression of the bilateral pneumonia Thrombocythemia Likely secondary to Baricitinib Monitor Platelet count Platelet count trending down -823 on 07/19/2021 We will check tomorrow-has been normalized Hypertension GERD Mood disorder Continue home meds DVT Px: Lovenox SQ Code Status Full code Total Time Total Time Spent Total Time Spent (In Minutes): 35 minutes Discharge Plan Discharge Items Patient Disposition: Home - Self-Care Reason For Visit: RESP FAILURE, COVID Discharge Diagnosis: Acute hypoxic respiratory failure, pneumonia due to COVID-19 virus infection COVID-19 virus infection, hypertension Condition on Discharge: Fair Activity: As commented below Activity Comment: Please take it easy for the next few weeks as advised Non-emergency contact: Primary Care Provider Call non-emergency contact if: you have any medication questions and your symptoms worsen Follow-up/Referrals: Zaida Bansal PA-C [Primary Care Provider] - 07/27/21 3:20 pm (Date & Time 07/27/2021 3:20 PM Provider Sanchez Dominique MD [facility] PLEASE NOTE THAT THIS IS A TELEMEDICINE APPOINTMENT. PLEASE FOLLOW THE INSTRUCTIONS PROVIDED IN YOUR EMAIL. IF YOU HAVE ANY QUESTIONS REGARDING THIS APPOINTMENT, PLEASE CALL ) Diet: Gluten Free Addtl Attending Provider Instructions: Please take precautions to avoid fall Take it easy for the next few weeks Take oxygen as advised and try to avoid any stimulants for shortness of breath as explained Please keep appointments with your healthcare providers Pending Studies at Discharge: No Stand-Alone Forms: My [facility], Smoking Cessation Medications and DC Order Prescriptions: New amlodipine [Norvasc] 5 mg Tablet 5 mg PO QAM 30 Days Qty: 30 RF: 0 Continued escitalopram oxalate [Lexapro] 5 mg tablet 5 mg PO DAILY Qty: 30 RF: 11 montelukast 10 mg tablet 10 mg PO QAM RF: 0 Allergy Relief (cetirizine) 10 mg capsule 10 mg PO QAM RF: 0 calcium carbonate [Calcium 500] 500 mg calcium (1,250 mg) Tablet,Chewable 1,000 mg PO QAM RF: 0 hydrochlorothiazide 25 mg Tablet 25 mg PO QAM RF: 0 fluticasone propionate [Flonase Allergy Relief] 50 mcg/actuation [place],Suspension 1 spray INTRANASAL QAM RF: 0 cyanocobalamin (vitamin B-12) 2,500 mcg Tablet 2,500 mcg PO QAM RF: 0 multivitamin Tablet 1 tab PO DAILY RF: 0 pantoprazole 40 mg tablet,delayed release (DR/EC) 40 mg PO DAILY RF: 0 albuterol sulfate 90 mcg/actuation HFA aerosol inhaler 1 - 2 puff INHALATION Q6 PRN (Reason: WHEEZE, COUGH, SOOB) RF: 0 chromium 1,000 mcg Tablet 100 mcg PO DAILY RF: 0 loratadine [Claritin] 10 mg Tablet 10 mg PO DAILY RF: 0 Move Free [facility] 750 mg-100 mg- 1.65 mg-108 mg Tablet 1 tab PO DAILY RF: 0 No Action benzonatate 100 mg capsule 100 mg PO HS PRN (Reason: cough) Qty: 30 RF: 0 benzonatate [Tessalon Perles] 100 mg capsule 100 mg PO HS PRN (Reason: Cough) RF: 0 Discharge Orders: Discharge Order (Routine); Ordered 07/25/21 Ordered By: Tavo Bryant/Other Patient Handouts: Using Oxygen Safely Admission Data Admit Date/Time: 07/02/21 20:36 Attending Provider: Tavo Watkins Admit Provider: Gualberto Patel Primary Care Provider: Zaida Bansal Other Providers: Que Damian ; Maurice Rivera Other Interventions: Discharge Summary Assessment (RN) Last Done: 07/25/21 11:30
== END 2021-07-25 16:05 | disposition home or self-care (01) | DRG 177 ==
LOC: ED 15:21 → SUATTDRO 20:36 → 2E 20:36 → 3E 07-21 14:08
DX: U07.1 COVID-19; R73.9 Hyperglycemia, unspecified; Z91.018 Allergy to other foods; E87.6 Hypokalemia; T50.2X5A Adverse effect of carbonic-anhydrase inhibitors, benzothiadiazides and other diuretics, initial encounter; D75.838 Other thrombocytosis; N17.9 Acute kidney failure, unspecified; K90.0 Celiac disease; F40.240 Claustrophobia; Z51.81 Encounter for therapeutic drug level monitoring; J12.82 Pneumonia due to coronavirus disease 2019; F41.9 Anxiety disorder, unspecified; T50.905A Adverse effect of unspecified drugs, medicaments and biological substances, initial encounter; K21.9 Gastro-esophageal reflux disease without esophagitis; Z91.048 Other nonmedicinal substance allergy status; Z79.899 Other long term (current) drug therapy; J93.83 Other pneumothorax; I10 Essential (primary) hypertension; Z88.2 Allergy status to sulfonamides; J98.2 Interstitial emphysema; R79.82 Elevated C-reactive protein (CRP); J80 Acute respiratory distress syndrome